=== PATIENT | male | born 1950 | race Caucasian/White ===

== ENCOUNTER 2019-09-20 10:39 | Outpatient (CLI) | payer MEDICAID, MEDICARE, SELFPAY | END 2019-09-20 10:40 | disposition home or self-care (01) | LOC: RAD 10:46 | PROVIDERS: Visit Provider Registered Nurse | DX: M54.41 Lumbago with sciatica, right side (principal); M54.42 Lumbago with sciatica, left side; G89.29 Other chronic pain; M25.562 Pain in left knee; M25.362 Other instability, left knee ==

== ENCOUNTER 2019-10-22 13:10 | Outpatient (CLI) | payer MEDICARE, MEDICAID, SELFPAY ==
--- NOTE | 2019-10-22 13:29 | MR_ITS ---
WS: [id number] MRI LEFT KNEE HISTORY: ARTHRITIS COMPARISON: None available. Anterior cruciate ligament: Intact. Posterior cruciate ligament: There is abnormal signal in orientation of the posterior cruciate ligame nt. Tear in the mid body of the PCL. Medial collateral ligament: Intact. Posterior lateral corner structures: Intact. Medial menisci: Intrasubstance degeneration in the posterior horn. No tear is appreciated. Increased signal extends into the meniscal root. Lateral meniscus: Intact. Normal signal, size and shape. Extensor mechanism: Distal quadriceps tendon and patellar tendons are intact. Fluid and soft tissue: Small suprapatellar joint effusion. Very tiny amount of fluid in the region of Atkins's cyst. Osseous and articular structures: Patellofemoral compartment: Mild narrowing of patellofemoral joint space. Mild thinning of the cartil age but no marrow signal abnormality. Medial compartment: Mild narrowing with preservation of the cartilage. Lateral compartment: Mild narrowing with preservation of the cartilage. MR/MR knee LT wo con* [id number] IMPRESSION: 1. Abnormal PCL. Markedly thickened PCL with increased signal and loss of the normal fibers. Suspect grade versus complete tear in the mid body of the PCL. 2. Mild tricompartment osteoarthritis. 3. Moderate-sized suprapatellar joint effusion.
--- NOTE | 2019-10-22 13:29 | MR_ITS ---
WS: [id number] MRI LUMBAR SPINE NONCONTRAST HISTORY: CHRONIC MIDLINE LOW BACK PAIN WITH BILATERAL SCIATICA COMPARISON: None available. TECHNIQUE: Sagittal and axial multisequence imaging is submitted. Motion artifact in the cervical region. Mild central stenosis as expected at the C4-5 level. Straightening of the normal lumbar lordosis. Degenerative spondylitic changes and disc desiccation th roughout the lumbar spine. There is marrow edema in the L4 and L5 vertebral body which is probably de generative. No fracture. Mild desiccation of the disc. Conus terminates normally at L1-2 disc level. L1-L2: Annular disc bulging and moderate osteophytic ridging. Mild facet arthropathy. Mild contact on the ventral thecal sac. There is mild central and subarticular recess stenosis. Disc osteophyte comp mike centrally encroaches upon the conus. L2-L3: Annular disc bulging and osteophytosis. Mild facet joint arthropathy. Mild central and subarti cular recess stenosis. L3-L4: Diffuse annular disc bulging and facet arthropathy. Mild central and subarticular recess steno sis. Mild encroachment of the foramen. L4-L5: Annular disc bulging and facet arthropathy. Severe ligamentum flavum hypertrophy and facet dennys nt arthropathy encroaching upon the thecal sac. Osteophytes encroach into the subarticular recesses. Moderate central and subarticular recess stenosis. Moderate bilateral foraminal stenosis. L5-S1: Facet joint osteophytes extend into the foramen. Moderate bilateral foraminal stenosis. Predom inantly due to facet arthropathy. Seen only on the localizer image is a mass from the superior pole of the RIGHT kidney measuring 4.1 c m. May be a cyst. Solid mass needs to be excluded. Abdominal aortic aneurysm measuring 4.3 cm is also suspected. MR/MR lumbar spine wo con* [id number] IMPRESSION: 1. Quality of examination is limited by motion. 2. Multilevel significant lumbar spondylosis. 3. Moderate central, subarticular recess and foraminal stenosis at L4-5. 4. Moderate bilateral foraminal stenosis at L5-S1. Osteophytes encroach into t he foramen from the facet joints. 5. Mild central and subarticular recess stenosis at L1-2 and L2-3 and L3-4. Di sc osteophyte encroachment upon the conus at the L1-2 level. 6. Abdominal aortic aneurysm measures 4.3 cm. Recommend follow-up ultrasound e valuation. 7. RIGHT renal mass. 4.1 cm mass in the superior pole RIGHT kidney. Recommend follow-up ultrasound evaluation to characterize mass further.
== END 2019-10-22 13:11 | disposition home or self-care (01) ==
PROVIDERS: Visit Provider Registered Nurse
DX: M47.896 Other spondylosis, lumbar region (principal); M48.061 Spinal stenosis, lumbar region without neurogenic claudication; I71.4 Abdominal aortic aneurysm, without rupture; M17.12 Unilateral primary osteoarthritis, left knee; M25.362 Other instability, left knee; M25.462 Effusion, left knee
CPT/HCPCS: 72148; 73721

== ENCOUNTER 2019-10-31 14:20 | Outpatient (CLI) | payer MEDICARE, MEDICAID, SELFPAY ==
--- NOTE | 2019-10-31 14:25 | US_ITS ---
WS: [id number] Bilateral renal ultrasound, 10/31/2019 Clinical Data: MASS OF RIGHT KIDNEY Comparison: MRI of the lumbar spine, 10/22/2019 Findings: The right kidney measures 11.1 cm x 5.6 cm x 7.0 cm and the left kidney is 11.0 cm x 6.1 cm x 7.1 cm. And is a simple cyst of the right kidney measured 3.67 x 4.06 x 4.16 cm. No right renal mass is note d. The left kidney shows no cysts, masses or hydronephrosis. The abdominal aorta shows an abdominal a ortic aneurysm with the greatest AP diameter of 4.04 cm. No leakage is seen. Inferior cava is unremar kable. The bladder was scanned and was not remarkable. There was an enlarged prostate measuring 4.37 x 4.91 x 5.65 cm. US/US renal BI with bladder Impression: 1. Negative bilateral renal ultrasound. 2. Simple cyst of the right kidney with greatest diameter of 4.06 cm. 3. Abdominal aortic aneurysm measuring 4.04 cm. 4. Prostate enlarged.
--- NOTE | 2019-10-31 14:28 | USCV_ITS ---
José Lu Age: 69 Gender: M : 1950 Exam Date: 10/31/2019 14:51 Ordering Phys: Jael Rajan RADAR REPAIRER RADAR REPAIRER Technologist: Maye Amaro Exam Location: [facility] – [place] Indication: AAA SEEN ON MRI HISTORY: EVAUL OF AAA Diameter (cm) AP x Transverse x Length Velocity (cm/s) Waveform Prox Aorta: 2.29 x 2.29 x 93.80 Mid Aorta: 4.18 x 4.34 x 8.34 121.50 Distal Aorta: 3.30 x 3.48 x 49.40 Right Iliac Prox: 1.68 x 1.58 x 66.10 Left Iliac Prox: 1.51 x 1.57 x 63.50 Stent Prox Landing x x Aneurysmal Sac Max x x Lt Lat Sac Dim Rt Lat Sac Dim Stent Dist Landing x x Right Iliac Stent x x Left Iliac Stent x x Right Renal Art Left Renal Art FINDINGS: CONCLUSIONS AAA mid and distal abdominal aorta measuring 4.1 x 4.3cm AP x Transverse mid aorta and 3.3 x 3.4cm distal aorta. Normal iliac arteries. Moderate arteriovascular disease within the abdominal aorta. Axel Holcomb MD (Electronically Signed) Final Date: 31 October 2019 15:35 S
== END 2019-10-31 14:21 | disposition home or self-care (01) ==
LOC: RAD 14:23 → RAD CLINIC 14:23
PROVIDERS: Referring Provider Registered Nurse; Visit Provider Orthopaedic Surgery
DX: N28.89 Other specified disorders of kidney and ureter (principal); I71.4 Abdominal aortic aneurysm, without rupture; N28.1 Cyst of kidney, acquired; N40.0 Benign prostatic hyperplasia without lower urinary tract symptoms; M25.562 Pain in left knee
CPT/HCPCS: 73560; 73565; 76706; 76770; 76857

== ENCOUNTER 2019-12-15 09:10 | Outpatient (CLI) | payer MEDICARE, MEDICAID, SELFPAY ==
--- NOTE | 2019-12-15 10:00 | CT_ITS ---
WS: [id number] CTA ABDOMEN TECHNIQUE: Noncontrast plus contrast enhanced CTA of the abdominal aorta with coronal and sagittal re formatted images and additional MIP Images. CLINICAL INFORMATION: AAA by ultrasound COMPARISON: Ultrasound October 31, 2019 DLP: 882.[address] scans at [facility] [place] use at least one of these dose optimization techniques: automat ed exposure control; mA and/or kV adjustment per patient size (includes targeted exams where dose is matched to clinical indication); or iterative reconstruction. FINDINGS: Comparison recent ultrasound October 31, 2019. Again seen is the infrarenal abdominal aortic aneurys m measuring 3.6 x 3.6 x 7.6 cm AP by transverse by craniocaudal. Retroaortic left renal vein. Slightl y tortuous and ectatic common iliac arteries right greater than left. Mild aortic atheromatous disease. Celiac and SMA are patent with mild calcification at the origins. P roximal renal arteries are patent. Mild stenosis of the left renal artery origin. Inferior mesenteric artery appears patent. Normal renal parenchyma enhancement. Adrenal glands are normal. No hydronephrosis. Right renal cyst m easuring 4.1 x 4.7 CM. Liver appears normal. Normal gallbladder. Normal spleen. Normal GE junction. L simon bases are well aerated. Calcified granuloma right lower lobe. Normal caliber small and large bowel. Enlarged prostate measuring 4.8 x 7.0 x 6.6 CM. Recommend corre lation PSA.. CT/CT angio abdomen pelvis [id number] IMPRESSION: 1. Infrarenal abdominal aortic aneurysm measuring 3.6 x 3.6 x 7.6 cm AP by tra nsverse by craniocaudal. 2. Celiac, SMA, and YELITZA are patent. 3. Both renal arteries are patent with mild stenosis of the left renal artery origin. 4. Right upper pole renal cyst measuring 4.1 x 4.7 cm. 5. Enlarged prostate measuring 4.8 x 7.0 6.6 cm. Recommend correlation PSA.
[2019-12-15] MEDS: iohexol 350 mg/mL 100 mL Btl IV (11:05)
[2019-12-15 11:51] LABS: Blood Urea Nitrogen 18 mg/dL (8-23); Glomerular Filtration Rate 60.4 mL/min (90-130)
== END 2019-12-15 09:11 | disposition home or self-care (01) ==
LOC: RADWPI 09:14
PROVIDERS: PCP Registered Nurse; Visit Provider Thoracic Surgery (Cardiothoracic Vascular Surgery)
DX: I71.4 Abdominal aortic aneurysm, without rupture (principal); I70.1 Atherosclerosis of renal artery; N28.1 Cyst of kidney, acquired; N40.0 Benign prostatic hyperplasia without lower urinary tract symptoms
CPT/HCPCS: 74174; 82565; 84520; Q9967

== ENCOUNTER 2020-06-15 10:14 | Outpatient (CLI) | payer MEDICARE, MEDICAID, SELFPAY ==
--- NOTE | 2020-06-15 10:15 | USCV_ITS ---
José Lu Age: 70 Gender: M : 1950 Exam Date: 06/15/2020 10:21 Ordering Phys: Jose Valladares MD (Andy) ([email or web address]) Technologist: Addison Narvaez Exam Location: [facility] – [place] Indication: AAA HISTORY: Diameter (cm) AP x Transverse x Length Velocity (cm/s) Waveform Prox Aorta: 2.17 x 2.13 x 78.50 Biphasic Mid Aorta: 4.02 x 4.05 x 74.40 Biphasic Distal Aorta: 3.17 x 3.05 x 70.20 Biphasic Right Iliac Prox: 1.39 x 1.33 x 82.00 Biphasic Left Iliac Prox: 1.27 x 1.43 x 81.00 Biphasic Stent Prox Landing x x Aneurysmal Sac Max x x Lt Lat Sac Dim Rt Lat Sac Dim Stent Dist Landing x x Right Iliac Stent x x Left Iliac Stent x x Right Renal Art Left Renal Art FINDINGS: Mild to moderate diffuse plaques in the abdominal aorta. Fusiform dilatation of the mid and distal abdominal aorta. Normal Doppler flow velocities CONCLUSIONS Aneurysmal dilatation of the mid abdominal aorta measuring 4.02 x 4.05 cm Aneurysmal dilatation of the distal abdominal aorta measuring 3.17 x 3.05 cm Mild to moderate diffuse plaques in the abdominal aorta. Slightly ectatic proximal common iliac arteries bilaterally. Compared to the study from 10/31/2019, there may not be a significant change in the size of the aneurysm Dr Raman Gomez MD [facility] (Electronically Signed) Final Date: 15 June 2020 18:50 S
== END 2020-06-15 10:15 | disposition home or self-care (01) ==
LOC: US 10:17
PROVIDERS: PCP Registered Nurse; Visit Provider Thoracic Surgery (Cardiothoracic Vascular Surgery)
DX: I71.4 Abdominal aortic aneurysm, without rupture (principal)
CPT/HCPCS: 93978

== ENCOUNTER → 2020-07-19 10:34 | Outpatient (BNVA) | payer MEDICAID, SELFPAY | PROVIDERS: PCP Registered Nurse; Visit Provider Urology | DX: R97.20 Elevated prostate specific antigen [PSA] (principal); R79.89 Other specified abnormal findings of blood chemistry; N40.1 Benign prostatic hyperplasia with lower urinary tract symptoms | CPT/HCPCS: 81003; 84153; 84403 ==

== ENCOUNTER 2020-12-23 11:16 | Outpatient (CLI) | payer MEDICARE, MEDICAID, SELFPAY ==
--- NOTE | 2020-12-23 11:30 | XR_ITS ---
WS: [id number] LUMBAR SPINE: 3 VIEWS TECHNIQUE: AP, lateral and L5-S1 spot. HISTORY: LOW BACK PAIN COMPARISON: None available. Retrolisthesis L2 and L3 by 2 mm. Anterior bridging osteophytes throughout the lumbar spine with hype rtrophic endplate changes involving the vertebral bodies. Facet joint arthritis most significant at L 5-S1. No fractures. Mild narrowing of the disc spaces. Mild bilateral SI joint narrowing. Mild atherosclerosis aorta. XR/XR lumbar spine 2-3V* [id number] IMPRESSION: Moderate spondylitic changes in the lumbar spine with no fracture.
== END 2020-12-23 11:17 | disposition home or self-care (01) ==
LOC: RADWPI 11:22
PROVIDERS: PCP Registered Nurse; Visit Provider Registered Nurse
DX: M54.5 Low back pain (principal)
CPT/HCPCS: 72100

== ENCOUNTER 2021-01-24 10:33 | Outpatient (CLI) | payer MEDICARE, MEDICAID, SELFPAY ==
--- NOTE | 2021-01-24 10:42 | USCV_ITS ---
José Lu Age: 70 Gender: M : 1950 Exam Date: 01/24/2021 10:54 Ordering Phys: Dominique Jasso Technologist: Exam Location: [facility] – [place] Indication: AAA HISTORY: Diameter (cm) AP x Transverse x Length Velocity (cm/s) Waveform Prox Aorta: 2.03 x 1.87 x 102.60 Biphasic Mid Aorta: 4.58 x 3.81 x 98.40 Biphasic Distal Aorta: 4.12 x 4.14 x 112.30 Biphasic Right Iliac Prox: 1.61 x 1.81 x 156.60 Biphasic Left Iliac Prox: 1.47 x 1.82 x 146.90 Biphasic Stent Prox Landing x x Aneurysmal Sac Max x x Lt Lat Sac Dim Rt Lat Sac Dim Stent Dist Landing x x Right Iliac Stent x x Left Iliac Stent x x Right Renal Art Left Renal Art FINDINGS: Comparison:. 06/15/20. Mild increase in size of the fusiform AAA since the prior exam. Maximum diameter is now 4.6 cm. Returns to normal diameter at the bifurcation. Mild atherosclerois bilateral common iliac arteries. CONCLUSIONS AAA now measures 4.6 cm. Increased in size since the prior exam. Dr. Yolanda Vazquez DO (Electronically Signed) Final Date: 24 Jan 2021 13:23 S
== END 2021-01-24 10:34 | disposition home or self-care (01) ==
LOC: US 10:35
PROVIDERS: PCP Registered Nurse; Visit Provider Registered Nurse
DX: I71.4 Abdominal aortic aneurysm, without rupture (principal)
CPT/HCPCS: 93978

== ENCOUNTER → 2021-01-27 16:02 | Outpatient (BNVA) | payer MEDICARE, MEDICAID, SELFPAY | PROVIDERS: PCP Registered Nurse; Visit Provider Orthopaedic Surgery | DX: M54.2 Cervicalgia; M48.061 Spinal stenosis, lumbar region without neurogenic claudication | CPT/HCPCS: 72110 ==

== ENCOUNTER 2021-04-14 08:49 | Outpatient (CLI) | payer MEDICARE, MEDICAID, SELFPAY ==
--- NOTE | 2021-04-14 09:09 | CT_ITS ---
WS: [id number] CT ANGIOGRAPHY abdomen and pelvis. HISTORY: I71.4 - Abdominal aortic aneurysm, without rupture TECHNIQUE: CT angiogram is performed during IV injection. Reformation images reviewed. All CT scans a [facility] use at least one of these dose optimization techniques: automated exposure co ntrol; mA and/or kV adjustment per patient size (includes targeted exams where dose is matched to cli nical indication); or iterative reconstruction. CONTRAST: Omnipaque 350; 190 mL IV. DLP: 1980.23 mGycm COMPARISON: 12/15/2019 Mild emphysematous changes at the lung bases. Small pericardial effusion anteriorly. No change in the size of the fusion. Small hiatal hernia. Abdominal aorta: Infrarenal abdominal aortic aneurysm is again identified extending over length of 8. 7 cm in length. Maximum transverse diameter 4.3 cm and AP diameter 4.1 cm. Aneurysm tapers to the bi furcation. Small amount of calcified plaque at the origin SMA. No occlusions. Small amount of noncalc ified plaque at the origin of the LEFT renal artery with mild stenosis. RIGHT renal artery is normal. Only single renal arteries are identified. Retroaortic LEFT renal vein. Calcifications continue into the iliac arteries bilaterally with ectasia. No aneurysms. Mild hepatomegaly and hepatic steatosis. Normal portal vein. Normal spleen and pancreas. Mild hyperpl petrona of the adrenal glands, LEFT greater than RIGHT. No solid renal mass. RIGHT renal cyst measures 3 .8 x 4.2 cm. No ascites or adenopathy. Normal gallbladder. No GI tract obstruction. Appendix is jean l. Prostate gland is enlarged. Prostate measures 7.6 x 5.8 x 7.0 cm encroachment into the base of the urinary bladder. Diffuse bladder wall thickening from outlet obstruction. Mild lumbar spondylitic changes. CT/CT angio abdomen pelvis [id number] IMPRESSION: 1. Mild increase in size of the infrarenal abdominal aortic aneurysm measuring 4.1 x 4.3 x 8.7 (AP x transverse x sagittal) cm as compared to 3.6 x 3.6 x 7.6 cm on 12/15/2019. 2. Marked enlargement of prostate gland with bladder wall hypertrophy.
[2021-04-14 09:48] LABS: Blood Urea Nitrogen 18 mg/dL (8-23); Glomerular Filtration Rate 60.2 mL/min (90-130)
[2021-04-14] MEDS: iohexol 350 mg/mL 100 mL Btl IV (10:08)
== END 2021-04-14 08:50 | disposition home or self-care (01) ==
PROVIDERS: PCP Registered Nurse; Visit Provider Thoracic Surgery (Cardiothoracic Vascular Surgery)
DX: I71.4 Abdominal aortic aneurysm, without rupture (principal); N40.0 Benign prostatic hyperplasia without lower urinary tract symptoms
CPT/HCPCS: 74174; 82565; 84520; Q9967

== ENCOUNTER → 2021-08-23 16:00 | Outpatient (BNVA) | payer MEDICARE, MEDICAID, SELFPAY | PROVIDERS: PCP Registered Nurse; Visit Provider Urology | DX: N40.1 Benign prostatic hyperplasia with lower urinary tract symptoms (principal); N52.9 Male erectile dysfunction, unspecified; R97.20 Elevated prostate specific antigen [PSA] | CPT/HCPCS: 81003; 84153; 84403 ==

== ENCOUNTER 2022-01-02 14:22 | Outpatient (CLI) | payer MEDICARE, MEDICAID, SELFPAY ==
--- NOTE | 2022-01-02 | USCV_ITS ---
José Lu Age: 71 Gender: M : 1950 Exam Date: 01/02/2022 14:57 Ordering Phys: Jose Valladares MD (Andy) ([email or web address]) Technologist: Maye Amaro Exam Location: [facility] – [place], [place] Indication: RECHECK ON AAA HISTORY: Known AAA Diameter (cm) AP x Transverse x Length Velocity (cm/s) Waveform Prox Aorta: 2.08 x 2.45 x 87.80 Mid Aorta: 1.93 x x 86.50 Distal Aorta: 4.29 x 5.12 x 7.59 78.90 Right Iliac Prox: 0.84 x 0.89 x 103.60 Left Iliac Prox: 1.48 x 1.18 x 78.00 Stent Prox Landing x x Aneurysmal Sac Max x x Lt Lat Sac Dim Rt Lat Sac Dim Stent Dist Landing x x Right Iliac Stent x x Left Iliac Stent x x Right Renal Art Left Renal Art FINDINGS: Comparison:. 01/24/21. Enlarging AAA, now measure 5.1 cm at maximum diameter. No significant stenosis noted in the abdominal aorta. There is evidence of atherosclerotic plaque no significan stenosis in the right common iliac artery. There is evidence of atherosclerotic plaque no significan stenosis in the left common iliac artery. CONCLUSIONS AAA , enlarging, now measures 5.1 cm at maximum diameter. Dr. Yolanda Vazquez DO (Electronically Signed) Final Date: 02 Jan 2022 16:18 S
== END 2022-01-02 14:23 | disposition home or self-care (01) ==
LOC: RAD 14:23
PROVIDERS: PCP Registered Nurse; Visit Provider Thoracic Surgery (Cardiothoracic Vascular Surgery)
DX: I71.4 Abdominal aortic aneurysm, without rupture (principal)
CPT/HCPCS: 93978

== ENCOUNTER → 2022-01-05 10:12 | Outpatient (BNVA) | payer MEDICARE, MEDICAID, SELFPAY | PROVIDERS: PCP Registered Nurse; Visit Provider Thoracic Surgery (Cardiothoracic Vascular Surgery) | DX: I71.4 Abdominal aortic aneurysm, without rupture (principal) | CPT/HCPCS: 99213 ==

== ENCOUNTER 2022-01-26 13:02 | Outpatient (CLI) | payer MEDICARE, MEDICAID, SELFPAY ==
--- NOTE | 2022-01-26 13:30 | CT_ITS ---
WS: [id number] CTA ABDOMEN TECHNIQUE: Noncontrast plus contrast enhanced CTA of the abdominal aorta with coronal and sagittal re formatted images and additional MIP Images. CLINICAL INFORMATION: AAA COMPARISON: April 14, 2021 DLP: 1112.[address] scans at [facility] use at least one of these dose optimization techniques: automated e xposure control; mA and/or kV adjustment per patient size (includes targeted exams where dose is matc hed to clinical indication); or iterative reconstruction. FINDINGS: Infrarenal abdominal aortic aneurysm today measures 4.2 x 4.2 x 8.6 cm AP by transverse by juan manuel ortega. Lung bases are well aerated. Bibasilar atelectasis. Mild hepatomegaly. Diffuse fatty infiltration of the liver. Normal GE junction. Normal spleen. Normal pancreatic parenchymal enhancement. Adrenal glands are normal. Normal renal parenchymal enhancement. No hydronephrosis. RIGHT upper pole renal cy st measuring 4.2 CM. No periaortic lymphadenopathy. No pelvic lymphadenopathy. Grade 1 anterolisthesi s L4 on L5. Normal sigmoid colon. No evidence of high-grade small or large bowel obstruction. Normal appendix in the RIGHT lower quadrant. Marked prostate enlargement similar to previous measuring 5.0 x 7.4 CM. Thickening of the seminal ves icles bilaterally. Slight induration in the surrounding periprostatic fat. Findings suspicious for ne oplasia. Recommend correlation with PSA. Associated diffuse bladder wall thickening consistent with b ladder outlet obstruction. CT/CT angio abdomen pelvis [id number] IMPRESSION: 1. Stable infrarenal abdominal aortic aneurysm measuring 4.2 x 4.2 x 8.6 CM. 2. Marked prostate enlargement suspicious for neoplasia measuring 5.0 x 7.4 cm unchanged from previous. Thickening of the seminal vesicles with induration in the periprostatic fat. Recommend correlation PSA and urology consultation. 3. Diffuse bladder wall thickening consistent with bladder outlet obstruction. 4. Celiac is patent. Mild stenosis at the SMA origin which is patent with calc ification. Proximal renal arteries are patent. YELITZA is patent. 5. No other significant changes compared to previous.
[2022-01-26] MEDS: iohexol 300 mg/mL 100 mL Btl IV (14:20)
[2022-01-26 14:21] LABS: Blood Urea Nitrogen 10 mg/dL (8-23); Glomerular Filtration Rate 74.1 mL/min (90-130)
== END 2022-01-26 13:03 | disposition home or self-care (01) ==
LOC: RAD 13:03
PROVIDERS: PCP Registered Nurse; Visit Provider Thoracic Surgery (Cardiothoracic Vascular Surgery)
DX: I71.4 Abdominal aortic aneurysm, without rupture (principal); N40.0 Benign prostatic hyperplasia without lower urinary tract symptoms; K55.1 Chronic vascular disorders of intestine
CPT/HCPCS: 74174; 82565; 84520

== ENCOUNTER → 2022-02-02 13:48 | Outpatient (BNVA) | payer MEDICARE, MEDICAID, SELFPAY | PROVIDERS: PCP Registered Nurse; Visit Provider Thoracic Surgery (Cardiothoracic Vascular Surgery) | DX: I71.4 Abdominal aortic aneurysm, without rupture (principal) | CPT/HCPCS: 99213 ==

== ENCOUNTER → 2022-03-28 10:51 | Outpatient (BNVA) | payer MEDICARE, MEDICAID, SELFPAY | PROVIDERS: PCP Registered Nurse; Visit Provider Physician Assistant | DX: M51.37 Other intervertebral disc degeneration, lumbosacral region (principal) | CPT/HCPCS: 72110; 99204; 99214 ==

== ENCOUNTER → 2022-07-10 09:42 | Outpatient (BNVA) | payer MEDICARE, MEDICAID, SELFPAY | PROVIDERS: PCP Registered Nurse; Visit Provider Anesthesiology Pain Medicine | DX: M51.37 Other intervertebral disc degeneration, lumbosacral region (principal); M47.816 Spondylosis without myelopathy or radiculopathy, lumbar region; M79.604 Pain in right leg; M79.605 Pain in left leg | CPT/HCPCS: 99204 ==

== ENCOUNTER → 2022-08-21 12:49 | Outpatient (BNVA) | payer MEDICARE, MEDICAID, SELFPAY | PROVIDERS: PCP Registered Nurse; Visit Provider Anesthesiology Pain Medicine | DX: M54.16 Radiculopathy, lumbar region (principal); M79.604 Pain in right leg; M79.605 Pain in left leg | CPT/HCPCS: 64483; 64484; J1100; J3490 ==

== ENCOUNTER → 2022-09-11 10:02 | Outpatient (BNVA) | payer MEDICARE, MEDICAID, SELFPAY | PROVIDERS: PCP Registered Nurse; Visit Provider Anesthesiology Pain Medicine | DX: M51.37 Other intervertebral disc degeneration, lumbosacral region (principal); M47.816 Spondylosis without myelopathy or radiculopathy, lumbar region; M79.604 Pain in right leg; M79.605 Pain in left leg | CPT/HCPCS: 99214 ==

== ENCOUNTER → 2022-09-28 13:19 | Outpatient (BNVA) | payer MEDICARE, MEDICAID, SELFPAY | PROVIDERS: PCP Registered Nurse; Visit Provider Anesthesiology Pain Medicine | DX: M47.816 Spondylosis without myelopathy or radiculopathy, lumbar region (principal); M79.604 Pain in right leg; M79.605 Pain in left leg | CPT/HCPCS: 64493; 64494; 64495; J3490 ==

== ENCOUNTER 2022-10-18 10:28 | Outpatient (CLI) | payer MEDICARE, MEDICAID, SELFPAY ==
[2022-10-18 11:53] LABS: Prostate Specific AG Urology 2.86 ng/mL (0-4)
[2022-10-18 11:54] LABS: Testosterone Total 321.7 ng/dL (193-740)
== END 2022-10-18 10:29 | disposition home or self-care (01) ==
PROVIDERS: PCP Registered Nurse; Visit Provider Urology
DX: N40.1 Benign prostatic hyperplasia with lower urinary tract symptoms (principal); R79.89 Other specified abnormal findings of blood chemistry
CPT/HCPCS: 36415; 81003; 84153; 84403; 99213

== ENCOUNTER 2022-11-07 15:10 | Outpatient (CLI) | payer MEDICARE, MEDICAID, SELFPAY ==
--- NOTE | 2022-11-07 15:15 | MR_ITS ---
WS: [id number] MRI LUMBAR SPINE NONCONTRAST HISTORY: Low back pain. Bilateral pain. COMPARISON: 10/22/2019. TECHNIQUE: Sagittal and axial multisequence imaging is submitted. Artifact through the cervical spine. L4 anterolisthesis by 5.3 mm. Slight retrolisthesis of L2 and L3 by 2 mm. There is a small amount of marrow edema along the superior endplate of L3 which has progressed since the prior study. No fractures. Mild disc desiccation throughout the lumbar spine. Conus terminates normally at L1-2 disc level. L1-L2: Moderate annular disc bulging with a small central disc protrusion and osteophytic ridging. Th ere is disc contact on the ventral thecal sac. Moderate central with moderate bilateral subarticular recess and mild foraminal stenosis. Subarticular recess has progressed since the prior study. Most si gnificant contact on the traversing L2 nerve roots. L2-L3: Marked annular disc bulging narrowing the subarticular recesses and the central canal. Progres eder of central and bilateral subarticular recess stenosis since the prior study. Moderate central an d bilateral subarticular recess stenosis with encroachment upon the traversing L3 nerve roots. Mild b ilateral foraminal stenosis. L3-L4: Marked annular disc bulging and ligamentum flavum hypertrophy and facet arthritis. Progression of stenosis since the prior study. Moderate central and bilateral subarticular recess stenosis. Mode rate RIGHT and mild LEFT foraminal stenosis. More significant central canal stenosis below the disc l evel. L4-L5: Diffuse annular disc bulging. Severe ligamentum flavum and facet arthritis. Fluid in the facet joints bilaterally. Severe central, bilateral subarticular recess and moderate foraminal stenosis, R IGHT greater than LEFT. L5-S1: Mild disc bulging and facet arthritis. Mild encroachment into the subarticular recesses with m oderate bilateral foraminal stenosis. RIGHT renal cyst 3.6 cm. Prostate gland is enlarged. Large abdominal aortic aneurysm with a maximum d iameter 5.1 cm. Diameter of the aneurysm has increased since 01/26/2022. Maximum diameter at that time was 4.2 cm. MR/MR lumbar spine wo con* [id number] IMPRESSION: 1. Multilevel progression of degenerative disc disease, progression of central , subarticular recess and foraminal stenosis. 2. Severe central, bilateral subarticular recess and moderate foraminal stenos is at L4-5. 3. Moderate central, bilateral subarticular recess and mild foraminal stenosis at L2-3. 4. Moderate central, bilateral subarticular recess stenosis with moderate RIGH T and mild LEFT foraminal stenosis. More significant central stenosis just belo w the disc level. 5. L4 anterolisthesis by 5.3 mm. 6. Abdominal aortic aneurysm, maximum diameter 5.1 cm. Aneurysm measures large r and has progressed since the prior CT angiogram of 01/26/2022. Consider follow -up CT angiogram aorta.
== END 2022-11-07 15:11 | disposition home or self-care (01) ==
LOC: RAD 15:14
PROVIDERS: PCP Registered Nurse; Visit Provider Anesthesiology Pain Medicine
DX: M51.36 Other intervertebral disc degeneration, lumbar region (principal); M48.061 Spinal stenosis, lumbar region without neurogenic claudication; I71.40 Abdominal aortic aneurysm, without rupture, unspecified
CPT/HCPCS: 72148

== ENCOUNTER → 2023-02-13 10:03 | Outpatient (BNVA) | payer MEDICARE, MEDICAID, SELFPAY | PROVIDERS: PCP Registered Nurse; Visit Provider Anesthesiology Pain Medicine | DX: M51.37 Other intervertebral disc degeneration, lumbosacral region (principal); M47.816 Spondylosis without myelopathy or radiculopathy, lumbar region | CPT/HCPCS: 99215 ==

== ENCOUNTER → 2023-03-01 14:11 | Outpatient (BNVA) | payer MEDICARE, MEDICAID, SELFPAY | PROVIDERS: PCP Registered Nurse; Visit Provider Anesthesiology Pain Medicine | DX: M47.816 Spondylosis without myelopathy or radiculopathy, lumbar region (principal); M51.37 Other intervertebral disc degeneration, lumbosacral region; M79.604 Pain in right leg; M79.605 Pain in left leg | CPT/HCPCS: 64493; 64494; 64495; J3490 ==

== ENCOUNTER → 2023-03-21 09:38 | Outpatient (BNVA) | payer MEDICARE, MEDICAID, SELFPAY | PROVIDERS: PCP Registered Nurse; Visit Provider Anesthesiology Pain Medicine | DX: M51.37 Other intervertebral disc degeneration, lumbosacral region (principal); M47.816 Spondylosis without myelopathy or radiculopathy, lumbar region; M79.604 Pain in right leg; M79.605 Pain in left leg | CPT/HCPCS: 99214 ==

== ENCOUNTER → 2023-04-30 13:42 | Outpatient (BNVA) | payer MEDICARE, MEDICAID, SELFPAY | PROVIDERS: PCP Registered Nurse; Visit Provider Anesthesiology Pain Medicine | DX: M54.16 Radiculopathy, lumbar region (principal); M79.604 Pain in right leg; M79.605 Pain in left leg | CPT/HCPCS: 64483; 64484; J1100; J3490 ==

== ENCOUNTER 2023-05-14 08:42 | Emergency (ER) | payer MEDICARE, MEDICAID, SELFPAY ==
[2023-05-14 08:48] VITALS: BP 155/91; PULSE 87; RESP 16; TEMP 36.8; O2SAT 95; BMI 30.4
--- NOTE | 2023-05-14 08:53 | ED_ITS ---
HPI - Extremity Problem General: Chief complaint: Extremity Injury, Lower Stated complaint: LT knee pain Time Seen by Provider: 05/14/23 08:43 Source: patient Mode of arrival: ambulatory Limitations: no limitations History of Present Illness: Patient is a pleasant 73-year-old male who presents to ED today with a complaint of swelling to the inferior aspect of his left knee that he has noticed over the past few days. 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 He states he had this similar issue several years ago and states area was drained. He has noticed a small scab to the area and has started to notice small amount of redness. He maintains full range of motion of the knee joint. MD Complaint: joint swelling and joint pain Onset (ago): day(s) Pain Consistency: constant Location: left and knee Radiation: none Exacerbating factors: other (kneeling) Associated symptoms: Reports no associated symptoms; Deny fever(s) Review of Systems Const: Denies: fever(s), chills, body aches, fatigue or malaise Musc: Reports: joint pain and joint swelling; Denies: extremity pain, extremity swelling, joint warmth, limited range of motion, muscle cramps or muscle weakness Neuro: Denies: numbness in extremities, weakness in extremities or sensory brit nges PFS ED PFSH: Medical History AAA (abdominal aortic aneurysm) without rupture BPH loc w urin obs/LUTS Elevated PSA Erectile dysfunction HTN (hypertension) Hyperlipemia, mixed Hypogonadism Surgical History Hx of cervical spine surgery Family History Mother , AT AGE 87 Heart attack CAD (coronary artery disease) Social History Smoking and tobacco status: never smoked Alcohol intake: never Substance/Drug Use: never Adopted: No Caregiver/support person: No Lives independently: No Household members: spouse Marital status: Current occupational status: employed Physical Exam Const: COMMON NORMALS: no acute distress, average body habitus, patient oriented x3, no limitations, healthy appearing, alert and well nourished Extremity: COMMON NORMALS: full ROM, capillary refill normal, no clubbing, cyanosis or edema, no calf tenderness and no pedal edema GENERAL: Yes normal exam except as noted LEFT LOWER EXTREMITY: Yes knee joint Left knee: Yes inspection (appears to have an infrapatellar bursitis), Yes ROM (normal) and Yes neurovascular exam (normal) OTHER: small scabs overlying bilateral infrapatellar regions most likely from him often being on his knees for work; golf ball sized infrapatellar bursitis to L knee has a scant amount of erythema starting; no warmth/streaking; full ROM of knee joint; no drainage/discharge noted Neuro: COMMON NORMALS: patient oriented x3, moves all extremities, no focal motor deficits and no sensory deficits noted SENSORIUM/ORIENTATION: Yes alert Course Vital Signs: Vital signs: Vital Signs Temperature 98.2 F 05/14/23 08:48 Pulse Rate 77 05/14/23 09:13 Respiratory Rate 16 05/14/23 08:48 Blood Pressure 155/91 05/14/23 09:13 Pulse Oximetry 95 05/14/23 09:13 Oxygen Delivery Me thod Room Air 05/14/23 08:48 MDM - Extremity (Nontraumatic) Medical Decision Making Patient appears to have a left infrapatellar bursitis most likely from him often being on his knees for work/working on cars. He states he has had this issue previously. There is an overlying scab and a small amount of erythema starting so we will go ahead and cover him with antibiotics. We will place him on anti- inflammatories and steroids. Discussed strict joint protection with padding and compression. Will refer him to orthopedics in case symptoms do not seem to improve conservatively. Discharge Plan Discharge Patient Disposition: Home Clinical Impression: Bursitis of left knee Qualifiers: Knee bursitis location: unspecified Qualified Code(s): M70.52 - Other bursitis of knee, left knee Condition: Stable Prescriptions: New cephalexin 500 mg capsule 500 mg PO Q6H 7 Days Qty: 28 0RF Medrol (Dalton) 4 mg tablets,dose pack See Rx Instructions .ROUTE .COMPLEX Qty: 21 0RF Rx Instructions: orally per package directions Continued diclofenac sodium 75 mg tablet,delayed release (DR/EC) 75 mg PO BID Qty: 20 0RF No Action tamsulosin [Flomax] 0.4 mg capsule 0.8 mg PO DAILY lisinopril 40 mg tablet 40 mg PO DAILY omeprazole 20 mg capsule,delayed release(DR/EC) 20 mg PO DAILY lovastatin 20 mg tablet 20 mg PO DAILY alprazolam [Xanax] 0.25 mg tablet 0.125 mg PO TID PRN aspirin [Aspir-81] 81 mg tablet,delayed release (DR/EC) 81 mg PO .COMPLEX Rx Instructions: 81 mg PO 3 X WEEKLY; sodium chloride 0.9 % Solution 2 ml epidural ONCE Qty: 1 0RF bupivacaine (PF) 0.25 % (2.5 mg/mL) solution 2 ml Infiltration ONCE Qty: 1 0RF bupivacaine (PF) 0.25 % (2.5 mg/mL) solution 3 ml Infiltration ONCE Qty: 1 0RF Discharge Orders: Discharge ED (Routine); Ordered 05/14/23 Ordered By: Miri Nam Referrals: Jael Rajan FNP [Primary Care Provider] - Patient Instructions: Knee Bursitis (ED) Activity Restrictions/Additional Instructions: As we discussed I would like you to start using the TAMMY wrap for compression. You also need to pad the joint or use some type of cushion pad anytime you are going to be working on your knees. Ice the knee for 15-20 minutes every 1-2 hours. I am placing you on steroids and anti-inflammatories to also try to help. We will place you on antibiotics as there was small amount of redness starting. As we discussed I will place a referral to case management to help get you set up with orthopedics. They may be able to inject intrabursal steroids if you fail conservative therapies. Coding Level of Care Code ED Conservation Officer for Ami Shea
[2023-05-14 09:13] VITALS: BP 155/91; PULSE 77; O2SAT 95
--- NOTE | 2023-05-14 10:04 | DCPLANNER ---
Addendum entered by Clarissa Berumen 05/15/23 09:05: Patient had a follow up appointment scheduled with ortho - patient did attend. Original Note: base manager had message to schedule a follow up appointment for patient with ortho. base manager sent patients information to the front office staff at ortho. Patients information will be printed and reviewed. Clinic will call patient with appointment information.
== END 2023-05-14 09:15 | disposition home or self-care (01) ==
PROVIDERS: Emergency Provider Physician Assistant; PCP Registered Nurse
DX: M47.816 Spondylosis without myelopathy or radiculopathy, lumbar region (principal); M54.16 Radiculopathy, lumbar region; M51.37 Other intervertebral disc degeneration, lumbosacral region; M70.52 Other bursitis of knee, left knee; Z79.82 Long term (current) use of aspirin; I10 Essential (primary) hypertension; E78.2 Mixed hyperlipidemia
CPT/HCPCS: 73560; 73565; 99213; 99214; 99283

== ENCOUNTER → 2023-05-24 11:41 | Outpatient (BNVA) | payer MEDICARE, MEDICAID, SELFPAY | PROVIDERS: PCP Registered Nurse; Visit Provider Physician Assistant | DX: M70.52 Other bursitis of knee, left knee (principal); Z79.899 Other long term (current) drug therapy | CPT/HCPCS: 20610; 87070; 87075; 87077; 87186; 87205; 99213 ==

== ENCOUNTER → 2023-06-07 13:42 | Outpatient (BNVA) | payer MEDICARE, MEDICAID, SELFPAY | PROVIDERS: PCP Registered Nurse; Visit Provider Physician Assistant | DX: M70.52 Other bursitis of knee, left knee (principal) | CPT/HCPCS: 99213 ==

== ENCOUNTER → 2023-06-14 10:16 | Outpatient (BNVA) | payer MEDICARE, MEDICAID, SELFPAY | PROVIDERS: PCP Family Medicine; Visit Provider Orthopaedic Surgery | DX: M79.604 Pain in right leg; M79.605 Pain in left leg; M48.061 Spinal stenosis, lumbar region without neurogenic claudication | CPT/HCPCS: 99214 ==

== ENCOUNTER 2023-07-10 15:32 | Outpatient (CLI) | payer MEDICARE, SELFPAY ==
--- NOTE | 2023-07-10 16:00 | CT_ITS ---
WS: [id number] CT ANGIOGRAPHY abdomen and pelvis. HISTORY: AAA TECHNIQUE: CT angiogram is performed during IV injection. Reformation images reviewed. All CT scans a [employer] [employer] use at least one of these dose optimization techniques: automated exposure contro l; mA and/or kV adjustment per patient size (includes targeted exams where dose is matched to clinica l indication); or iterative reconstruction. CONTRAST: Omnipaque 350; 100 mL IV. DLP: 599.28 mGy.cm COMPARISON: 01/26/2022 Lung bases are clear. Normal size heart. Abdominal aorta: Patient has a known abdominal aortic aneurysm. Aneurysm is slightly increasing in si ze. Maximum transverse diameter below the level of the renal arteries is 5.1 cm. Aneurysm measures 5. 1 x 5.1 x 8.8 cm. Increasing asymmetric thrombus within the aneurysm. Aneurysm is patent to the bifur cation. Mild atherosclerotic and ectatic changes noted within the iliac arteries. No occlusions. Mild plaque at the origin of the SMA and celiac axis and also the renal arteries. Kidneys are both being perfused normally. The duodenum is closely draped and being displaced by the aortic aneurysm. Negative liver, spleen and gallbladder. Mild LEFT adrenal hyperplasia. Negative RIGHT adrenal gland. Negative pancreas. No common bile duct dilatation. Again noted is a low-attenuation mass in the super ior pole RIGHT kidney with a maximal diameter 4.5 cm. This is probably a complex cyst. Hounsfield uni ts are slightly elevated. No change since 12/15/2019. No GI tract obstruction. No evidence for colitis. Again noted is prostate gland enlargement encroachi ng into the urinary bladder. Advanced degenerative changes of the lumbar spine. Components of spine stenosis are noted in the lowe r lumbar spine. IMPRESSION: 1. Slight increase in size of the infrarenal abdominal aortic aneurysm since 01/26/2022. Aneurysm jessica ures 5.1 x 5.1 x 8.8 cm. Compares to 4.2 x 4.2 x 8.6 cm on the most recent study. There has also been increase in the amount of intraluminal thrombus. 2. Mild atherosclerosis involving the mesenteric arteries and renal arteries. 3. Marked prostate gland enlargement as seen on the prior study.
[2023-07-10] MEDS: iohexol 350 mg/mL 500 mL Btl (per mL) IV (16:01)
[2023-07-10 16:26] LABS: Blood Urea Nitrogen 22 mg/dL (8-23)
== END 2023-07-10 15:33 | disposition home or self-care (01) ==
LOC: RAD 15:34
PROVIDERS: PCP Family Medicine; Visit Provider Thoracic Surgery (Cardiothoracic Vascular Surgery)
DX: I71.43 Infrarenal abdominal aortic aneurysm, without rupture (principal); I74.09 Other arterial embolism and thrombosis of abdominal aorta; K55.1 Chronic vascular disorders of intestine; I70.1 Atherosclerosis of renal artery
CPT/HCPCS: 74174; 82565; 84520; Q9967

== ENCOUNTER → 2023-07-19 13:13 | Outpatient (BNVA) | payer MEDICARE, MEDICAID, SELFPAY | PROVIDERS: PCP Family Medicine; Visit Provider Thoracic Surgery (Cardiothoracic Vascular Surgery) | DX: I71.40 Abdominal aortic aneurysm, without rupture, unspecified (principal) | CPT/HCPCS: 99213 ==

== ENCOUNTER → 2023-09-25 10:18 | Outpatient (BNVA) | payer MEDICARE, MEDICAID, SELFPAY | PROVIDERS: PCP Family Medicine; Visit Provider Nurse Practitioner Family | DX: R39.9 Unspecified symptoms and signs involving the genitourinary system (principal); R39.15 Urgency of urination | CPT/HCPCS: 81000 ==

== ENCOUNTER 2024-08-28 13:55 | Outpatient (CLI) | payer MEDICARE, MEDICAID, SELFPAY ==
--- NOTE | 2024-08-28 13:58 | USCV_ITS ---
José Lu Age: 74 Gender: M : 1950 Exam Date: 08/28/2024 14:18 Ordering Phys: NOT ON FILE, DOCTOR XX Technologist: BM [place]am [place] [facility] [place]: AAA HISTORY: Diameter (cm) AP x Transverse x Length Velocity (cm/s) Waveform Prox Aorta: 2.20 x 2.00 x 66.90 Biphasic Mid Aorta: 2.20 x 2.10 x 74.00 Biphasic Distal Aorta: 5.20 x 6.20 x 9.30 75.20 Biphasic Right Iliac Prox: 1.63 x 1.37 x 106.10 Biphasic Left Iliac Prox: 1.12 x 1.50 x 115.10 Biphasic Stent Prox Landing x x Aneurysmal Sac Max x x Lt Lat Sac Dim Rt Lat Sac Dim Stent Dist Landing x x Right Iliac Stent x x Left Iliac Stent x x Right Renal Art Left Renal Art FINDINGS: Comparison:. 01/02/22 Enlarging AAA, maximum diameter now 6.2 cm. No evidence of periaortic fluid is detected. There is evidence of atherosclerotic plaque no significan stenosis in the right common iliac artery. There is evidence of atherosclerotic plaque no significan stenosis in the left common iliac artery. CONCLUSIONS Enlarging AAA, maximum diameter now 6.[address] Yolanda Vazquez DO (Electronically Signed) Final Date: 28 August 2024 14:44 S
== END 2024-08-28 13:56 | disposition home or self-care (01) ==
LOC: RAD 13:55
PROVIDERS: PCP Family Medicine
DX: I71.43 Infrarenal abdominal aortic aneurysm, without rupture (principal); I70.8 Atherosclerosis of other arteries
CPT/HCPCS: 93978

== ENCOUNTER → 2025-03-05 09:50 | Outpatient (BNVA) | payer MEDICARE, MEDICAID, SELFPAY | PROVIDERS: PCP Family Medicine; Visit Provider Orthopaedic Surgery | DX: M48.062 Spinal stenosis, lumbar region with neurogenic claudication (principal); Z01.818 Encounter for other preprocedural examination | CPT/HCPCS: 36415; 72110; 80053; 81001; 85025; 99214 ==

== ENCOUNTER → 2025-03-13 10:53 | Outpatient (BNVA) | payer MEDICARE, MEDICAID, SELFPAY | PROVIDERS: PCP Family Medicine; Visit Provider Family Medicine | DX: Z01.818 Encounter for other preprocedural examination (principal); R93.1 Abnormal findings on diagnostic imaging of heart and coronary circulation | CPT/HCPCS: 93005 ==

== ENCOUNTER 2025-05-08 07:04 | Day surgery (SDC) | payer MEDICARE, MEDICAID, SELFPAY ==
[2025-05-08] VITALS (13 sets, daily range): BP systolic 107–147; BP diastolic 53–83; PULSE 66–90; RESP 12–18; TEMP 36.1–36.6; O2SAT 93–99; BMI 31.8
--- NOTE | 2025-05-08 07:40 | ANES.PREANE2 ---
Pre-Anesthetic Assessment Height/Weight: Height 5 ft 11 in Temp Pulse Resp BP Pulse Ox O2 Del Method 97.9 F 90 18 147/80 97 Room Air 05/08/25 07:22 05/08/25 07:22 05/08/25 07:22 05/08/25 07:22 05/08/25 07:22 05/08/25 07:22 Preop Diagnosis: Lumbar stenosis neurogenic claudication Operation Date: 05/08/25 08:30 Proposed Procedures p Lumbar Spine Decompression Lumbar Decompression(Not Applicable) - Kai Araiza, DO Was Beta Nain taken within 24 hours: N/A Was Clonidine taken within 24 hours: N/A Last intake: Intake Last Liquid Date 05/07/25 Last Liquid Time 18:00 Last Solid Date 05/07/25 Last Solid Time 18:00 Social No alcohol and No tobacco Exam alert, oriented x 3, clear to auscultation bilaterally and regular rate & rhythm Airway Submandibular: within normal limits Cervical ROM: within normal limits Mallampati: Class III Dentition: false Anesthetic Plan ASA status: 4 Anesthesia: General Other: No prior issues with anesthesia N.p.o. since yesterday evening History of hypertension on lisinopril GERD, controlled with omeprazole Patient has a known AAA, last measurement was 5.5 cm infrarenal. Patient was seen by vascular and endovascular surgery and [place] on 04/09/2025 Per scanned in chart, vascular surgeon put from my standpoint, there is no reason he cannot proceed with any necessary spine intervention. I told him that undergoing the surgery will not increase the risk of any aneurysm related event. He would like to continue with aneurysm surveillance as he might want the aneurysm fixed if it became larger. Plan to follow-up in 1 year with [facility]. Although I mostly agree with this statement, discussed with patient that if his blood pressure was too become highly elevated due to surgery, this would put him at increased risk. Recent labs reviewed from March and for procedure Type and screen performed Plan for GETA Medications/Allergies Home Medications ?Medication ?Instructions ?Recorded ?Confirmed ?Last Taken ?Type lisinopril 40 mg tablet 40 mg PO DAILY 10/30/19 05/07/25 05/07/25 History lovastatin 20 mg tablet 20 mg PO DAILY 10/30/19 05/07/25 05/07/25 History omeprazole 20 mg capsule,delayed 20 mg PO DAILY 10/30/19 05/07/25 05/07/25 History release aspirin 81 mg tablet,delayed 81 mg PO .COMPLEX 11/21/19 05/07/25 05/06/25 History release (Aspir-) tamsulosin 0.4 mg capsule (Flomax) 0.8 mg PO DAILY 07/19/20 05/07/25 05/07/25 History alprazolam 0.25 mg tablet (Xanax) 0.125 mg PO TID PRN Anxiety 01/05/22 05/07/25 05/04/25 History hydrocodone 5 mg-acetaminophen 325 1 tab PO DAILY 05/07/25 05/07/25 05/07/25 History mg tablet Allergies Allergy/AdvReac Type Severity Reaction Status Date / Time Penicillins Allergy Unknown Verified 05/07/25 12:30 PFS Anesthesia Medical History HTN (hypertension) Hyperlipemia, mixed Erectile dysfunction Elevated PSA Hypogonadism BPH loc w urin obs/LUTS AAA (abdominal aortic aneurysm) without rupture Surgical History Hx of cervical spine surgery Family History Mother , AT AGE 87 Heart attack CAD (coronary artery disease) Social History Smoking and tobacco/nicotine status: never used tobacco/nicotine Alcohol intake: never Substance/Drug Use: never Adopted: No Caregiver/support person: No Lives independently: No Household members: spouse Marital status: Current occupational status: employed
--- NOTE | 2025-05-08 07:51 | W.PM.OPSFHP ---
Same Day Surgery H&P Indication for Procedure/HPI DATE OF PROCEDURE: May 08, 2025 CHIEF COMPLAINT/INDICATIONFOR SURGICAL PROCEDURE: Back and left leg pain PREOP DIAGNOSIS: Lumbar stenosis neurogenic claudication PLANNED PROCEDURE: Operation Date: 05/08/25 08:30 Proposed Procedures p Lumbar Spine Decompression Lumbar Decompression(Not Applicable) - Kai Araiza DO Medications/Allergies* Home Medications ?Medication ?Instructions ?Recorded ?Confirmed ?Type lisinopril 40 mg tablet 40 mg PO DAILY 10/30/19 05/07/25 History lovastatin 20 mg tablet 20 mg PO DAILY 10/30/19 05/07/25 History omeprazole 20 mg capsule,delayed 20 mg PO DAILY 10/30/19 05/07/25 History release aspirin 81 mg tablet,delayed 81 mg PO .COMPLEX 11/21/19 05/07/25 History release (Aspir-) tamsulosin 0.4 mg capsule (Flomax) 0.8 mg PO DAILY 07/19/20 05/07/25 History alprazolam 0.25 mg tablet (Xanax) 0.125 mg PO TID PRN Anxiety 01/05/22 05/07/25 History hydrocodone 5 mg-acetaminophen 325 1 tab PO DAILY 05/07/25 05/07/25 History mg tablet Allergies/Adverse Reactions Allergy/AdvReac Type Severity Reaction Status Date / Time Penicillins Allergy Unknown Verified 05/07/25 12:30 Current Medications: Generic Name Dose Route Start Last Admin Trade Name Freq PRN Reason Stop Dose Admin Sodium Chloride 1,000 mls @ 30 mls/hr 05/08/25 07:15 05/08/25 07:43 Sodium Chloride 0.9% IV 05/09/25 07:14 30 mls/hr .Q24H MONSERRAT Administration Pertinent History/Comorbid Conditions* Medical History (Updated 03/05/25 @ 11:07 by Kai Araiza DO) HTN (hypertension) Hyperlipemia, mixed Erectile dysfunction Elevated PSA Hypogonadism BPH loc w urin obs/LUTS AAA (abdominal aortic aneurysm) without rupture Surgical History (Updated 07/19/20 @ 11:44 by Leigh Ann Azar APRN) Hx of cervical spine surgery Family History (Updated 11/21/19 @ 10:22 by Taniya Gallegos RN) Mother, AT AGE 87 CAD (coronary artery disease) Mother Heart attack Mother Social History Smoking and tobacco/nicotine status: never used tobacco/nicotine Alcohol intake: never Substance/Drug Use: never Adopted: No Caregiver/support person: No Lives independently: No Household members: spouse Marital status: Current occupational status: employed Pertinent Exam Findings alert, oriented x 3 and procedure specific exam findings Recommendations Risks and benefits of procedure reviewed Surgery/Procedure today Coding Level of Care Code Acute Code for [facility]
[2025-05-08] MEDS: lidocaine-epi 1% 20 mL INJ INJECTION (08:47)
--- NOTE | 2025-05-08 09:46 | XR_ITS ---
WS: [id number] Lumbar spine, C-arm fluoroscopy views, 05/08/2025 Clinical Data: OR PICS Comparison: Lumbar spine, 03/05/2025 Findings: Dr. Araiza performed a lumbar decompression. XR/XR lumbar spine 2-3V* [id number] Impression: Lumbar decompression.
--- NOTE | 2025-05-08 09:59 | P.OP_ITS ---
Operative Report Date of procedure: May 08, 2025 Pre-op diagnosis: Lumbar stenosis with neurogenic claudication Post-op diagnosis: same Procedure done: 1. L3/4 laminectomy with partial facetectomy 2. L4/5 laminectomy and partial facetectomy Surgeon: Kai Araiza DO Estimated blood loss (mL): 10 Procedure: 1. L3/4 laminectomy with partial facetectomy 2. L4/5 laminectomy and partial facetectomy Patient is brought to the operative suite. After undergoing anesthesia they are placed in the prone position. All areas of impingement are well padded. Patient is then prepped and draped in the normal sterile fashion. A skin incision is made over the L3/4 level. This is confirmed under c-arm guidance. A series of dilators are passed and the tubular retractor is docked on the L3 lamina. A bovie is used to clear the soft tissue off the lamina and the L 3/4 facet joint. A high speed michelle is then used to perform the laminectomy and take down the medial aspect of the L 3/4 facet joint. A kerrison rongeure was then used to take down the remaining lamina and smooth the edge of the laminectomy up to the point where the ligamentum flavum attaches. Attention was then brought to the medial aspect of the facet joint. The remaining medial aspect of the superior and inferior aspect of the facet joint were taken down with the kerrison from the pedicle of L 3 to L 4. The facet joint had significant hypertrophy. Attention was then brought to the Ligamentum Flavum. The ligament was taken down from the lamina of L3 to L4 and out medially to the remaining facet joint. The ligament was thick. The dura was then exposed. The dura was in good repair. The L3 nerve was then traced with a curette out the L 3/4 foramen and found to be adequately decompressed. The L4 nerve was traced with a curette around the L4 pedicle. The lateral recess was opened with a kerrison helping to further decompress the L4 nerve. Wound is then irrigated copiously with saline and surgiflo is used to stop any bleeding. The tubular retractor is removed A skin incision is made over the L4/5 level. This is confirmed under c-arm guidance. A series of dilators are passed and the tubular retractor is docked on the L4 lamina. A bovie is used to clear the soft tissue off the lamina and t he L/5 facet joint. A high speed michelle is then used to perform the laminectomy and take down the medial aspect of the L4/5 facet joint. A kerrison rongeure was then used to take down the remaining lamina and smooth the edge of the laminectomy up to the point where the ligamentum flavum attaches. Attention was then brought to the medial aspect of the facet joint. The remaining medial aspect of the superior and inferior aspect of the facet joint were taken down with the kerrison from the pedicle of L4 to L 5. The facet joint had significant hypertrophy. Attention was then brought to the Ligamentum Flavum. The ligament was taken down from the lamina of L4 to L5 and out medially to the remaining facet joint. The ligament was thick. The dura was then exposed. The dura was in good repair. The L4 nerve was then traced with a curette out the L4/5 foramen and found to be adequately decompressed. The L5 nerve was traced with a curette around the L5 pedicle. The lateral recess was opened with a kerrison helping to further decompress the L5 nerve. Wound is then irrigated copiously with saline and surgiflo is used to stop any bleeding. The tubular retractor is removed and the wound is closed with vicryl and monocryl suture. Steri strips were applied. A sterile dressing is then placed. Patient was then placed in the supine position and transferred to the PACU in stable condition.
--- NOTE | 2025-05-08 10:17 | SUR.PHASEI ---
09:56 RECEIVED PT FROM OR STAFF. AIRWAY PATENT. VENTILATING WELL WITH GOOD CHEST RISE AND FALL. NSR ON MONITOR. WARM BLANKETS APPLIED. 10:10 AIRWAY REMOVED , AIRWAY CLEAR. PT RESPONDS TO VOICE. IV AT KVO. 10:15 PT DENIES BACK PAIN. ROM AND SENSATION ALL 4 EXTREMITIES. STATES MILD CHEST PAIN. Dr ANDRADE AT BEDSIDE TO EVALUATE PT. NSR ON MONITOR.
--- NOTE | 2025-05-08 10:32 | SUR.PHASEI ---
10:30 PT PLACED ON NASAL CANNULA. DENIES CHEST PAIN AT THIS TIME. ENCOURAGED TO TAKE DEEP BREATHS AND COUGH. A+O X 3.
--- NOTE | 2025-05-08 10:56 | SUR.PHASEI ---
10:40 PT RE-EVALUATED BY Dixie.TRANSFERED TO OPS.
--- NOTE | 2025-05-08 11:19 | ANE.PACU2 ---
Inpatient post-anesthesia follow up: Airway intact: Yes Vital signs: Temperature 96.9 F Pulse Rate 66 Respiratory Rate 18 Blood Pressure 132/82 Pulse Oximetry 94 Oxygen Delivery Me thod Room Air Oxygen Flow Rate 2 Fraction of Inspir ed Oxygen Hydration adequate: Yes Nausea and vomiting: No Pain level: 1 Mental status: Baseline
== END 2025-05-08 11:19 | disposition home or self-care (01) ==
PROVIDERS: PCP Family Medicine; Visit Provider Orthopaedic Surgery
PROC: (CPT 63005; principal; 2025-05-08 08:10)
DX: M48.062 Spinal stenosis, lumbar region with neurogenic claudication (principal); Z79.82 Long term (current) use of aspirin; K21.9 Gastro-esophageal reflux disease without esophagitis; I10 Essential (primary) hypertension; E78.2 Mixed hyperlipidemia; I71.40 Abdominal aortic aneurysm, without rupture, unspecified
CPT/HCPCS: 63047; 63048; 72100; 76000; 86850; 86900; J1100; J2405; J2704; J3010; J3490; J7030; J9999

== ENCOUNTER → 2025-05-14 13:49 | Outpatient (BNVA) | payer OTHER, MEDICAID, SELFPAY | PROVIDERS: PCP Family Medicine; Visit Provider Orthopaedic Surgery | DX: Z98.890 Other specified postprocedural states (principal) | CPT/HCPCS: 99024 ==

== ENCOUNTER 2025-05-18 19:07 | Emergency (ER) | payer OTHER, MEDICAID, SELFPAY ==
--- OUTSIDE RECORDS SUMMARY | 2023-12-24 12:00 | XMS_ITS ---
Author Organization [facility] Address [address] [place] [address] Care Team Providers Care Armhole Sewer Name Role Phone TONI THOMAS Unavailable [phone] REASON FOR VISIT BPH Encounters Encounter Location Date Provider Diagnosis [facility] [address] [facility] [place] [address] 12/24/2023 TONI THOMAS Plan Of Treatment No Information Progress Notes * José LUDOB:[birth year] (75 yo M)Acc No.[id number]:12/24/2023 Progress Notes Patient: José CAMPA Provider: West THOMAS MD :1950 A ge:73 Y S ex:Male Date:12/24/2023 Address: [address] [place], [place] [id number] Subjective: * Chief Complaints: * 1 . BPH. * Medical History: Objective: * Vitals: Assessment: Plan: * Treatment: * Billing Information: * Visit Code: * Procedure Codes: * Electronic signature of AUST IN MD MARTHA on 05/18/2025 at 02:02 PM CDT Sign off status: Pending * Provider: West THOMAS MD Date: 12/24/2023 Generated for Seai ng/Fasheritag/eTransmitting on: 05/18/2025 02:02 PM CDT
--- OUTSIDE RECORDS SUMMARY | 2025-05-13 17:04 | XMS_ITS | Encounter Summary ---
Author Organization [facility] Address [address] [place] [address] Care Team Providers Care Brick Chimney Supervisor Name Role Phone Nathalie Vieira Primary Care Provider Reason for Visit * Reason Comments Urinary Retention Encounter Details Date Type Department Care Team (Late st Contact Info) Description 05/13/2025 5:04 PM CDT - 05/13/2025 5:38 PM CDT Emergency [facility] Emergency Medicine [address] [facility] [address] [place] [address] Atilio Harris DO [address] [facility] [address] [place] [address] Discharge Disposition: Left without being seen Social History Tobacco Use Types Packs/Day Years Used Date Smoking Tobacco: Never Passive Smoke Exposure: Never Smokeless Tobacco: Former Chew Alcohol Use Standard Drinks/Week Comments No 0 (1 standard drink = 0.6 oz pur e alcohol) Financial Resource Strain Answer Date R ecorded How hard is it for you to pa y for the very basics like food, housing, medical care, and heating? Not hard at all 06/14/2022 Food Insecurity Answer Date Recorded In the past 12 months, have you worried that your food would run out before you had money to buy more? Never true 06/14/2022 In the past 12 months, did y ou run out of food and didn't have money to buy more? Never true 06/14/2022 Transportation Needs Answer Date Record ed In the past 12 months, has l ack of transportation kept you from medical appointments or from getting medications? No 06/14/2022 Lack of Transportation (Non-Medical) Not on file 06/14/2022 Feeling Safe Answer Date Recorded Are you in a relationship wi th someone who hurts you emotionally and/or physically? 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 Gender Identity Not on file Sexual Orientation Not on file documented as of this encounter Last Filed Vital Signs Vital Sign Reading Time Taken Comments Blood Pressure 147/95 05/13/2025 5:30 PM CDT Pulse 91 05/13/2025 5:30 PM CDT Temperature 37.2 C (99 F) 05/13/2025 4:25 PM CDT Respiratory Rate 16 05/13/2025 5:08 PM CDT Oxygen Saturation 97% 05/13/2025 5:30 PM CDT Inhaled Oxygen Concentration - - Weight 102.8 kg (226 lb 9.6 oz) 05/13/2025 4:25 PM CDT Height 180.3 cm (5' 11 ) 05/13/2025 4:25 PM CDT Body Mass Index 31.6 05/13/2025 4:25 PM CDT documented in this encounter Medications at Time of Discharge finasteride (PROSCAR) 5 mg tabletIndications:B enign prostatic hyperplasia with nocturia Take 1 Tablet (5 mg) by mouth daily. 30 Tablet 3 04/30/2025 lidocaine (LIDODERM) 5 % Adhesive Patch, MedicatedIndication s:Chronic midline low back pain with bilateral sciatica Apply 1 Patch to affected area every 24 hours. 30 Patch 2 04/30/2025 HYDROcodone-acetami nophen (NORCO) 5-325 mg tabletIndications:C hronic right-sided low back pain without sciatica Take 1 Tablet by mouth every 6 hours as needed for Pain, Moderate. Max Daily Amount: 4 Tablets 30 Tablet 04/20/2025 ALPRAZolam (XANAX) 0.25 mg tabletIndications:G eneralized anxiety disorder TAKE ONE TABLET BY MOUTH one time DAILY NEEDED FOR ANXIETY OR insomnia. 30 Tablet 2 03/04/2025 omeprazole (PriLOSEC) 40 mg Capsule, Delayed Release(E.C.)Indica tions:Gastroesophag eal reflux disease without esophagitis TAKE ONE CAPSULE BY MOUTH DAILY. 100 Capsule 1 02/26/2025 tamsulosin (FLOMAX) 0.4 mg capsuleIndications: Benign prostatic hyperplasia without lower urinary tract symptoms Take 2 Capsules (0.8 mg) by mouth daily. 180 Capsule 3 08/07/2024 lovastatin (MEVACOR) 20 mg tabletIndications:M ixed hyperlipidemia Take 1 Tablet (20 mg) by mouth daily with supper. 90 Tablet 4 08/07/2024 lisinopriL (PRINIVIL) 40 mg tabletIndications:E ssential hypertension Take 1 Tablet (40 mg) by mouth daily. 100 Tablet 3 08/07/2024 ALPRAZolam (XANAX) 0.5 mg tabletIndications:A nxiety,Primary insomnia TAKE 1 TABLET BY MOUTH 1 TIME DAILY NEEDED FOR ANXIETY OR INSOMNIA 30 Tablet 01/03/2024 arginine/B12/folic acid/B6 (L-ARGININE [employer] ORAL) Take 1 Capsule by mouth daily. fluticasone propionate (FLONASE) 50 mcg/spray [place], Suspension nasal inhalerIndications: Fluid collection of middle ear Administer 2 Sprays in each nostril 2 times daily. 16 Gram 3 09/06/2023 nitroglycerin (NITROSTAT) 0.4 mg Tablet, SublingualIndicatio ns:Angina at rest Place 1 Tablet (0.4 mg) under tongue every 5 minutes as needed for Chest Pain. 28 Tablet 1 06/01/2023 ibuprofen (MOTRIN) 600 mg tabletIndications:F ever in other diseases Take 1 Tablet (600 mg) by mouth every 6 hours as needed for Pain, Mild. 90 Tablet 05/23/2023 documented as of this encounter ED Notes * Francoise Liu, CHANA - 05/13/2025 5:40 PM CDT Patient stating he is going to leave and does not want to wait any longer to be seen. Explained to patient that the physician was in a patient room but would be in shortly. Patient declined to wait for himself to be seen. Patient left * Diane Lozano RN - 05/13/2025 4:36 PM CDT Patient presents to the emergency department via private vehicle for urinary retention. Patient states over the last two days, he has had difficulty passing urine. Patient states he does use Flomax, but states it does not seem to be as effective since his procedure. Reports he had a nerve decompression of his L3 and L5 last Sunday. Patient denies pain currently. Patient is able to urinate small amounts at a time, but states he feels like he is unable to empty his bladder. Vital signs as documented. documented in this encounter Plan of Treatment Upcoming Encounters Date Type Department Care Team (Late st Contact Info) Description 06/16/2025 8:30 AM CDT Office Visit [facility] Urology [place] [address] [place] [address] Pamela Skelton NP [address] [place] [address] documented as of this encounter Procedures Procedure Name Priority Date/Time Associated Diagnosis Comments URINALYSIS W/REFLEX MICROSCOPIC Stat 05/13/2025 4:01 PM CDT documented in this encounter Results * (ABNORMAL) URINALYSIS WITH REFLEX MICROSCOPIC (05/13/2025 4:01 PM CDT) COLOR UA Yellow Pale to Dark Yellow 05/13/2025 4:08 PM CDT [facility] CLARITY UA Clear Clear 05/13/2025 4:08 PM CDT [facility] SPECIFIC GRAVITY UA 1.020 1.003 - 1.035 05/13/2025 4:08 PM CDT [facility] PH UA 6.5 5.0 - 8.0 05/13/2025 4:08 PM CDT [facility] LEUKOCYTE ESTERASE UA Trace(A) Negative 05/13/2025 4:08 PM CDT [facility] NITRITE UA Negative Negative 05/13/2025 4:08 PM CDT [facility] PROTEIN UA Negative Negative 05/13/2025 4:08 PM CDT [facility] GLUCOSE UA Negative Negative 05/13/2025 4:08 PM CDT [facility] KETONES UA Negative Negative 05/13/2025 4:08 PM CDT [facility] UROBILINOGEN UA 0.2 <2.0 mg/dL 4:08 PM CDT [facility] BILIRUBIN UA Negative Negative 05/13/2025 4:08 PM CDT [facility] BLOOD UA Negative Negative 05/13/2025 4:08 PM CDT [facility] Urine URINE SPECIMEN OBTAINED BY CLEAN CATCH PROCEDURE / Unknown Collection / Unknown 05/13/2025 4:01 PM CDT 05/13/2025 4:05 PM CDT us Atilio Harris DO URINE ORDERABLES Final Re sult [facility] CLIA # [id number] [address] [place] [id number] documented in this encounter Visit Diagnoses Not on filedocumented in this encounter Care Teams Brick Chimney Supervisor Relationship Specialty Start Date End Date Nathalie Vieira DO [address] [place] [address] PCP - General Family Practice 06/30/19 documented as of this encounter
--- OUTSIDE RECORDS SUMMARY | 2025-05-13 17:20 | XMS_ITS | Encounter Summary ---
Author Organization [facility] Address [address] [place] [address] Care Team Providers Care Aircraft Powerplant Repairer Name Role Phone Nathalie Vieira Primary Care Provider [phone] Reason for Referral * Eval and Treat (5-7 Days) - Closed Specialty Diagnoses / Procedures Referred By Andrea gandhi Referred To Contact Urology Diagnoses Urine retention Benign prostatic hyperplasia with urinary obstruction Urinary catheter in place Procedures NC OFFICE/OUTPATIENT ESTABLISHED MOD MDM 30 MIN NC OFFICE/OUTPATIENT NEW MODERATE MDM 45 MINUTES Dominique Jasso FNP [address] [address] Phone: tel: fax: [facility] Urology [address] [address] Phone: tel: fax: Referral ID Status Reason Start Date Expiration Date Visits Re quested Visits Authorized [id number] Closed 05/13/2025 05/13/2026 1 1 Reason for Visit * Reason Comments Urinary Retention Encounter Details Date Type Department Care Team (Late st Contact Info) Description 05/13/2025 5:20 PM CDT Office Visit [facility] Family Medicine [place] [address] [address] Dominique Jasso FNP [address] [address] Urine retention (Primary Dx); Benign prostatic hyperplasia with urinary obstruction; Urinary catheter in place Social History Tobacco Use Types Packs/Day Years Used Date Smoking Tobacco: Never Passive Smoke Exposure: Never Smokeless Tobacco: Former Chew Tobacco Cessation:Counseling Given: No Alcohol Use Standard Drinks/Week Comments No 0 [...] on file 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 Gender Identity Not on file Sexual Orientation Not on file documented as of this encounter Last Filed Vital Signs Vital Sign Reading Time Taken Comments Blood Pressure 136/83 05/13/2025 5:45 PM CDT Pulse 91 05/13/2025 5:45 PM CDT Temperature 37.3 C (99.1 F) 05/13/2025 5:45 PM CDT Respiratory Rate 20 05/13/2025 5:45 PM CDT Oxygen Saturation 100% 05/13/2025 5:45 PM CDT Inhaled Oxygen Concentration - - Weight 103.9 kg (229 lb) 05/13/2025 5:45 PM CDT Height 180.3 cm (5' 11 ) 05/13/2025 5:45 PM CDT Body Mass Index 31.94 05/13/2025 5:45 PM CDT documented in this encounter Patient Instructions * Attachments The following attachments cannot be sent through Care Everywhere. * Urinary Retention (Kosovan) documented in this encounter Progress Notes * Dominique Jasso, ENAMEL SPRAYER - 05/13/2025 5:59 PM CDT Images from the original note were not included. Chief Complaint Patient presents with Urinary Retention History of Present Illness The patient is a 75-year-old male who presents for a possible bladder infection. He reports an ongoing issue of urinary retention, which was particularly severe last night. He experienced difficulty in urinating, with only a few drops being expelled. He describes a sensation of bladder fullness but does not experience any burning during urination. He has not consulted a urologist for this issue. He has not been on antibiotics for any bladder or kidney infections. He has not undergone any bladder surgery in the past. He has consumed minimal water today. He has an enlarged prostate and is currently on Flomax, with no missed doses. He has not had any urinary tract infections. He also mentions a nerve decompression at the second lumbar level, which he believes is affecting his overall health. He underwent a nerve decompression surgery on his back, which did not help him. He is currently experiencing back pain, which he attributes to a recent incision. PAST SURGICAL HISTORY: Nerve decompression surgery at the second lumbar level. Review of Systems Constitutional: Negative. HENT: Negative. Eyes: Negative. Respiratory: Negative. Cardiovascular: Negative. Gastrointestinal: Negative. Genitourinary: Negative. Urine retention Musculoskeletal: Negative. Skin: Negative. Neurological: Negative. Endo/Heme/Allergies: Negative. Psychiatric/Behavioral: Negative. BP 136/83 (BP Location: Left arm, Patient Position (BP): Sitting, BP Cuff Size: Adult) Pulse 91 Temp 99.1 ??F (37.3 ??C) (Temporal) Resp 20 Ht 5' 11 (1.803 m) Wt 103.9 kg (229 lb) SpO2 100% BMI 31.94 kg/m?? Physical Exam Genitourinary: Catheter inserted into the bladder with immediate drainage of urine. Urine is dark with a little blood. Physical Exam Vitals and nursing note reviewed. Constitutional: General: He is not in acute distress. Appearance: He is well-developed. HENT: Head: Normocephalic and atraumatic. Right Ear: External ear normal. Left Ear: External ear normal. Nose: Nose normal. Eyes: Conjunctiva/sclera: Conjunctivae normal. Cardiovascular: Rate and Rhythm: Normal rate and regular rhythm. Heart sounds: Normal heart sounds. Pulmonary: Effort: Pulmonary effort is normal. Breath sounds: Normal breath sounds. Musculoskeletal: General: Normal range of motion. Cervical back: Normal range of motion. Neurological: Mental Status: He is alert and oriented to person, place, and time. Psychiatric: Behavior: Behavior normal. Thought Content: Thought content normal. Judgment: Judgment normal. Results Labs - Urine test: Trace white blood cells, no nitrites ntains abnormal data URINALYSIS WITH REFLEX MICROSCOPIC Order: [id number] Status: Final result Test Result Released: No (scheduled for 05/13/2025 5:08 PM) 0 Result Notes Component Ref Range & Units (hover) 16:01 (05/13/25) 9 mo ago (08/07/24) 9 mo ago (08/07/24) 1 yr ago (05/24/23) COLOR UA Yellow YELLOW R Yellow Yellow CLARITY UA Clear CLEAR R Clear R Clear SPECIFIC GRAVITY UA 1.020 1.022 R 1.020 R 1.020 R PH UA 6.5 7.5 7.0 5.5 LEUKOCYTE ESTERASE UA Trace Abnormal TRACE Abnormal R 1+ Abnormal Trace Abnormal NITRITE UA Negative NEGATIVE R Negative Negative PROTEIN UA Negative NEGATIVE R Negative 1+ Abnormal GLUCOSE UA Negative NEGATIVE R Negative R Negative R KETONES UA Negative NEGATIVE R Negative Negative UROBILINOGEN UA 0.2 0.2 2.0 Abnormal BILIRUBIN UA Negative NEGATIVE R Negative 1+ Abnormal BLOOD UA Negative NEGATIVE R Negative Negative Resulting Agency [facility] ICD-10-CM ICD-9-CM 1. Urine retention R33.9 788.20 URINE CULTURE URINARY CATHETER INDWELLING AMB REFERRAL TO UROLOGY ciprofloxacin HCl (Cipro) 500 mg tablet URINE CULTURE 2. Benign prostatic hyperplasia with urinary obstruction N40.1 600.01 AMB REFERRAL TO UROLOGY N13.8 599.69 ciprofloxacin HCl (Cipro) 500 mg tablet 3. Urinary catheter in place Z96.0 V45.89 AMB REFERRAL TO UROLOGY Assessment & Plan 1. Bladder infection: - Symptoms include difficulty urinating, frequent urination without feeling empty, and significant urine retention (1 liter). - Physical exam findings include trace white blood cells in the urine and no nitrites. A catheter was inserted to drain the urine, providing immediate relief. - A urine culture was ordered to confirm the presence of an infection. Antibiotics were prescribed prophylactically due to the likelihood of bacterial growth from urine retention. - Antibiotics were sent to the pharmacy to be picked up in the morning and started immediately. Flomax was continued to help relax the ureter and shrink the prostate. A referral to a urologist was made for further evaluation and management. Follow-up: The urology office will call directly to schedule an appointment within 7 days. PROCEDURE Procedure: Bladder catheter insertion - Procedural Discussion: Discussed the need for catheter insertion due to urine retention. Explained the procedure, including insertion through the penis, balloon inflation to keep it in place, and attachment to a leg bag for daytime use and a larger bag for nighttime use. Addressed discomfort associated with the procedure and the necessity of the catheter until the patient sees a urologist. - Site Preparation: Cleaned the skin with iodine. - Technique: Inserted the catheter through the penis, inflated the balloon to keep it in place, andattached the catheter to a leg bag for daytime use and a larger bag for nighttime use. - Post-Procedural Discussion: Explained how to switch between the leg bag and the larger nighttime bag, and how to empty the bags. Advised the patient to continue taking Flomax to help relax the ureter and shrink the prostate. Discussed the potential for urine culture results and the initiation of a ntibiotics. 280 cc drained from bladder Dominique BOWIE This note was automatically generated by a [employer] technology ([employer]), reviewed, edited, and finalized by JOSE Hwang. The author of this note, patient (or authorized equal opportunity representative), and all other persons present consent to the audio recording of this visit for charting documentation purposes. documented in this encounter Plan of Treatment Upcoming Encounters Date Type Department Care Team (Late st Contact Info) Description 06/16/2025 8:30 AM CDT Office Visit [facility] Urology [place] [address] [facility] [address] [place] [address] Pamela Skelton NP [address] [facility] [address] [place] [address] Scheduled Referrals Name Type Priority Associated Diagnoses Orde r Schedule AMB REFERRAL TO UROLOGY Outpatient Referral Routine Urine retention Benign prostatic hyperplasia with urinary obstruction Urinary catheter in place Ordered: 05/13/2025 documented as of this encounter Procedures Procedure Name Priority Date/Time Associated Diagnosis Comments URINE CULTURE Routine 05/13/2025 6:00 PM CDT Urine retention documented in this encounter Results * URINE CULTURE (05/13/2025 6:00 PM CDT) URINE CULTURE SEE NOTE [facility] Comment: CULTURE, URINE, ROUTINE Micro Number: [id number] Test Status: Final Specimen Source: Urine, indwelling (kerr) catheter Specimen Quality: Adequate Result: No Growth Test Performed at: [facility] [address] [place] [address] Sherrie Liz MD Urine (Urine, indwelling (Kerr) catheter) 05/13/2025 6:00 PM CDT 05/15/2025 3:41 AM CDT Dominique Jasso ENAMEL SPRAYER MICROBIOLOGY - GENERAL O RDERABLES Final Result [facility] [phone] [facility] [address] [place] [address] documented in this encounter Visit Diagnoses Diagnosis Urine retention- Primary Retention of urine, unspecified Benign prostatic hyperplasia with urinary obstruction Urinary catheter in place Other postprocedural status documented in this encounter Care Teams Aircraft Powerplant Repairer Relationship Specialty Start Date End Date Nathalie Vieira DO [address] [place] [id number] PCP - General Family Practice 06/30/19 documented as of this encounter
--- OUTSIDE RECORDS SUMMARY | 2025-05-18 10:00 | XMS_ITS | Encounter Summary ---
Author Organization [facility] Address [address] [place] [address] Care Team Providers Care Meat Inspector Name Role Phone Nathalie Vieira Bethany HINSON Primary Care Provider [phone] Reason for Referral * Outpatient Services (Routine) - Closed Specialty Diagnoses / Procedures Referred By Andrea gandhi Referred To Contact Diagnoses Urinary retention Procedures CYSTOSCOPY Pamela Skelton NP [address] [address] Phone: tel: fax: Referral ID Status Reason Start Date Expiration Date Visits Re quested Visits Authorized [id number] Closed 05/15/2025 08/13/2025 1 1 Reason for Visit * Reason Comments ER f/u urine retention, BPH with urinary obstruction, cath * Outpatient Services (Routine) - Closed Specialty Diagnoses / Procedures Referred By Andrea gandhi Referred To Contact Diagnoses Urinary retention Procedures CYSTOSCOPY Pamela Skelton NP [address] [address] Phone: tel: fax: Referral ID Status Reason Start Date Expiration Date Visits Re quested Visits Authorized [id number] Closed 05/15/2025 08/13/2025 1 1 Encounter Details Date Type Department Care Team (Late st Contact Info) Description 05/18/2025 10:00 AM CDT Office Visit [facility] [place] [address] [address] Pamela Skelton NP [address] [facility] [address] [place] [phone] Gross hematuria (Primary Dx); Urinary retention Social History Tobacco Use Types Packs/Day Years [...] on file Legal Sex Male 12:22 PM HUC OB Gender Identity Not on file Sexual Orientation Not on file documented as of this encounter Progress Notes * Pamela Skelton NP - 05/18/2025 10:00 AM CDT CONSULT/HISTORY & PHYSICAL Patient: José Lu / 75 y.o. / male : 1950 History of Present Illness: José Lu is a 75 y.o. year-old male who is referred by Dominique Jasso F* for evaluation and treatment of urinary retention. Urinary Retention: The patient comes today referred from the emergency room with a kerr catheter, which has been in place for a week. Exacerbating factors include recent non- surgery. Pt reports he had a recent nerve decompression at [place], developed urinary retention following surgery. Reports prior to surgery he was getting up 2-4x per night to void. Was having no trouble voiding during the day. He was started on proscar per PCP, but does not recall that medication They do have a history of previous voiding difficulty, and do not have a history of previous retention. These symptoms are moderate in nature and worsening recently. They have been present for several months. There is not a history of hematuria and is not a history of symptoms of urinary tract infection. Heis currently on cipro for possible UTI, most recent urine culture negative The patient is on BPH medications, flomax. There is not a history of previous prostate surgery in the form of N/A. Past Medical History: Diagnosis Date AAA (abdominal aortic aneurysm) without rupture 05/10/2023 Chronic midline low back pain with bilateral sciatica 10/01/2019 Gastroesophageal reflux disease without esophagitis 10/01/2019 GERD (gastroesophageal reflux disease) HTN (hypertension) Unspecified disorder of lipoid metabolism Past Surgical History: Procedure Laterality Date HX SPINAL SURGERY [place] ESOPHAGOGASTRODUODENOSCOPY TRANSORAL DIAGNOSTIC N/A 07/01/2014 ESOPHAGOGASTRODUODENOSCOPY performed by Ankush Romero MD at [facility] [place] Current Outpatient Medications on File Prior to Visit Medication Sig Dispense Refill ciprofloxacin HCl (Cipro) 500 mg tablet Take 1 Tablet (500 mg) by mouth 2 times daily for 10 days. 20 Tablet 0 finasteride (PROSCAR) 5 mg tablet Take 1 Tablet (5 mg) by mouth daily. 30 Tablet 3 lidocaine (LIDODERM) 5 % Adhesive Patch, Medicated Apply 1 Patch to affected area every 24 hours. 30 Patch 2 HYDROcodone-acetaminophen (NORCO) 5-325 mg tablet Take 1 Tablet by mouth every 6 hours as needed for Pain, Moderate. Max Daily Amount: 4 Tablets 30 Tablet 0 ALPRAZolam (XANAX) 0.25 mg tablet TAKE ONE TABLET BY MOUTH one time DAILY NEEDED FOR ANXIETY OR insomnia. 30 Tablet 2 omeprazole (PriLOSEC) 40 mg Capsule, Delayed Release(E.C.) TAKE ONE CAPSULE BY MOUTH DAILY. 100 Capsule 1 tamsulosin (FLOMAX) 0.4 mg capsule Take 2 Capsules (0.8 mg) by mouth daily. 180 Capsule 3 lovastatin (MEVACOR) 20 mg tablet Take 1 Tablet (20 mg) by mouth daily with supper. 90 Tablet 4 lisinopriL (PRINIVIL) 40 mg tablet Take 1 Tablet (40 mg) by mouth daily. 100 Tablet 3 ALPRAZolam (XANAX) 0.5 mg tablet TAKE 1 TABLET BY MOUTH 1 TIME DAILY NEEDED FOR ANXIETY OR INSOMNIA 30 Tablet 0 arginine/B12/folic acid/B6 (L-ARGININE MEN'S HEALTH ORAL) Take 1 Capsule by mouth daily. fluticasone propionate (FLONASE) 50 mcg/spray [place], Suspension nasal inhaler Administer 2 Sprays in each nostril 2 times daily. 16 Gram 3 nitroglycerin (NITROSTAT) 0.4 mg Tablet, Sublingual Place 1 Tablet (0.4 mg) under tongue every 5 minutes as needed for Chest Pain. (Patient not taking: Reported on 04/30/2025) 28 Tablet 1 ibuprofen (MOTRIN) 600 mg tablet Take 1 Tablet (600 mg) by mouth every 6 hours as needed for Pain, Mild. 90 Tablet 0 No current facility-administered medications on file prior to visit. Allergies Allergen Reactions Penicillins Anaphylaxis Family History Problem Relation Name Age of Onset Colon Cancer Neg Hx Social History Socioeconomic History Marital status: Spouse name: Not on file Number of children: Not on file Years of education: Not on file Highest education level: Not on file Occupational History Not on file Tobacco Use Smoking status: Never Passive exposure: Never Smokeless tobacco: Former Types: Chew Vaping Use Vaping status: Never Used Substance and Sexual Activity Alcohol use: No Drug use: No Sexual activity: Not Currently Partners: Female Other Topics Concern Not on file Social History Narrative Not on file Social Drivers of Health Food Insecurity: No Food Insecurity (06/14/2022) Food Insecurity Worried About Running Out of Food in the Last Year: Never true Ran Out of Food in the Last Year: Never true Transportation Needs: Unknown (06/14/2022) Transportation Needs Lack of Transportation (Medical): No Lack of Transportation (Non-Medical): Not on file Feeling Safe: Not At Risk (05/13/2025) Feeling Safe Patient has indicated abuse: : No Housing Stability: Not on file Review of Systems: See nurse's note for complete ROS, which I reviewed. PHYSICAL EXAMINATION: General Appearance: awake, alert, oriented, answers questions appropriately. Cardiovascular: rhythm is normal Respiratory: normal respiratory effort without intercostal retractions LABS: Chemistry: Lab Results Component Value Date NA 140 08/07/2024 K 4.3 08/07/2024 CL 105 08/07/2024 CO2 26 08/07/2024 CA 9.5 08/07/2024 BUN 21 08/07/2024 CREAT 1.12 03/17/2025 GLUCOSE 92 08/07/2024 ANIONGAP 11 06/28/2020 BCRATIO SEE NOTE: 08/07/2024 Hematology Lab Results Component Value Date WBC 5.8 08/07/2024 HGB 14.3 08/07/2024 HGB 13.9 (L) 06/28/2020 HCT 43.1 08/07/2024 HCT 43.0 06/28/2020 PLT 164 08/07/2024 MCV 88.9 08/07/2024 MCV 88.8 06/28/2020 URINALYSIS: Lab Results Component Value Date/Time PHUA 6.5 05/13/2025 04:01 PM SGUR 1.020 05/13/2025 04:01 PM URINELEUKOC Trace (A) 05/13/2025 04:01 PM NITRITEUA Negative 05/13/2025 04:01 PM KETONEURINE Negative 05/13/2025 04:01 PM PROTEINUA Negative 05/13/2025 04:01 PM GLUUA Negative 05/13/2025 04:01 PM BLOODUA Negative 05/13/2025 04:01 PM WBCU 0-5 08/07/2024 12:31 PM RBCUA NONE SEEN 08/07/2024 12:31 PM BACTERIAUA NONE SEEN 08/07/2024 12:31 PM UREPITHELIAL 0-5 08/07/2024 12:31 PM Coags: No results for input(s): PT , INR , APTT in the last 72 hours. PSA: No results found for: PSA , PSADIAG , PSASCRN , PSAFREE TESTOSTERONE: No results found for: TESTOSTTO , FREETESTOSTE , TESTOSTFRE IMAGING: Nothing pertinent recently Assessment: Urinary retention BPH Plan: Pt previously had trouble with weak stream overnight prior to experiencing urinary retention, had back surgery about 2 weeks ago Will attempt FPV today, if able to void, will continue flomax 0.8 mg daily, start proscar previously prescribed per PCP Pt left for a few hours, drank water, returned to office for PVR. He was only able to void a few drops. 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 This provider easily passed 18 fr coude catheter with over 600 ml return of urine small amount of blood then clear urine, pts pain relieved Will plan to continue flomax 0.8 mg daily, start proscar, follow up in 1 month for TOV >45 min spent with pt educating, counseling and placing kerr Signed: Pamela Skelton NP 05/18/2025, 10:00 AM I appreciate the referral from Dominique Jasso F*. * Sandy Lizarraga - 05/18/2025 9:46 AM CDT TOBACCO COUNSELING He is not a tobacco/nicotine user. Pt here for catheter removal. Balloon deflated, cath removed intact without difficulty.Patient tolerated procedure well. Filled bladder 100 ml of sterile water and patient informed he was in discomfort and needed to urinate. Patient tried to use the restroom. Patient could not go. NB stated to havePatient drink water and try to use to restroom within an hour or two. Patient will be back up here.Patient stated around 12:40 To talk to Patients . documented in this encounter Plan of Treatment Upcoming Encounters Date Type Department Care Team (Late st Contact Info) Description 06/16/2025 8:30 AM CDT Office Visit [facility] [place] [address] [address] [facility] [address] [place] [address] Pamela Skelton NP [address] [address] Scheduled Orders Name Type Priority Associated Diagnoses Orde r Schedule CYSTOSCOPY Procedure Routine Urinary retention 1 Occurrences starting 05/15/2025 until 05/15/2026 documented as of this encounter Visit Diagnoses Diagnosis Gross hematuria- Primary Urinary retention Retention of urine, unspecified documented in this encounter Administered Medications Inactive Administered Medications - up to 3 most recent administrations Medication Order MAR Action Action Date Dose Rate Site lidocaine 2% jelly 6 mL 6 mL, Urethral, ONE TIME ONLY, 1 dose, On Sun05/18/25 at 1400, RoutineIndications:Gross hematuria,Urinary retention Given 05/18/2025 1:56 PM CDT 6 mL documented in this encounter Care Teams Meat Inspector Relationship Specialty Start Date End Date Nathalie Vieira DO [address] [place] [address] PCP - General Family Practice 06/30/19 documented as of this encounter
[2025-05-18 19:09] VITALS: BP 138/76; PULSE 92; RESP 15; TEMP 36.8; O2SAT 95; BMI 31.4
--- OUTSIDE RECORDS SUMMARY | 2025-05-18 19:11 | XMS_ITS | Clinical Summary ---
Author Organization [facility] Address [address] [place] [address] Care Team Providers Care Dry Cans Back Tender Name Role Phone Nathalie Vieira Primary Care Provider Allergies Active Allergy Reactions Criticality Noted Date Comments Penicillins Anaphylaxis High 02/10/2014 Medications FLAXSEED OIL (OMEGA 3 ORAL) Take by mouth daily. Active nitroglycerin (NITROSTAT) 0.4 mg Tablet, SublingualIndicati ons:Angina at rest Place 1 Tablet (0.4 mg) under tongue every 5 minutes as needed for Chest Pain. 28 Tablet 1 9 Active lisinopriL (PRINIVIL) 40 mg tabletIndications: Essential hypertension Take 1 Tablet (40 mg) by mouth daily. 90 Tablet 3 0 Active omeprazole (PriLOSEC) 20 mg Capsule, Delayed Release(E.C.)Indic ations:Gastroesoph ageal reflux disease without esophagitis Take 1 Capsule (20 mg) by mouth daily. 90 Capsule 3 0 Active neomycin-polymyxin B-hydrocortisone (CORTISPORIN OTIC) 3.5-10,000-1 mg/mL-unit/mL-% otic suspensionIndicati ons:Other infective acute otitis externa of right ear Administer 3 Drops in left ear 4 times daily. 10 mL 0 Active ALPRAZolam (XANAX) 0.25 mg tabletIndications: Anxiety,Primary insomnia Take 1 Tablet (0.25 mg) by mouth 1 time daily as needed for Anxiety or Insomnia. Mtn Crystal Ibarra 30 Tablet 3 1 Active lovastatin (MEVACOR) 20 mg tabletIndications: Mixed hyperlipidemia Take 1 Tablet (20 mg) by mouth daily with supper. 90 Tablet 3 1 Active tamsulosin (FLOMAX) 0.4 mg capsuleIndications :Benign prostatic hyperplasia without lower urinary tract symptoms Take 2 Capsules (0.8 mg) by mouth daily. 180 Capsule 1 1 Active diclofenac potassium (CATAFLAM) 50 mg TabletIndications: Generalized osteoarthrosis, involving multiple sites Take 1 Tablet (50 mg) by mouth 2 times daily. 60 Tablet 5 1 Active Active Problems Problem Noted Date Diagnosed Date Gastroesophageal reflux disease without esophagi tis 10/01/2019 Chronic midline low back pain with bilateral sci atica 10/01/2019 Instability of left knee joint 10/01/2019 Arthritis of knee 10/01/2019 Knee pain 10/01/2019 Family History Medical History Relation Name Comments Colon Cancer Neg Hx Social History Tobacco Use Types Packs/Day Years Used Date Smoking Tobacco: Never Smokeless Tobacco: Never Alcohol Use Standard Drinks/Week Comments No 0 (1 standard drink = 0.6 oz pur e alcohol) Sex and Gender Information Value Date Recorded Sex Assigned at Not on file 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 Gender Identity Not on file Sexual Orientation Not on file Occupation Industry Job Start Date Job End Date Not on file Not on file Not on file Not on file Last Filed Vital Signs Vital Sign Reading Time Taken Comments Blood Pressure 139/70 12/28/2020 9:50 AM CDT Pulse 75 12/28/2020 9:50 AM CDT Temperature 36.6 C (97.9 F) 12/28/2020 9:50 AM CDT Respiratory Rate 18 04/17/2019 12:05 AM CDT Oxygen Saturation 95% 12/28/2020 9:50 AM CDT Inhaled Oxygen Concentration - - Weight 112.5 kg (248 lb) 12/28/2020 9:50 AM CDT Height 180.3 cm (5' 11 ) 12/28/2020 9:50 AM CDT Body Mass Index 34.59 12/28/2020 9:50 AM CDT Plan of Treatment Health Maintenance Due Date Last Done Comments FIT/FOBT Q 1 YEAR (AUTO ORDER) 1970 FLEX SIG/CT COLONOGRAPHY Q 5 YEARS (AUTO ORDER) 1970 DTAP/TDAP/TD VACCINES (1 - Tdap) 1971 PNEUMOCOCCAL VACCINE 50+ YEA RS (1 of 2 - PCV) 1971 COLORECTAL CANCER SCREENING (AUTO ORDER) 1997 COLORECTAL SCREENING 1997 FIT/FOBT Q 1 year 1997 Flex Sig/CT Colonography Q 5 years 1997 ZOSTER VACCINE (1 of 2) 2002 RSV VACCINE (60+ or ) (1 - Risk 60-74 years 1-dose series) 2012 Colorectal Cancer Screening (AUTO ORDER) 07/08/2022 Colorectal Cancer Screening 07/08/2022 FIT-DNA Q 3 years 07/08/2022 07/08/2019 FIT/ DNA Q 3 YEARS (AUTO ORDER) 07/08/2022 9, 07/08/2019 Medicare Ad[place] ([place]) Prev entative Visit/Annual Wellness Visit 09/03/2024 06/28/2020 INFLUENZA VACCINE (#1) 2025 06/28/2020 Procedures Procedure Name Priority Date/Time Associated Diagnosis Comments COLON CANCER SCREEN, STOOL DNA Routine 07/08/2019 2:45 PM FLAG CAR DRIVER Screening for colon cancer from Last 3 Months or Most Recently Relevant to Health Maintenance Results * COLON CANCER SCREEN, STOOL DNA (07/08/2019 2:45 PM FLAG CAR DRIVER) COLOGUARD RESULT Negative Not Applicable [facility] Comment: A negative result indicates a low likelihood that a colorectal cancer (CRC) or an advanced adenoma (adenomatous polyps with more advanced pre-malignant features) is present. The chance that a person with a negative Cologuard test has a colorectal cancer is less than 1 in 1500 (negative predictive value >99.9%) or has an advanced adenoma is less than 5.3% (negative predictive value 94.7%). These data are based on a prospective cross-sectional screening study of 10,000 individuals at average risk for colorectal cancer who were screened with both Cologuard and colonoscopy. (Rosanna Gordon al, N Engl J Med 2014;370(14):0206-7433) COLOGUARD RE-SCREENING RECOMMENDATION: Periodic routine colorectal cancer screening is an important part of preventive healthcare for asymptomatic persons at average risk for colorectal cancer. Following a negative Cologuard result, the British Cancer Society and U.S. Multi-Society Task Force screening guidelines recommend a Cologuard re-screening interval of 3 years. References: British Cancer Society (ACS). Colorectal cancer prevention and early detection. [place], [place]: British Cancer Society; [updated 2015Dec 25]. https://www.cancer.org/cancer/xbvag-zuvuvz-dwvkrk/moojlahvp-wabfgnohw-mitxrte/ac s-rec ommendations.html. Accessed May 03, 2018; Manuel DK, Diaz CR, Zoë RevelesK, Colorectal Cancer Screening: Recommendations for Physicians and Patients from the U.S. Multi-Society Task Force on Colorectal Cancer Screening, Am J Gastroenterology 2017; 112:2403-2828. Test Type: Composite algorithmic analysis of stool DNA-biomarkers with hemoglobin immunoassay. Quantitative values of individual biomarkers are not reportable and are not associated with individual biomarker result reference ranges. Precautions and Limitations: Cologuard is intended for colorectal cancer screening of adults of either sex, 50 years or older, who are at typical average-risk for colorectal cancer. A negative Cologuard test result does not guarantee the absence of colorectal cancer or advanced adenoma (pre-cancer). Patients with a negative Cologuard test result should be advised to continue participating in a colorectal cancer screening program. Cologuard may produce a positive result, even though a colonoscopy may not find colorectal cancer or precancerous polyps. The performance of Cologuard has been established in a cross sectional study (i.e., single point in time). Performance has not been evaluated in adults who have been previously tested with Cologuard or in patients less than 50 years of age. Cologuard has been approved for use by the U.S. FDA. Cologuard performance data in a 10,000 patient pivotal study using colonoscopy as the reference method can be accessed at the following location: www.[employer]/results. Additional description of the Cologuard test process, warnings and precautions can be found at www.cologuardtest.com. Rx Only. Stool STOOL SPECIMEN / Unknown 07/08/2019 2:45 PM FLAG CAR DRIVER 07/09/2019 6:19 PM FLAG CAR DRIVER us Dominique Jasso BUSINESS CONSULT BODY FLUIDS AND STOOLS F inal Result [facility] CLIA # [id number] [address] , [address] [place] [address] from Last 3 Months or Most Recently Relevant to Health Maintenance Insurance [employer] DUAL COMPLETE MCR PPO D-SNP Care Teams Dry Cans Back Tender Relationship Specialty Start Date End Date Nathalie Vieira DO [address] [facility] [place] [address] PCP - General Family Practice 06/30/19
--- OUTSIDE RECORDS SUMMARY | 2025-05-18 19:11 | XMS_ITS | Encounter Summary ---
Author Organization [facility] Address 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 complains of urinary problem for 7 days. If adult patient does not want to be seen, encourage e-visit, nurse visit or at least UA at lab (antibiotic prescribing without further evaluation not generally recommended due to risks of antibiotics and misdiagnosis). Dysuria: yes. Blood in urine: none. Urinary frequency: yes. Urgency: yes. Flank pain: yes. Fever: no . Chills: no. Abnormal vaginal discharge or bleeding: no. Associated symptoms: Nausea, vomiting, diarrhea, etc. no. Does the patient have a chronic indwelling catheter, suprapubic catheter or perform straight caths:no Does the patient have history of recurrent urinary tract infections? no. If yes when was last UTI and with what were they treated? Additional info: Patient states that he is having trouble urinating. He noticed this after his surgery last week. He states that he is up every hour feeling like he needs to urinate a bunch but only dribbles. He complains of urine frequency and urgency. He says he feels like he is full of urine. Noappointments available at the clinic. Advised patient to go to the ER being as this came on after surgery and he is unable to urinate. General instructions to give to patient while awaiting physician response: Increase fluids, 8-10 glasses water daily. May use OTC Pyridium prn. If can't be seen by provider and provider recommends urgent care: [facility] are preferable when needed to help to coordinate care. Click for list of [facility]: [email or web address] Designed by [place] [employer] committee 2019 * Telephone Encounter - Yulia Bruce - 05/13/2025 2:36 PM CDT Copied from [facility] #[id number]. Topic: Symptomatic Care >> May 13, 2025 2:32 PM Yulia Rivera wrote: Has this patient seen any provider (current or former) at the requested clinic in the past? Yes, Select the appropriate age range and symptom Patient has symptoms and is seeking care. Caller Name: Sagar Callback Number: [phone] Call Notes: not able to urinate Age Range/Symptom: Adult 18+ - Urinary & Bladder Infection - can not urinate Does patient have any of the following other urgent symptoms: No urgent symptoms requiring warm call transfer documented in this encounter Plan of Treatment Upcoming Encounters Date Type Department Care Team (Late st Contact Info) Description 06/16/2025 8:30 AM CDT Office Visit [facility] [address] [place] [phone] Pamela Skelton NP [address] [place] [phone] documented as of this encounter Visit Diagnoses Not on filedocumented in this encounter Care Teams Kineseologist Relationship Specialty Start Date End Date Nathalie Vieira DO [address] [place] [address] PCP - General Family Practice 06/30/19 documented as of this encounter
--- OUTSIDE RECORDS SUMMARY | 2025-05-18 19:11 | XMS_ITS | Encounter Summary ---
Author Organization [facility] Address 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 Voiced understanding. Giselle ZAYAS * Telephone Encounter - Giselle Brush RN - 05/18/2025 9:14 AM CDT ----- Message from Dominique Jasso sent at 05/16/2025 7:14 AM CDT ----- Urine culture shows no bacterial growth ----- Message ----- From: Shaq Smith Incoming [facility] Results Sent: 05/15/2025 11:18 PM CDT To: JOSE Beckman documented in this encounter Plan of Treatment Upcoming Encounters Date Type Department Care Team (Late st Contact Info) Description 06/16/2025 8:30 AM CDT Office Visit [facility] [place] [address] [place] [address] Pamela Skelton NP [address] [place] [address] documented as of this encounter Visit Diagnoses Not on filedocumented in this encounter Care Teams Door Tender Relationship Specialty Start Date End Date Nathalie Vieira DO [address] [place] [phone] PCP - General Family Practice 06/30/19 documented as of this encounter
--- OUTSIDE RECORDS SUMMARY | 2025-05-18 19:11 | XMS_ITS | Encounter Summary ---
Author Organization [facility] Address 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 Topic: Medication Request >> May 13, 2025 2:02 PM Nasir Barba wrote: Caller Name: José Lu Callback Number: Telephone Information: Medication (Ask patient/caregiver to spell if possible): does not know the name. Note: All medication prescriptions can be requested using one [facility] Caller is requesting: Medication Question from Patient (not involving new prescription or refill) Call Notes: Caller has question about his medications. States he was prescribed something the otherday that he thinks is supposed to stop his urine flow, but he also thinks he is taking another medication to increase his urine flow. Does not know if he should take these medications together or not, and had a hard time getting through the night last night. Can someone give him a call and provide some insight on this? Is there an encounter open? No documented in this encounter Plan of Treatment Upcoming Encounters Date Type Department Care Team (Late st Contact Info) Description 06/16/2025 8:30 AM CDT Office Visit [facility] [address] [place] [phone] Pamela Skelton NP [address] [place] [phone] documented as of this encounter Visit Diagnoses Not on filedocumented in this encounter Care Teams Manifest Clerk Relationship Specialty Start Date End Date Nathalie Vieira DO [address] [place] [phone] PCP - General Family Practice 06/30/19 documented as of this encounter
--- OUTSIDE RECORDS SUMMARY | 2025-05-18 19:11 | XMS_ITS | Encounter Summary ---
Author Organization [facility] Address [address] [place] [address] Care Team Providers Care Elementary Vocal Music Teacher Name Role Phone Nathalie Vieira DO Primary Care Provider Encounter Details Date Type Department Care Team (Latest Contact Info) Description 10/16/2005 Outpatient Historical [facility] Imaging Services [address] [place] [phone] Monica Garcia MD NO ADDRESS ON FILE LUMBOSACRAL SPONDYLOSIS (Primary Dx) Social History Tobacco Use Types Packs/Day Years Used Date Smoking Tobacco: Never Assessed Sex and Gender Information Value Date Recorded Sex Assigned at Not on file 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
--- OUTSIDE RECORDS SUMMARY | 2025-05-18 19:11 | XMS_ITS | Encounter Summary ---
Author Organization [facility] Address 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 Gender Identity Not on file Sexual Orientation Not on file documented as of this encounter Plan of Treatment Upcoming Encounters Date Type Department Care Team (Late st Contact Info) Description 06/16/2025 8:30 AM CDT Office Visit [facility] [place] [address] [facility] [address] [place] [phone] Pamela Skelton NP [address] [facility] [address] [place] [phone] documented as of this encounter Visit Diagnoses Not on filedocumented in this encounter Care Teams Logging Superintendent Relationship Specialty Start Date End Date Nathalie Vieira DO [address] [place] [phone] PCP - General Family Practice 06/30/19 documented as of this encounter
--- OUTSIDE RECORDS SUMMARY | 2025-05-18 19:11 | XMS_ITS | Encounter Summary ---
Author Organization [facility] Address [address] [place] [address] Care Team Providers Care Sports Manager Name Role Phone Nathalie Vieira DO Primary Care Provider Encounter Details Date Type Department Care Team (Latest Contact Info) Description 10/23/2006 Outpatient Historical [facility] Family Medicine- [place] [address] [place] [address] Mike Schaefer MD NO ADDRESS ON FILE Esophageal Reflux (Primary Dx); Pure Hypercholesterolem; Unspecified Chronic Ischemic Heart Disease Social History Tobacco Use Types Packs/Day Years Used Date Smoking Tobacco: Never Assessed Sex and Gender Information Value Date Recorded Sex Assigned at Not on file 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
--- OUTSIDE RECORDS SUMMARY | 2025-05-18 19:11 | XMS_ITS | Encounter Summary ---
Author Organization [facility] Address 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 She states that they are at the urologist in [place] and they were told that December already sent something in for BPH. Advised that finasteride was sentin by December on April 30. Voiced understanding. Zohra RN * Telephone Encounter - Eusebio Denney - 05/18/2025 1:32 PM CDT Copied from [facility] #[id number]. Topic: Medication Request >> May 18, 2025 1:31 PM Eusebio Gipson wrote: Caller Name: Karlee Lu () Callback Number: [phone] Medication (Ask patient/caregiver to spell if possible):ciprofloxacin HCl (Cipro) 500 mg tablet Note: All medication prescriptions can be requested using one CRM Caller is requesting: Medication Question from Patient (not involving new prescription or refill) Preferred Pharmacy: [id number] - [address] [place] [phone] Call Notes: Caller has question about medication. Patient's states that the patient is currently with urology in [place], [place]. They have informed the patient that something has already been called in for patient's prostate. As far as patient know this is the only medication that was called in, and it's just an antibiotic. Patient's is requesting call back. Is there an encounter open? No documented in this encounter Plan of Treatment Upcoming Encounters Date Type Department Care Team (Late st Contact Info) Description 06/16/2025 8:30 AM CDT Office Visit [facility] [place] [address] [place] [address] Pamela Skelton NP [address] [place] [address] documented as of this encounter Visit Diagnoses Not on filedocumented in this encounter Care Teams Boat Detailer Relationship Specialty Start Date End Date Nathalie Vieira DO [address] [place] [phone] PCP - General Family Practice 06/30/19 documented as of this encounter
--- OUTSIDE RECORDS SUMMARY | 2025-05-18 19:11 | XMS_ITS | Clinical Summary ---
Author Organization [facility] Address [address] [place] [address] Care Team Providers Care Gymnastics Instructor Name Role Phone Nathalie Vieira Primary Care Provider Allergies Active Allergy Reactions Criticality Noted Date Comments Penicillins Anaphylaxis High 02/10/2014 Medications ibuprofen (MOTRIN) 600 mg tabletIndications :Fever in other diseases Take 1 Tablet (600 mg) by mouth every 6 hours as needed for Pain, Mild. 90 Tablet 023 Active nitroglycerin (NITROSTAT) 0.4 mg Tablet, SublingualIndicat ions:Angina at rest Place 1 Tablet (0.4 mg) under tongue every 5 minutes as needed for Chest Pain. 28 Tablet 1 023 Active Additional Information Patient not taking.Reported on 04/30/2025 fluticasone propionate (FLONASE) 50 mcg/spray Norris, Suspension nasal inhalerIndication s:Fluid collection of middle ear Administer 2 Sprays in each nostril 2 times daily. 16 Gram 3 024 Active arginine/B12/foli c acid/B6 (L-ARGININE MEN'S HEALTH ORAL) Take 1 Capsule by mouth daily. Active ALPRAZolam (XANAX) 0.5 mg tabletIndications :Anxiety,Primary insomnia TAKE 1 TABLET BY MOUTH 1 TIME DAILY NEEDED FOR ANXIETY OR INSOMNIA 30 Tablet 024 Active tamsulosin (FLOMAX) 0.4 mg capsuleIndication s:Benign prostatic hyperplasia without lower urinary tract symptoms Take 2 Capsules (0.8 mg) by mouth daily. 180 Capsule 3 024 Active lovastatin (MEVACOR) 20 mg tabletIndications :Mixed hyperlipidemia Take 1 Tablet (20 mg) by mouth daily with supper. 90 Tablet 4 024 Active lisinopriL (PRINIVIL) 40 mg tabletIndications :Essential hypertension Take 1 Tablet (40 mg) by mouth daily. 100 Tablet 3 024 Active omeprazole (PriLOSEC) 40 mg Capsule, Delayed Release(E.C.)Lizabeth cations:Gastroeso phageal reflux disease without esophagitis TAKE ONE CAPSULE BY MOUTH DAILY. 100 Capsule 1 025 Active ALPRAZolam (XANAX) 0.25 mg tabletIndications :Generalized anxiety disorder TAKE ONE TABLET BY MOUTH one time DAILY NEEDED FOR ANXIETY OR insomnia. 30 Tablet 2 025 Active HYDROcodone-aceta minophen (NORCO) 5-325 mg tabletIndications :Chronic right-sided low back pain without sciatica Take 1 Tablet by mouth every 6 hours as needed for Pain, Moderate. Max Daily Amount: 4 Tablets 30 Tablet 025 Active finasteride (PROSCAR) 5 mg tabletIndications :Benign prostatic hyperplasia with nocturia Take 1 Tablet (5 mg) by mouth daily. 30 Tablet 3 025 Active lidocaine (LIDODERM) 5 % Adhesive Patch, MedicatedIndicati ons:Chronic midline low back pain with bilateral sciatica Apply 1 Patch to affected area every 24 hours. 30 Patch 2 025 Active ciprofloxacin HCl (Cipro) 500 mg tabletIndications :Urine retention,Benign prostatic hyperplasia with urinary obstruction Take 1 Tablet (500 mg) by mouth 2 times daily for 10 days. 20 Tablet 025 2024 Active lidocaine (LIDODERM) 5 % Adhesive Patch, MedicatedIndicati ons:Chronic midline low back pain with bilateral sciatica Apply 1 Patch to affected area every 24 hours. 30 Patch 2 025 2024 Discontinued(R eorder) HYDROcodone-aceta minophen (NORCO) 5-325 mg tabletIndications :Chronic right-sided low back pain without sciatica Take 1 Tablet by mouth every 6 hours as needed for Pain, Moderate. Max Daily Amount: 4 Tablets 40 Tablet 025 2024 Discontinued Hospital, Clinic, or Other Facility Administered Medication Ordered Dose Route Frequency Start Date End Date Status dexAMETHasone (DECADRON) injection 4 mgIndications:Chroni c right-sided low back pain with left-sided sciatica 4 mg IM ONE TIME ONLY 04/22/2025 04/22/2025 En ded triamcinolone acetonide (KENALOG-40) injectable suspension 40 mgIndications:Chroni c right-sided low back pain with left-sided sciatica 40 mg IM ONE TIME ONLY 04/22/2025 04/22/2025 En ded lidocaine PF 1% (XYLOCAINE MPF) injection 3 mLIndications:Chroni c right-sided low back pain with left-sided sciatica 3 mL Ifil ONE TIME ONLY 04/22/2025 04/22/2025 En ded lidocaine 2% jelly 6 mLIndications:Gross hematuria,Urinary retention 6 mL Urethral ONE TIME ONLY 05/18/2025 05/18/2025 Ended Active Problems Problem Noted Date Diagnosed Date Generalized anxiety disorder 12/16/2023 Primary osteoarthritis of both knees 12/16/2023 AAA (abdominal aortic aneurysm) without rupture 05/10/2023 Situational mixed anxiety and depressive disorde r 02/02/2023 Gastroesophageal reflux disease without esophagi tis 10/01/2019 Arthritis of knee 10/01/2019 Knee pain 10/01/2019 Instability of left knee joint 10/01/2019 Chronic right-sided low back pain without sciati ca 10/01/2019 Encounters Date Type Department Care Team Description 05/18/2025 10:00 AM CDT [facility] [address] [phone] Pamela Skelotn NP Gross hematuria (Primary Dx); Urinary retention 05/18/[address] [address] Dominique Jasso FNP Medication Assistance 05/18/2025 Telephone [facility] [address] [place] [address] Nathalie Vieira, Erroneous encounter-disregard 05/16/2025 Results Follow-Up [address] [address] Dominique Jasso, SCUBA DIVING INSTRUCTOR URINE CULTURE 05/13/2025 5:20 PM CDT Office Visit [facility] [address] [place] [address] Dominique Jasso, SCUBA DIVING INSTRUCTOR Urine retention (Primary Dx); Benign prostatic hyperplasia with urinary obstruction; Urinary catheter in place 05/13/2025 5:04 PM CDT - 05/13/2025 5:38 PM CDT Emergency [facility] Emergency Medicine [address] [facility] [address] [place] [address] Atilio Harris, Discharge Disposition: Left without being seen 05/13/2025 Travel 05/13/2025 Nurse Triage [facility] [address] [place] [address] Nathalie Vieira, 05/13/2025 Telephone [facility] [address] [place] [address] Nathalie Vieira, DO Medication Assistance 05/06/2025 Results Follow-Up [facility] [address] [place] [address] Cyndi Rudd, JOSE COLON CANCER SCREEN, STOOL DNA 2025 External Device Data STL ABSTRACTION Provider, Abstract 04/30/2025 9:40 AM CDT Office Visit [facility] [address] [place] [address] Laureano, December, SCUBA DIVING INSTRUCTOR Benign prostatic hyperplasia with nocturia (Primary Dx); Chronic midline low back pain with bilateral sciatica 04/22/2025 8:20 AM CDT Office Visit [facility] [address] [place] [address] Cyndi Rudd, SCUBA DIVING INSTRUCTOR Chronic right-sided low back pain with left-sided sciatica (Primary Dx); Lesion of eyebrow; Screening for colon cancer 04/20/2025 Refill [facility] [address] [place] [address] Nathalie Vieira, Chronic right-sided low back pain without sciatica 03/31/2025 Telephone [facility] Vascular Surgery [address] [place] [address] Anthony Paez MD Follow Up 03/25/2025 10:30 AM CDT Office Visit [facility] Vascular Surgery [address] [place] [address] Anthony Paez MD Infrarenal abdominal aortic aneurysm (AAA) without rupture (Primary Dx) 03/23/2025 Telephone [facility] Vascular Surgery [address] [place] [address] Anthony Paez MD Appointment Verification 03/18/2025 External Device Data STL ABSTRACTION Provider, Abstract 03/18/2025 Telephone [facility] Vascular Surgery [address] [place] [address] Anthony Paez MD Referral; Follow Up 03/18/2025 Telephone [facility] [address] [place] [address] RahZohra anne Referral 03/17/2025 1:24 PM CDT - 03/17/2025 11:59 PM CDT Hospital Encounter [facility] CT Scan [place] [address] [place] [address] Nathalie Vieira, Discharge Disposition: Home or Self Care 03/17/2025 External Device Data STL ABSTRACTION Provider, Abstract 03/17/2025 Results Follow-Up [facility] [address] [place] [address] Nathalie Vieira DO CTA ABD PELVIS W AND/OR WO CONTRAST 03/16/2025 Orders Only [facility] [address] [place] [address] Laureano, December, SCUBA DIVING INSTRUCTOR Abdominal aortic aneurysm (AAA) without rupture, unspecified part (Primary Dx); Enlarging abdominal aortic aneurysm (AAA) 03/16/2025 Telephone [facility] [address] [place] [address] Nathalie Vieira, DO Provider Call 03/04/2025 Refill [facility] [address] [place] [address] Nathalie Vieira, DO Generalized anxiety disorder 02/26/2025 Refill [facility] [address] [place] [address] Laureano, December, SCUBA DIVING INSTRUCTOR Gastroesophageal reflux disease without esophagitis 02/26/2025 Refill [facility] [address] [place] [address] Laureano, December, SCUBA DIVING INSTRUCTOR Gastroesophageal reflux disease without esophagitis 02/18/2025 Orders Only [facility] [address] [place] [address] LaureanoDecember, SCUBA DIVING INSTRUCTOR Chronic midline low back pain with bilateral sciatica (Primary Dx) 02/18/2025 Telephone [facility] [address] [place] [address] Nathalie Vieira, DO Question 02/17/2025 10:20 AM CDT Office Visit [facility] [address] [place] [address] Laureano, December, SCUBA DIVING INSTRUCTOR Chronic midline low back pain with bilateral sciatica (Primary Dx); Infrarenal abdominal aortic aneurysm (AAA) without rupture; Hearing loss due to cerumen impaction, bilateral 02/17/2025 External Device Data STL ABSTRACTION Provider, Abstract 02/17/2025 Refill [facility] [address] [place] [address] Dariel, Nathalie L, DO Chronic right-sided low back pain without sciatica from Last 3 Months Family History Medical History Relation Name Comments [...] on file Legal Sex Male 12:22 PM GUIDE TOUR Gender Identity Not on file Sexual Orientation Not on file Last Filed Vital Signs [...] Mass Index 31.94 05/13/2025 5:45 PM CDT Plan of Treatment Upcoming Encounters Date Type Department Care Team (Late st Contact Info) Description 06/16/2025 8:30 AM CDT Office Visit [facility] [place] [address] [place] [address] Pamela Skelton NP [address] [place] [address] Health Maintenance Due Date Last Done Comments FIT/FOBT Q 1 YEAR (AUTO ORDER) 1970 DTAP/TDAP/TD VACCINES (1 - Tdap) 1971 PNEUMOCOCCAL VACCINE 50+ YEA RS (1 of 2 - PCV) 1971 FIT/FOBT Q 1 year 1997 Flex Sig/CT Colonography Q 5 years 1997 ZOSTER VACCINE (1 of 2) 2002 RSV VACCINE (60+ or ) (1 - Risk 60-74 years 1-dose series) 2012 COLORECTAL CANCER SCREENING (AUTO ORDER) 07/01/2024 07/01/2014 COLORECTAL SCREENING 07/01/2024 07/01/2014 Medicare Advantage ([place]) Preventative Visit/Annual Wellness Visit 09/03/2024 06/14/2022 INFLUENZA VACCINE (#1) 2025 06/14/2022, 2019 Colorectal Cancer Screening 04/30/2028 FIT-DNA Q 3 years 04/30/2028 04/30/2025, 07/08/2019 FIT/ DNA Q 3 YEARS (AUTO ORDER) 04/30/2028 04/30/2025, 04/29/2025, 07/08/2019, Additional history exists Colorectal Cancer Screening (AUTO ORDER) 04/29/2030 FLEX SIG/CT COLONOGRAPHY Q 5 YEARS (AUTO ORDER) 04/29/2030 04/29/2025, 04/29/2025 Procedures Procedure Name Priority Date/Time Associated Diagnosis Comments URINE CULTURE Routine 05/13/2025 6:00 PM CDT Urine retention URINALYSIS W/REFLEX MICROSCOPIC Stat 05/13/2025 4:01 PM CDT COLON CANCER SCREEN, STOOL DNA Routine 04/30/2025 1:28 AM CDT Screening for colon cancer CTA ABD PELVIS W AND/OR WO CONTRAST Stat 03/17/2025 2:24 PM CDT Abdominal aortic aneurysm (AAA) without rupture, unspecified part CREATININE Stat 03/17/2025 1:36 PM CDT NV REMOVAL IMPACTED CERUMEN IRRIGATION/LVG UNILAT Routine 02/17/2025 10:20 AM CDT Hearing loss due to cerumen impaction, bilateral from Last 3 Months Results * URINE CULTURE (05/13/2025 6:00 PM CDT) URINE CULTURE SEE NOTE [email or web address] Comment: CULTURE, URINE, ROUTINE Micro Number: [id number] Test Status: Final Specimen Source: Urine, indwelling (kerr) catheter Specimen Quality: Adequate Result: No Growth Test Performed at: [facility] [address] [place] [address] Sherrie Liz MD Urine (Urine, indwelling (Kerr) catheter) 05/13/2025 6:00 PM CDT 05/15/2025 3:41 AM CDT Dominique aJsso SCUBA DIVING INSTRUCTOR MICROBIOLOGY - GENERAL O RDERABLES Final Result [facility] [phone] [facility] [address] [place] [address] * (ABNORMAL) URINALYSIS WITH REFLEX MICROSCOPIC (05/13/2025 4:01 PM CDT) COLOR UA Yellow Pale to Dark Yellow 05/13/2025 4:08 PM CDT [facility] CLARITY UA Clear Clear 05/13/2025 4:08 PM CDT [facility] SPECIFIC GRAVITY UA 1.020 1.003 - 1.035 05/13/2025 4:08 PM CDT [facility] PH UA 6.5 5.0 - 8.0 05/13/2025 4:08 PM CDT [facility] LEUKOCYTE ESTERASE UA Trace(A) Negative 05/13/2025 4:08 PM CDT [facility] NITRITE UA Negative Negative 05/13/2025 4:08 PM CDT [facility] PROTEIN UA Negative Negative 05/13/2025 4:08 PM CDT [facility] GLUCOSE UA Negative Negative 05/13/2025 4:08 PM CDT [facility] KETONES UA Negative Negative 05/13/2025 4:08 PM CDT [facility] UROBILINOGEN UA 0.2 <2.0 mg/dL 4:08 PM CDT [facility] BILIRUBIN UA Negative Negative 05/13/2025 4:08 PM CDT [facility] BLOOD UA Negative Negative 05/13/2025 4:08 PM T [facility] Urine URINE SPECIMEN OBTAINED BY CLEAN CATCH PROCEDURE / Unknown Collection / Unknown 05/13/2025 4:01 PM CDT 05/13/2025 4:05 PM CDT us Atilio Harris DO URINE ORDERABLES [facility] Re [id number] [address] [place] [address] * COLON CANCER SCREEN, STOOL DNA (04/30/2025 1:28 AM CDT) COLOGUARD RESULT Negative Negative [facility] Comment: The Cologuard (TM) test was performed on this specimen. NEGATIVE TEST RESULT. A negative Cologuard result indicates a low likelihood that a colorectal cancer (CRC) or advanced adenoma (adenomatous polyps with more advanced pre-malignant features) is present. The chance that a person with a negative Cologuard test has a colorectal cancer is less than 1 in 1500 (negative predictive value >99.9%) or has an advanced adenoma is less than 5.3% (negative predictive value 94.7%). These data are based on a prospective cross-sectional study of 10,000 individuals at average risk for colorectal cancer who were screened with both Cologuard and colonoscopy. (Rosanna Easton, N Engl J Med 2014;370(14):9895-0818) The normal value (reference range) for this assay is negative. COLOGUARD RE-SCREENING RECOMMENDATION: Periodic colorectal cancer screening is an important part of preventive healthcare for asymptomatic individuals at average risk for colorectal cancer. Following a negative Cologuard result, the [place] [employer] Society and U.S. Multi-Society Task Force screening guidelines recommend a Cologuard re-screening interval of 3 years. References: [place] [employer] Guideline for Colorectal Cancer Screening: https://www.cancer.org/cancer/pioig-okfvzm-cfdasc/zqvsblcet-tnaodzemh-agfjrmm/ac s-rec ommendations.html.; Manuel DK, Diaz VIGIL, Zoë RevelesK, Colorectal Cancer Screening: Recommendations for Physicians and Patients from the U.S. Multi-Society Task Force on Colorectal Cancer Screening , Am J Gastroenterology 2017; 112:8617-9310. TEST DESCRIPTION: Composite algorithmic analysis of stool DNA-biomarkers with hemoglobin immunoassay. Quantitative values of individual biomarkers are not reportable and are not associated with individual biomarker result reference ranges. Cologuard is intended for colorectal cancer screening of adults of either sex, 45 years or older, who are at average-risk for colorectal cancer (CRC). Cologuard has been approved for use by the U.S. FDA. The performance of Cologuard was established in a cross sectional study of average-risk adults aged 50-84. Cologuard performance in patients ages 45 to 49 years was estimated by sub-group analysis of near-age groups. Colonoscopies performed for a positive result may find as the most clinically significant lesion: colorectal cancer [4.0%], advanced adenoma (including sessile serrated polyps greater than or equal to 1cm diameter) [20%] or non- advanced adenoma [31%]; or no colorectal neoplasia [45%]. These estimates are derived from a prospective cross-sectional screening study of 10,000 individuals at average risk for colorectal cancer who were screened with both Cologuard and colonoscopy. (Imperiale T. et al, N Engl J Med 2014;370(14):0718-0533.) Cologuard may produce a false negative or false positive result (no colorectal cancer or precancerous polyp present at colonoscopy follow up). A negative Cologuard test result does not guarantee the absence of CRC or advanced adenoma (pre-cancer). The current Cologuard screening interval is every 3 years. ([place] [employer] and U.S. Multi-Society Task Force). Cologuard performance data in a 10,000 patient pivotal study using colonoscopy as the reference method can be accessed at the following location: www.[employer].Stamped/results. Additional description of the Cologuard test process, warnings and precautions can be found at www.[email or web address]rd.com. Stool STOOL SPECIMEN / Unknown 04/30/2025 1:28 AM CDT 05/01/2025 6:45 PM CDT Cyndi Rudd SCUBA DIVING INSTRUCTOR BODY FLUIDS AND STOOLS Fin al Result [employer] CLIA # [id number] [address] [place] [address] * CTA ABD PELVIS W AND/OR WO CONTRAST (03/17/2025 2:24 PM CDT) Anatomical Region Laterality Modality Abdomen Computed Tomogra phy 03/17/2025 1:57 PM CDT Impressions 03/17/2025 2:57 PM CDT IMPRESSION: Please see below. Exam: CTA ABD PELVIS W AND/OR WO CONTRAST Date/Time of Exam: 03/17/2025 2:24 PM Reason For Exam: Aortic aneurysm (AAA), surveillance. Diagnosis: Abdominal aortic aneurysm (AAA) without rupture, unspecified part. Technique: 5 mm volumetric acquisition with oral and intravenous contrast. Contrast: IOPAMIDOL 61 % INTRAVENOUS SOLUTION (SINGLE USE VIAL) Given:100 mL Comparison: Complete abdominal ultrasound 05/30/2023. Findings: Partially visualized chest: No acute abnormality. Old granulomatous residuals. Liver: Normal. Gallbladder: Normal. Pancreas: Normal. Spleen: Normal. Adrenal glands: Normal. Kidneys and ureters: 4.1 cm exophytic cortical cyst lateral upper pole right kidney. Urinary bladder: Mild fusiform bladder wall thickening. Reproductive organs: The prostate is enlarged measuring up to 8.0 cm in diameter with median lobe hypertrophy extending into the base of the unopacified urinary bladder. GI tract: Diverticular change of the unopacified, tortuous large bowel is present. The remaining unopacified bowel is unremarkable. Appendix: The appendix specifically is within normal limits. Free fluid: No ascites. No pneumoperitoneum. Lymph nodes: No lymphadenopathy. Vasculature: No flow significant stenosis of the celiac artery is identified. Mild short segment ostial stenosis of the SMA is present. No flow significant stenosis of either renal artery is present. Aneurysmal dilatation with maximum anterior posterior diameter of the abdominal aorta of 5.6 cm is present. Body wall: Unremarkable. Osseous structures: No acute osseous abnormality. No suspicious lesions. IMPRESSION 1. Aneurysmal dilatation of the infrarenal abdominal aorta as described. 2. 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 3. Fusiform bladder wall thickening likely related to component of underlying chronic bladder outlet obstruction with prostatomegaly as described. 4. Right renal cortical cyst. Narrative Procedure Note Leonela Duran MD - 03/17/2025 IMPRESSION: Please see below. Exam: CTA ABD PELVIS W AND/OR WO CONTRAST Date/Time of Exam: 03/17/2025 2:24 PM Reason For Exam: Aortic aneurysm (AAA), surveillance. Diagnosis: Abdominal aortic aneurysm (AAA) without rupture, unspecified part. Technique: 5 mm volumetric acquisition with oral and intravenous contrast. Contrast: IOPAMIDOL 61 % INTRAVENOUS SOLUTION (SINGLE USE VIAL) Given:100 mL Comparison: Complete abdominal ultrasound 05/30/2023. Findings: Partially visualized chest: No acute abnormality. Old granulomatous residuals. Liver: Normal. Gallbladder: Normal. Pancreas: Normal. Spleen: Normal. Adrenal glands: Normal. Kidneys and ureters: 4.1 cm exophytic cortical cyst lateral upper pole right kidney. Urinary bladder: Mild fusiform bladder wall thickening. Reproductive organs: The prostate is enlarged measuring up to 8.0 cm in diameter with median lobe hypertrophy extending into the base of the unopacified urinary bladder. GI tract: Diverticular change of the unopacified, tortuous large bowel is present. The remaining unopacified bowel is unremarkable. Appendix: The appendix specifically is within normal limits. Free fluid: No ascites. No pneumoperitoneum. Lymph nodes: No lymphadenopathy. Vasculature: No flow significant stenosis of the celiac artery is identified. Mild short segment ostial stenosis of the SMA is present. No flow significant stenosis of either renal artery is present. Aneurysmal dilatation with maximum anterior posterior diameter of the abdominal aorta of 5.6 cm is present. Body wall: Unremarkable. Osseous structures: No acute osseous abnormality. No suspicious lesions. IMPRESSION 1. Aneurysmal dilatation of the infrarenal abdominal aorta as described. 2. 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 3. Fusiform bladder wall thickening likely related to component of underlying chronic bladder outlet obstruction with prostatomegaly as described. 4. Right renal cortical cyst. us Nathalie Vieira DO CT ORDERABLES Final Resul t * CREATININE (03/17/2025 1:36 PM CDT) CREATININE 1.12 0.67 - 1.17 mg/dL 03/17/2025 1:54 PM CDT [facility] Comment:The GFR result is no t clinically significant on patients <18 or >70 years of age. GFR >60 mL/min/1.7 3 sq meter 03/17/2025 1:54 PM CDT [facility] Comment:eGFR calculated with 2020 CKD-EPI equation. Vegetarian diet, extremely high or low muscle mass, and may affect results. Cystatin C with Glomerular Filtration Rate is a suitable alternative for these patients. Blood Collection / Unknown 03/17/2025 1:36 PM CDT 03/17/2025 1:36 PM CDT us Nathalie Vieira DO CHEMISTRY ORDERABLES Final Result [id number] [address] [place] [id number] * Ear Wax Removal (02/17/2025 10:20 AM CDT) Narrative [facility] - 02/17/2025 10:20 AM CDT Betty Laureano FNP 02/17/2025 12:37 PM Ear Wax Removal Date/Time: 02/17/2025 10:20 AM Performed by: Betty Laureano FNP Authorized by: Betty Laureano FNP Comments: Verbal consent obtained. Indication(s) for procedure: Impairs visualization of EAC, TM or middle ear and Sx such as itching, pain, hearing loss, etc. due to irritative cerumen Cerumen was gently removed from the bilateral canal(s) using gentle irrigation. Time spent: 5 minutes. Degree of effort required: low Tympanic membranes are intact following the procedure. Auditory canals appear normal. Betty GARCIA PROCEDURE/MINOR SURGICAL ORDERAB LES Final Result Performing Organization Address City/State/[facility] Co de Phone Number [facility] CLIA# [id number] [address] [place] [address] from Last 3 Months Insurance [place] [place] [address] DUAL COMPLETE PPO [facility] [id number] Care Teams Gymnastics Instructor Relationship Specialty Start Date End Date Nathalie Vieira DO [address] [phone] PCP - General Family Practice 06/30/19
--- OUTSIDE RECORDS SUMMARY | 2025-05-18 19:11 | XMS_ITS | Encounter Summary ---
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 Gender Identity Not on file Sexual Orientation Not on file documented as of this encounter Plan of Treatment Upcoming Encounters Date Type Department Care Team ( Contact Info) Description 06/16/2025 8:30 AM CDT Office Visit [facility] [place] [address] [place] [address] Pamela Skelton NP [address] [place] [phone] documented as of this encounter Visit Diagnoses Not on filedocumented in this encounter Care Teams Transfer And Pumphouse Operator Relationship Specialty Start Date End Date Nathalie Vieira DO [address] [place] [phone] PCP - General Family Practice 06/30/19 documented as of this encounter
--- OUTSIDE RECORDS SUMMARY | 2025-05-18 19:11 | XMS_ITS | Encounter Summary ---
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
--- OUTSIDE RECORDS SUMMARY | 2025-05-18 19:11 | XMS_ITS | Patient Health Record ---
Author Organization [employer] Address [address] [place] [address] Care Team Providers Care Carton Making Machinist Name Role Phone TONI THOMAS Unavailable [phone] Reason For Referral No Information Plan Of Treatment No Information Insurance Providers Payer Name Payer Address Payer Phone Subscriber Number Group Number Insured Name Patient Relationship to Insured Coverage Start Date Coverage End Date [facility] [address] [address] [place], [place] [id number] [phone] [id number] José Lu Self - patient is the insured
--- OUTSIDE RECORDS SUMMARY | 2025-05-18 19:11 | XMS_ITS | Encounter Summary ---
Author Organization [facility] Address [address] [place] [address] Care Team Providers Care Owner [employer] Name Role Phone Nathalie Vieira Primary Care Provider Encounter Details Date Type Department Care Team (Late st Contact Info) Description 05/06/2025 Results Follow-Up [facility] [place] [address] [place] [address] [facility] [address] [place] [address] COLON CANCER SCREEN, STOOL DNA Social History Tobacco Use Types Packs/Day Years [...] of Transportation (Non-Medical) Not on file 06/14/2022 Sex and Gender Information Value Date Recorded Sex Assigned at Not on file 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 Gender Identity Not on file Sexual Orientation Not on file documented as of this encounter Plan of Treatment Upcoming Encounters Date Type Department Care Team (Late st Contact Info) Description 06/16/2025 8:30 AM CDT Office Visit [facility] [place] [address] [facility] [address] [place] [phone] Pamela Skelton NP [address] [facility] [address] [place] [address] documented as of this encounter Visit Diagnoses Not on filedocumented in this encounter Care Teams Owner [employer] Relationship Specialty Start Date End Date Nathalie Vieira DO [address] [place] [address] PCP - General Family Practice 06/30/19 documented as of this encounter
[2025-05-18 19:28] VITALS: BP 134/78; PULSE 95; O2SAT 94
[2025-05-18 20:35] LABS: Hematocrit 35.9 % (37-53); Hemoglobin 12.00 g/dL (11.27-16.99); Mean Corpuscular HGB Conc 33.4 g/dL (30-55); Mean Corpuscular Hemoglobin 28.9 pg (27-33); Mean Corpuscular Volume 86.5 fl (82-101); Nucleated Red Blood Cells % 0 %; Platelet Count 245 10^3/cmm (157-399); Red Blood Count 4.15 10^6/uL (3.85-5.65); White Blood Count 6.50 10^3/uL (3.29-11.43)
--- NOTE | 2025-05-18 20:36 | W.ED.MALEGU ---
Documented by User: Chris Henson MD 05/18/25 21:41 HPI - Male Genitourinary General: Chief complaint: Urogenital-Male Stated complaint: Cath possibly clogged Time Seen by Provider: 05/18/25 19:19 History of Present Illness: 75-year-old male past medical history significant for lumbar stenosis, AAA without rupture, status post lumbar [facility] [address] [facility] subsequently developed urinary retention postoperatively and required placement of a urinary catheter, no urology here so was sent to [facility] to follow-up with urology for further care which he saw today in clinic, they did a trial of void and remove the catheter but he failed requiring replacement of the catheter, it reportedly took 3 nurses to replace the catheter due to suspected bladder outlet obstruction/BPH there was a significant amount of bleeding but they did get a catheter in place, while driving back the patient started noticing that there was no output into his Abreu catheter he was developing increasing need to urinate and started having intermittent spasms in his bladder causing urine to be expelled from the tip of his penis. Denies fever, no numbness or weakness to the legs or difficulty with ambulation Related Data Home Medications ?Medication ?Instructions ?Recorded ?Confirmed lisinopril 40 mg tablet 40 mg PO DAILY 10/30/19 05/14/25 lovastatin 20 mg tablet 20 mg PO DAILY 10/30/19 05/14/25 omeprazole 20 mg capsule,delayed 20 mg PO DAILY 10/30/19 05/14/25 release aspirin 81 mg tablet,delayed 81 mg PO .COMPLEX 11/21/19 05/14/25 release (Aspir-) Held on 05/08/25. Instructions: Resume on 05/10/25. tamsulosin 0.4 mg capsule (Flomax) 0.8 mg PO DAILY 07/19/20 05/14/25 alprazolam 0.25 mg tablet (Xanax) 0.125 mg PO TID PRN Anxiety 01/05/22 05/14/25 Previous Rx's ?Medication ?Instructions ?Recorded cefdinir 300 mg capsule 300 mg PO BID 7 days #14 caps 05/18/25 Allergies Allergy/AdvReac Type Severity Reaction Status Date / Time Penicillins Allergy Unknown Verified 05/18/25 19:21 PFSH ED PFSH: Medical History HTN (hypertension) Hyperlipemia, mixed Erectile dysfunction Elevated PSA Hypogonadism BPH loc w urin obs/LUTS AAA (abdominal aortic aneurysm) without rupture Surgical History Hx of cervical spine surgery Family History Mother , AT AGE 87 Heart attack CAD (coronary artery disease) Social History Smoking and tobacco/nicotine status: never used tobacco/nicotine Alcohol intake: never Substance/Drug Use: never Adopted: No Caregiver/support person: No Lives independently: No Household members: spouse Marital status: Current occupational status: employed Physical Exam Const: COMMON NORMALS: no acute distress, patient oriented x3 and healthy appearing HENMT: COMMON NORMALS: normocephalic and atraumatic HEAD & SCALP: normocephalic and atraumatic Eye: COMMON NORMALS: Equal, round and reactive pupils present and EOMs intact bilaterally PUPIL: Yes Equal, round and reactive pupils present Neck/C-Spine: COMMON NORMALS: full ROM and supple Chest: COMMONS NORMALS: normal inspection of the chest and normal palpation of entire chest wall Resp: COMMON NORMALS: normal respiratory effort, No retractions, No use of accessory muscles and clear to auscultation bilaterally AUSCULTATION: clear to auscultation bilaterally Cardio: COMMON NORMALS: regular rate, regular rhythm and No murmurs present (Cardio) RATE: regular rate RHYTHM: regular rhythm GI: COMMON NORMALS: Normal to inspection, nondistended, normoactive bowel sounds present, Soft to palpation and no masses PALPATION: Yes Soft to palpation and Yes Bladder palpation abnormal : BLADDER/KIDNEY EXAM: Yes catheter in place and Yes Bladder palpation abnormal Bladder abnormal details: tender and distended midway to the umbilicus PENIS: normal penis MEATUS: Erythema at meatus Extremity: COMMON NORMALS: normal to inspection and full ROM Neuro: COMMON NORMALS: patient oriented x3, moves all extremities and no focal motor deficits Psych: COMMON NORMALS: mental status grossly normal, Normal thought process present and cooperative THOUGHT PROCESS: Normal thought process present Skin: COMMON NORMALS: no rashes or lesions noted and no wounds GENERAL SKIN EXAM: no rashes or lesions noted Course Vital Signs: Vital signs: Vital Signs Temperature 98.2 F 05/18/25 19:09 Pulse Rate 73 05/18/25 21:35 Respiratory Rate 18 05/18/25 20:42 Blood Pressure 110/66 05/18/25 21:35 Pulse Oximetry 94 05/18/25 21:35 Oxygen Delivery Me thod Room Air 05/18/25 21:35 MDM - Male Medical Decision Making 75-year-old male presenting with acute urinary retention post lumbar laminectomy, Abreu placed, followed with urology today who attempted trial of void which failed, had difficulty replacing catheter there was noted bleeding, now with acute urinary retention likely secondary to clot formation clinically, plan for labs, pain control, attempt at manual irrigation and evacuation of clot, if not successful will require replacement of the Abreu catheter and repeat manual irrigation, if both not successful would require transfer to [facility] for urologic evaluation and CBI. Differential Diagnosis Likely urinary tract infection and acute retention of urine; Unlikely priapism, urethritis, epididymitis, genital herpes simplex, prostatitis or inguinal hernia Lab Data 05/18/25 20:21 05/18/25 20:21 Laboratory Results WBC 6.50 10^3/uL (3.29-11.43) 05/18/25 20:21 RBC 4.15 10^6/uL (3.85-5.65) 05/18/25 20:21 Hgb 12.00 g/dL (11.27-16.99) 05/18/25 20:21 Hct 35.9 % (37-53) L 05/18/25 20:21 MCV 86.5 fl (82-101) 05/18/25 20:21 MCH 28.9 pg (27-33) 05/18/25 20:21 MCHC 33.4 g/dL (30-55) 05/18/25 20:21 RDW 12.6 % (12.1-15.1) 05/18/25 20:21 Plt Count 245 10^3/cmm (157-399) 05/18/25 20:21 MPV 9.9 fL (7.4-10.4) 05/18/25 20:21 Neut % (Auto) 70.4 % 05/18/25 20:21 Lymph % (Auto) 14.5 % 05/18/25 20:21 [place] % (Auto) 12.2 % 05/18/25 20:21 Eos % (Auto) 1.8 % 05/18/25 20:21 Baso % (Auto) 0.3 % 05/18/25 20:21 Neut # (Auto) 4.58 10^3/uL (1.8-7.7) 05/18/25 20:21 Lymph # (Auto) 0.9 10^3/uL (0.8-4.8) 05/18/25 20:21 [place] # (Auto) 0.8 10^3/uL (0.2-0.9) 05/18/25 20:21 Eos # (Auto) 0.1 10^3/uL (0.0-0.8) 05/18/25 20:21 Baso # (Auto) 0.0 10^3/uL (0.0-0.1) 05/18/25 20: Nucleated RBC % (auto) 0 % 05/18/25 20: Nucleated RBCs # 0.0 /100WBC 05/18/25 20:21 Sodium 136 mmol/L (136-145) 05/18/25 20:21 Potassium 4.6 mmol/L (3.5-5.1) 05/18/25 20:21 Chloride 100 mmol/L (98-107) 05/18/25 20:21 Carbon Dioxide 24 mmol/L (22-29) 05/18/25 20:21 Anion Gap 16.6 (5-19) 05/18/25 20:21 BUN 16 mg/dL (8-23) 05/18/25 20:21 Creatinine 1.0 mg/dL (0.7-1.2) 05/18/25 20:21 GFR Calculation Not Reportable 05/18/25 20:21 Glucose 131 mg/dL (65-115) H 05/18/25 20:21 Calculated Osmolality 285 mOsm/kg (285-295) 05/18/25 20:21 Calcium 8.8 mg/dL (8.5-10.5) 05/18/25 20:21 Amorphous Sediment Not Reportable 05/18/25 21:26 Discharge Plan Discharge Patient Disposition: Home Clinical Impression: Complication of Abreu catheter, Urinary retention, Hematuria Condition: Stable Prescriptions: New cefdinir 300 mg capsule 300 mg PO BID 7 Days Qty: 14 0RF No Action tamsulosin [Flomax] 0.4 mg capsule 0.8 mg PO DAILY lisinopril 40 mg tablet 40 mg PO DAILY omeprazole 20 mg capsule,delayed release(DR/EC) 20 mg PO DAILY lovastatin 20 mg tablet 20 mg PO DAILY alprazolam [Xanax] 0.25 mg tablet 0.125 mg PO TID PRN (Reason: Anxiety) aspirin [Aspir-81] 81 mg tablet,delayed release (DR/EC) 81 mg PO .COMPLEX Rx Instructions: 81 mg PO 3 X WEEKLY; Discharge Orders: Discharge ED (Routine); Ordered 05/18/25 Ordered By: Lena Pelayo Referrals: Nathalie Vieira DO [Primary Care Provider, [facility]] Discharge Diet: Usual diet Discharge Activity: Increase activity as tolerated Patient Instructions: Abreu Catheter Placement and Care (ED), Opioid Safety, Pain Management, Patient Portal & Kg Instructions Activity Restrictions/Additional Instructions: Thank you for choosing [facility] for your healthcare needs today. You have been screened and evaluated and felt safe for discharge. Health conditions do change or evolve sometimes and as such it is important that you follow up with your Primary Doctor to be re checked, 3-5 days is a general good time frame for follow up. You are always welcome to return to the ED for re assessment if your symptoms are worsening or you have new concerns Print Language: Micronesian Coding Level of Care Code ED Chainstitch Hemmer for Chg Fwd Documented by User: Lena Pelayo MD 05/18/25 21:54 HPI - Male Genitourinary General: Chief complaint: Urogenital-Male Stated complaint: Cath possibly clogged Time Seen by Provider: 05/18/25 19:19 Related Data Home Medications ?Medication ?Instructions ?Recorded ?Confirmed lisinopril 40 mg tablet 40 mg PO DAILY 10/30/19 05/14/25 lovastatin 20 mg tablet 20 mg PO DAILY 10/30/19 05/14/25 omeprazole 20 mg capsule,delayed 20 mg PO DAILY 10/30/19 05/14/25 release aspirin 81 mg tablet,delayed 81 mg PO .COMPLEX 11/21/19 05/14/25 release (Aspir-) Held on 05/08/25. Instructions: Resume on 05/10/25. tamsulosin 0.4 mg capsule (Flomax) 0.8 mg PO DAILY 07/19/20 05/14/25 alprazolam 0.25 mg tablet (Xanax) 0.125 mg PO TID PRN Anxiety 01/05/22 05/14/25 Previous Rx's ?Medication ?Instructions ?Recorded cefdinir 300 mg capsule 300 mg PO BID 7 days #14 caps 05/18/25 Allergies Allergy/AdvReac Type Severity Reaction Status Date / Time Penicillins Allergy Unknown Verified 05/18/25 19:21 PFSH ED PFSH: Medical History HTN (hypertension) Hyperlipemia, mixed Erectile dysfunction Elevated PSA Hypogonadism BPH loc w urin obs/LUTS AAA (abdominal aortic aneurysm) without rupture Surgical History Hx of cervical spine surgery Family History Mother , AT AGE 87 Heart attack CAD (coronary artery disease) Social History Smoking and tobacco/nicotine status: never used tobacco/nicotine Alcohol intake: never Substance/Drug Use: never Adopted: No Caregiver/support person: No Lives independently: No Household members: spouse Marital status: Current occupational status: employed Course Vital Signs: Vital signs: Vital Signs Temperature 98.2 F 05/18/25 19:09 Pulse Rate 73 05/18/25 21:35 Respiratory Rate 18 05/18/25 20:42 Blood Pressure 110/66 05/18/25 21:35 Pulse Oximetry 94 05/18/25 21:35 Oxygen Delivery Me thod Room Air 05/18/25 21:35 MDM - Male Medical Decision Making 75-year-old male presenting with acute urinary retention post lumbar laminectomy, Abreu placed, followed with urology today who attempted trial of void which failed, had difficulty replacing catheter there was noted bleeding, now with acute urinary retention likely secondary to clot formation clinically, plan for labs, pain control, attempt at manual irrigation and evacuation of clot, if not successful will require replacement of the Abreu catheter and repeat manual irrigation, if both not successful would require transfer to [facility] for urologic evaluation and CBI. Patient care transitioned to mt at shift change. Awaiting voiding trial with fluids placed into the bladder. 500 cc were placed and came back out without difficulty. There appeared to be more of a blockage distally and so the leg bag is being replaced as well. Lab Data 05/18/25 20:21 05/18/25 20: Laboratory Results WBC 6.50 10^3/uL (3.29-11.43) 05/18/25 20: RBC 4.15 10^6/uL (3.85-5.65) 05/18/25 20: Hgb 12.00 g/dL (11.27-16.99) 05/18/25 20: Hct 35.9 % (37-53) L 05/18/25 20: MCV 86.5 fl (82-101) 05/18/25 20: MCH 28.9 pg (27-33) 05/18/25 20: MCHC 33.4 g/dL (30-55) 05/18/25 20: RDW 12.6 % (12.1-15.1) 05/18/25 20: Plt Count 245 10^3/cmm (157-399) 05/18/25 20: MPV 9.9 fL (7.4-10.4) 05/18/25 20: Neut % (Auto) 70.4 % 05/18/25 20: Lymph % (Auto) 14.5 % 05/18/25 20: [place] % (Auto) 12.2 % 05/18/25 20: Eos % (Auto) 1.8 % 05/18/25 20: Baso % (Auto) 0.3 % 05/18/25 20: Neut # (Auto) 4.58 10^3/uL (1.8-7.7) 05/18/25: Lymph # (Auto) 0.9 10^3/uL (0.8-4.8) 05/18/25 20:21 [place] # (Auto) 0.8 10^3/uL (0.2-0.9) 05/18/25 20:21 Eos # (Auto) 0.1 10^3/uL (0.0-0.8) 05/18/25 20:21 Baso # (Auto) 0.0 10^3/uL (0.0-0.1) 05/18/25 20:21 Nucleated RBC % (auto) 0 % 05/18/25 20:21 Nucleated RBCs # 0.0 /100WBC 05/18/25 20:21 Sodium 136 mmol/L (136-145) 05/18/25 20:21 Potassium 4.6 mmol/L (3.5-5.1) 05/18/25 20:21 Chloride 100 mmol/L (98-107) 05/18/25 20:21 Carbon Dioxide 24 mmol/L (22-29) 05/18/25 20:21 Anion Gap 16.6 (5-19) 05/18/25 20:21 BUN 16 mg/dL (8-23) 05/18/25 20:21 Creatinine 1.0 mg/dL (0.7-1.2) 05/18/25 20:21 GFR Calculation Not Reportable 05/18/25 20:21 Glucose 131 mg/dL (65-115) H 05/18/25 20:21 Calculated Osmolality 285 mOsm/kg (285-295) 05/18/25 20:21 Calcium 8.8 mg/dL (8.5-10.5) 05/18/25 20:21 Amorphous Sediment Not Reportable 05/18/25 21:26 No radiology studies performed this visit Discharge Plan Discharge Patient Disposition: Home Clinical Impression: Complication of Abreu catheter, Urinary retention, Hematuria Condition: Stable Prescriptions: New cefdinir 300 mg capsule 300 mg PO BID 7 Days Qty: 14 0RF No Action tamsulosin [Flomax] 0.4 mg capsule 0.8 mg PO DAILY lisinopril 40 mg tablet 40 mg PO DAILY omeprazole 20 mg capsule,delayed release(DR/EC) 20 mg PO DAILY lovastatin 20 mg tablet 20 mg PO DAILY alprazolam [Xanax] 0.25 mg tablet 0.125 mg PO TID PRN (Reason: Anxiety) aspirin [Aspir-81] 81 mg tablet,delayed release (DR/EC) 81 mg PO .COMPLEX Rx Instructions: 81 mg PO 3 X WEEKLY; Discharge Orders: Discharge ED (Routine); Ordered 05/18/25 Ordered By: Lena Pelayo Referrals: Nathalie Vieira DO [Primary Care Provider, [facility]] Discharge Diet: Usual diet Discharge Activity: Increase activity as tolerated Patient Instructions: Abreu Catheter Placement and Care (ED), Opioid Safety, Pain Management, Patient Portal & Kg Instructions Activity Restrictions/Additional Instructions: Thank you for choosing [facility] for your healthcare needs today. You have been screened and evaluated and felt safe for discharge. Health conditions do change or evolve sometimes and as such it is important that you follow up with your Primary Doctor to be re checked, 3-5 days is a general good time frame for follow up. You are always welcome to return to the ED for re assessment if your symptoms are worsening or you have new concerns Print Language: Micronesian Coding Level of Care Code ED Chainstitch Hemmer for Ami Shea
[2025-05-18 20:42] VITALS: RESP 18; O2SAT 94
[2025-05-18] MEDS: morphine 4 mg/mL SDV 1 mL IVP (20:42)
[2025-05-18 20:54] LABS: Anion Gap 16.6 (5-19); Blood Urea Nitrogen 16 mg/dL (8-23); Calcium 8.8 mg/dL (8.5-10.5); Carbon Dioxide 24 mmol/L (22-29); Chloride 100 mmol/L (98-107); Creatinine Clr Calc Pharmacy 80.0308; Glucose 131 mg/dL (65-115); Osmolality Calculated 285 mOsm/kg (285-295); Potassium 4.6 mmol/L (3.5-5.1); Sodium 136 mmol/L (136-145)
[2025-05-18 21:35] VITALS: BP 110/66; PULSE 73; O2SAT 94
[2025-05-18 21:40] LABS: Glucose Urine UA Negative (Normal); Nitrate Urine Negative (Negative); Specific Gravity, Urine 1.006 (1.005-1.030)
== END 2025-05-18 22:19 | disposition home or self-care (01) ==
PROVIDERS: Student in an Organized Health Care Education/Training Program; Emergency Provider Emergency Medicine; PCP Family Medicine
DX: T83.091A Other mechanical complication of indwelling urethral catheter, initial encounter (principal); R33.9 Retention of urine, unspecified; R31.9 Hematuria, unspecified; Z79.82 Long term (current) use of aspirin; E78.2 Mixed hyperlipidemia; I10 Essential (primary) hypertension; X58.XXXA Exposure to other specified factors, initial encounter
CPT/HCPCS: 36415; 80048; 81001; 85025; 96374; 99284; J2270

== ENCOUNTER 2025-05-19 11:44 | Emergency (ER) | payer OTHER, MEDICAID, SELFPAY ==
--- OUTSIDE RECORDS SUMMARY | 2023-12-24 12:00 | XMS_ITS ---
Author Organization [facility] Address [address] [facility] [place] [address] Care Team Providers Care Employee Relations Consultant Name Role Phone TONI THOMAS Unavailable [phone] REASON FOR VISIT BPH Encounters Encounter Location Date Provider Diagnosis [facility] [address] [place] [facility] [place] [address] 12/24/2023 TONI THOMAS Plan Of Treatment No Information Progress Notes * José LUDOB:[birth year] (75 yo M)Acc No.[id number]:12/24/2023 Progress Notes Patient: José CAMPA Provider: West THOMAS MD :1950 A ge:73 Y S ex:Male Date:12/24/2023 Address: [address] [place], [place] [id number] Subjective: * Chief Complaints: * 1 . BPH. * Medical History: Objective: * Vitals: Assessment: Plan: * Treatment: * Billing Information: * Visit Code: * Procedure Codes: * Electronic signature of AUST IN MD MARTHA on 05/19/2025 at 12:46 PM CDT Sign off status: Pending * Provider: West THOMAS MD Date: 12/24/2023 Generated for Seai ng/Fasheritag/eTransmitting on: 0 05/19/2025 12:46 PM CDT
[2025-05-19 11:49] VITALS: BP 113/68; PULSE 85; RESP 20; TEMP 36.8; O2SAT 95
--- OUTSIDE RECORDS SUMMARY | 2025-05-19 12:46 | XMS_ITS | Encounter Summary ---
Author Organization [facility] Address [address] [place] [address] Care Team Providers Care Platform Material Handling Supervisor Name Role Phone Nathalie Vieira DO Primary Care Provider [phone] Encounter Details Date Type Department Care Team (Late st Contact Info) Description 10/16/2005 [facility] [address] [place] [phone] Social History Tobacco Use Types Packs/Day Years Used Date Smoking Tobacco: Never Assessed Sex and Gender Information Value Date Recorded Sex Assigned at Not on file 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
--- OUTSIDE RECORDS SUMMARY | 2025-05-19 12:46 | XMS_ITS | Encounter Summary ---
Author Organization [facility] Address [address] [place] [address] Care Team Providers Care Cyber Incident Analyst Name Role Phone Nathalie Vieira DO Primary Care Provider [phone] Encounter Details Date Type Department Care Team (Latest Contact Info) Description 10/16/2005 Outpatient Historical [facility] [address] [place] [phone] Monica Garcia MD NO ADDRESS ON FILE LUMBOSACRAL SPONDYLOSIS (Primary Dx) Social History Tobacco Use Types Packs/Day Years Used Date Smoking Tobacco: Never Assessed Sex and Gender Information Value Date Recorded Sex Assigned at Not on file 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
--- OUTSIDE RECORDS SUMMARY | 2025-05-19 12:46 | XMS_ITS | Clinical Summary ---
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 Gender Identity Not on file Sexual Orientation [...] (AUTO ORDER) 07/08/2022 9, 07/08/2019 Medicare Advantage (ID) Prev entative Visit/Annual Wellness Visit 09/03/2024 06/28/2020 INFLUENZA VACCINE (#1) 2025 06/28/2020 Procedures Procedure Name Priority Date/Time Associated Diagnosis Comments COLON CANCER SCREEN, STOOL DNA Routine 07/08/2019 2:45 PM BASIC COMBATANT SWIMMER Screening for colon cancer from Last 3 Months or Most Recently Relevant to Health Maintenance Results * COLON CANCER SCREEN, STOOL DNA (07/08/2019 2:45 PM BASIC COMBATANT SWIMMER) COLOGUARD RESULT Negative Not Applicable [facility] Comment: A negative result indicates [...] (Rosanna Gordon al, N Engl J Med 2014;370(14):1258-1613) COLOGUARD RE-SCREENING RECOMMENDATION: Periodic routine colorectal cancer screening is an important part of preventive healthcare for asymptomatic persons at average risk for colorectal cancer. Following a negative Cologuard result, the [place] Cancer Society and U.S. Multi-Society Task Force screening guidelines recommend a Cologuard re-screening interval of 3 years. References: [place] Cancer Society (ACS). Colorectal cancer prevention and early detection. [place], [place]: [employer] Cancer Society; [updated 2015Dec 25]. https://www.cancer.org/cancer/vnjhi-xsfeac-uauedc/mrpaqhpxe-vtjfukhjv-kjfkzxr/ac s-rec ommendations.html. Accessed May 03, 2018; Manuel DK, Diaz CR, Zoë RevelesK, Colorectal Cancer Screening: Recommendations for Physicians and Patients from the U.S. Multi-Society Task Force on Colorectal Cancer Screening, Am J Gastroenterology 2017; 112:5112-2406. Test Type: Composite algorithmic analysis of stool [...] can be accessed at the following location: www.[employer]/results. Additional description of the Cologuard test process, warnings and precautions can be found at www.cologuardtest.com. Rx Only. Stool STOOL SPECIMEN / Unknown 07/08/2019 2:45 PM BASIC COMBATANT SWIMMER 07/09/2019 6:19 PM BASIC COMBATANT SWIMMER us Dominique Jasso HARNESSMAKER BODY FLUIDS AND STOOLS F inal Result [employer] CLIA # [id number] [address] , [address] [place] [address] from Last 3 Months or Most Recently Relevant to Health Maintenance Insurance [facility] DUAL COMPLETE MCR PPO D-SNP Care Teams Supervisor Of Guidance And Testing Relationship Specialty Start Date End Date Nathalie Vieira DO [address] [place] [facility] [place] [place] [phone] PCP - General Family Practice 06/30/19
--- OUTSIDE RECORDS SUMMARY | 2025-05-19 12:46 | XMS_ITS | Patient Health Record ---
Author Organization [facility] Address [address] [place] [address] Care Team Providers Care Yardage Control Operator Name Role Phone TONI THOMAS Unavailable [phone] Reason For Referral No Information Plan Of Treatment No Information Insurance Providers Payer Name Payer Address Payer Phone Subscriber Number Group Number Insured Name Patient Relationship to Insured Coverage Start Date Coverage End Date [facility] [address] [address] [place], [place] [id number] [phone] [id number] José Lu Self - patient is the insured
--- OUTSIDE RECORDS SUMMARY | 2025-05-19 12:46 | XMS_ITS | Encounter Summary ---
Author Organization [facility] Address [address] [place] [address] Care Team Providers Care Army Manager Name Role Phone Nathalie Vieira DO Primary Care Provider Encounter Details Date Type Department Care Team (Latest Contact Info) Description 10/23/2006 Outpatient Historical [facility] [place] [address] [place] [address] Mike Schaefer MD NO ADDRESS ON FILE Esophageal Reflux (Primary Dx); Pure Hypercholesterolem; Unspecified Chronic Ischemic Heart Disease Social History Tobacco Use Types Packs/Day Years Used Date Smoking Tobacco: Never Assessed Sex and Gender Information Value Date Recorded Sex Assigned at Not on file 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
--- NOTE | 2025-05-19 13:50 | W.ED.GENADLT ---
Documented by User: ALLA Rosa 05/19/25 14:15 HPI - General Adult General: Chief complaint: General Medical Stated complaint: Needs Cath checked out Time Seen by Provider: 05/19/25 13:39 Source: patient Mode of arrival: ambulatory Limitations: no limitations History of Present Illness: Patient is a 75-year-old male who presents to the emergency department complaining of decreased Abreu catheter output. He was seen here in the emergency department yesterday, states that he had some clots that were flushed out and this improved his symptoms greatly. He states he is starting to have the sensation of pain in his penis again, and is questioning if these are bladder spasms. States that he is still having drainage but it is only a small amount, and he would like it irrigated out. States he cannot have the catheter changed to due to the difficulty with advancement with initial placement. Urology is in [facility]. Labs obtained yesterday unremarkable. Urinalysis did not show any obvious signs of infection. Catheter was placed status post lumbar laminectomy. MD complaint: Decreased drainage from Abreu catheter Onset (ago): hour(s) Severity: similar to prior episodes Associated symptoms: Deny chest pain, diaphoresis, dyspnea, headache(s), nausea, rash, palpitations or vomiting Related Data Home Medications ?Medication ?Instructions ?Recorded ?Confirmed lisinopril 40 mg tablet 40 mg PO DAILY 10/30/19 05/14/25 lovastatin 20 mg tablet 20 mg PO DAILY 10/30/19 05/14/25 omeprazole 20 mg capsule,delayed 20 mg PO DAILY 10/30/19 05/14/25 release aspirin 81 mg tablet,delayed 81 mg PO .COMPLEX 11/21/19 05/14/25 release (Aspir-) Held on 05/08/25. Instructions: Resume on 05/10/25. tamsulosin 0.4 mg capsule (Flomax) 0.8 mg PO DAILY 07/19/20 05/14/25 alprazolam 0.25 mg tablet (Xanax) 0.125 mg PO TID PRN Anxiety 01/05/22 05/14/25 Previous Rx's ?Medication ?Instructions ?Recorded cefdinir 300 mg capsule 300 mg PO BID 7 days #14 caps 05/18/25 Allergies Allergy/AdvReac Type Severity Reaction Status Date / Time Penicillins Allergy Unknown Verified 05/18/25 19:21 Review of Systems General: Reports: 10 or more systems reviewed and unremarkable except in HPI and below Const: Denies: fever(s), chills, change in appetite, change in weight or diaphoresis ENMT: Denies: throat pain or hoarseness Card: Denies: chest pain, palpitations or lightheadedness Resp: Denies: dyspnea, productive cough or wheezing GI: Denies: abdominal pain, nausea, vomiting, diarrhea, constipation, bloating, change in stool character or hematochezia : Reports: other (Decreased Abreu catheter output, penile pain); Denies: flank pain, difficulty urinating, dysuria, urinary frequency or urinary urgency Musc: Denies: neck pain or back pain Skin/Breast: Denies: rash or new lesions Neuro: Denies: headache(s) or dizziness PFSH ED PFSH: Medical History HTN (hypertension) Hyperlipemia, mixed Erectile dysfunction Elevated PSA Hypogonadism BPH loc w urin obs/LUTS AAA (abdominal aortic aneurysm) without rupture Surgical History Hx of cervical spine surgery Family History Mother , AT AGE 87 Heart attack CAD (coronary artery disease) Social History Smoking and tobacco/nicotine status: never used tobacco/nicotine Alcohol intake: never Substance/Drug Use: never Adopted: No Caregiver/support person: No Lives independently: No Household members: spouse Marital status: Current occupational status: employed Physical Exam Const: COMMON NORMALS: no acute distress, average body habitus, patient oriented x3, no limitations, healthy appearing, alert and well nourished GENERAL APPEARANCE: cooperative and comfortable ORIENTATION/CONSCIOUSNESS: Yes awake Resp: COMMON NORMALS: normal respiratory effort, No retractions, No use of accessory muscles and clear to auscultation bilaterally AUSCULTATION: clear to auscultation bilaterally, no crackles, no rales, no rhonchi and no wheezes Cardio: COMMON NORMALS: regular rate, regular rhythm, No gallops present (Cardio), No clicks present (Cardio), No murmurs present (Cardio), No rub (Cardio) and Peripheral pulses 2+ throughout RATE: regular rate RHYTHM: regular rhythm PERIPHERAL PULSES: Peripheral pulses 2+ throughout GI: COMMON NORMALS: Normal to inspection, nondistended, normoactive bowel sounds present, Soft to palpation, non-tender, No hepatosplenomegaly present and no masses AUSCULTATION: Yes normoactive bowel sounds PALPATION: Yes Soft to palpation, No Guarding due to palpation present (GI), No Rigid due to palpation and Yes No hepatosplenomegaly present RECTAL EXAM: Yes deferred : COMMON NORMALS: Yes no CVA tenderness BLADDER/KIDNEY EXAM: Yes no CVA tenderness OTHER: Abreu catheter in place draining straw-colored urine. Examination of the penis shows mild balanitis, uncircumcised with no clinical signs of phimosis or paraphimosis. Back/Pelvis: COMMON NORMALS: no CVA tenderness Extremity: COMMON NORMALS: normal to inspection and full ROM Neuro: COMMON NORMALS: patient oriented x3, moves all extremities, no focal motor deficits and no sensory deficits noted SENSORIUM/ORIENTATION: Yes alert Psych: COMMON NORMALS: mental status grossly normal, cooperative and speech normal SPEECH: Yes normal speech Skin: COMMON NORMALS: no rashes or lesions noted GENERAL SKIN EXAM: no rashes or lesions noted Course Vital Signs: Vital signs: Vital Signs Temperature 98.3 F 05/19/25 11:49 Pulse Rate 86 05/19/25 14:16 Respiratory Rate 20 H 05/19/25 11:49 Blood Pressure 119/83 05/19/25 14:16 Pulse Oximetry 96 05/19/25 14:16 Oxygen Delivery Me thod Room Air 05/19/25 11:49 [facility] - General Adult Medical Decision Making This patient presented for the second time within 24 hours for concerns of his Abreu catheter. He had full workup last night, including labs and urinalysis all of which were unremarkable. Deemed that he had some clots that were cleared out with flushing yesterday and this greatly improved the symptoms, he had stated he was here for the same today as he started to notice continued sensation. Nontoxic on exam, noted that the Abreu catheter was draining straw-colored urine without apparent complication. Examination of the penis does not show any signs of phimosis or paraphimosis at would explain any consistency of pain, there was mild balanitis but patient tells me that he has had this appearance for years. And that this was not cause of his pain. Flushed here again in the emergency department, he notes significant resolution of his symptoms and is requesting to leave. I told him with continued monitoring and any further complications to schedule appointment with urology, he had stated we could not replace his Abreu catheter here due to the amount of significant bladder outlet obstruction, so I again told him to follow-up with urology for further issues. Overall he is stable for discharge home, will not repeat labs. No radiology studies performed this visit Discharge Plan Discharge Patient Disposition: Home Clinical Impression: Status post lumbar laminectomy Complication of Abreu catheter Qualifiers: Encounter type: initial encounter Qualified Code(s): T83.9XXA - Unspecified complication of genitourinary prosthetic device, implant and graft, initial encounter Condition: Stable Prescriptions: No Action tamsulosin [Flomax] 0.4 mg capsule 0.8 mg PO DAILY lisinopril 40 mg tablet 40 mg PO DAILY omeprazole 20 mg capsule,delayed release(DR/EC) 20 mg PO DAILY lovastatin 20 mg tablet 20 mg PO DAILY alprazolam [Xanax] 0.25 mg tablet 0.125 mg PO TID PRN (Reason: Anxiety) aspirin [Aspir-81] 81 mg tablet,delayed release (DR/EC) 81 mg PO .COMPLEX Rx Instructions: 81 mg PO 3 X WEEKLY; cefdinir 300 mg capsule 300 mg PO BID 7 Days Qty: 14 0RF Discharge Orders: Discharge ED (Routine); Ordered 05/19/25 Ordered By: Adarsh Giordano Referrals: Nathalie Vieira DO [Primary Care Provider, Family Practice] Patient Instructions: Patient Portal & Kg Instructions Activity Restrictions/Additional Instructions: Please follow-up with urology at [facility]. Return with any cessation of drainage of urine from Abreu catheter, any fevers, significant abdominal pain, bright red blood, or any other concerns. Continue routine cath care. Print Language: Turkish Coding Level of Care Code ED Cap Maker for Chg Fwd Documented by User: Jorje Rea DO 05/19/25 14:39 HPI - General Adult General: Chief complaint: General Medical Stated complaint: Needs Cath checked out Time Seen by Provider: 05/19/25 13:39 Related Data Home Medications ?Medication ?Instructions ?Recorded ?Confirmed lisinopril 40 mg tablet 40 mg PO DAILY 10/30/19 05/14/25 lovastatin 20 mg tablet 20 mg PO DAILY 10/30/19 05/14/25 omeprazole 20 mg capsule,delayed 20 mg PO DAILY 10/30/19 05/14/25 release aspirin 81 mg tablet,delayed 81 mg PO .COMPLEX 11/21/19 05/14/25 release (Aspir-) Held on 05/08/25. Instructions: Resume on 05/10/25. tamsulosin 0.4 mg capsule (Flomax) 0.8 mg PO DAILY 07/19/20 05/14/25 alprazolam 0.25 mg tablet (Xanax) 0.125 mg PO TID PRN Anxiety 01/05/22 05/14/25 Previous Rx's ?Medication ?Instructions ?Recorded cefdinir 300 mg capsule 300 mg PO BID 7 days #14 caps 05/18/25 Allergies Allergy/AdvReac Type Severity Reaction Status Date / Time Penicillins Allergy Unknown Verified 05/18/25 19:21 PFSH ED PFSH: Medical History HTN (hypertension) Hyperlipemia, mixed Erectile dysfunction Elevated PSA Hypogonadism BPH loc w urin obs/LUTS AAA (abdominal aortic aneurysm) without rupture Surgical History Hx of cervical spine surgery Family History Mother , AT AGE 87 Heart attack CAD (coronary artery disease) Social History Smoking and tobacco/nicotine status: never used tobacco/nicotine Alcohol intake: never Substance/Drug Use: never Adopted: No Caregiver/support person: No Lives independently: No Household members: spouse Marital status: Current occupational status: employed Course Vital Signs: Vital signs: Vital Signs Temperature 98.3 F 05/19/25 11:49 Pulse Rate 86 05/19/25 14:16 Respiratory Rate 20 H 05/19/25 11:49 Blood Pressure 119/83 05/19/25 14:16 Pulse Oximetry 96 05/19/25 14:16 Oxygen Delivery Me thod Room Air 05/19/25 11:49 MDM - General Adult Medical Decision Making This patient presented for the second time within 24 hours for concerns of his Abreu catheter. He had full workup last night, including labs and urinalysis all of which were unremarkable. Deemed that he had some clots that were cleared out with flushing yesterday and this greatly improved the symptoms, he had stated he was here for the same today as he started to notice continued sensation. Nontoxic on exam, noted that the Abreu catheter was draining straw-colored urine without apparent complication. Examination of the penis does not show any signs of phimosis or paraphimosis at would explain any consistency of pain, there was mild balanitis but patient tells me that he has had this appearance for years. And that this was not cause of his pain. Flushed here again in the emergency department, he notes significant resolution of his symptoms and is requesting to leave. I told him with continued monitoring and any further complications to schedule appointment with urology, he had stated we could not replace his Abreu catheter here due to the amount of significant bladder outlet obstruction, so I again told him to follow-up with urology for further issues. Overall he is stable for discharge home, will not repeat labs. Chart reviewed and patient discussed with midlevel. Agree with assessment and plan. Discharge Plan Discharge Patient Disposition: Home Clinical Impression: Status post lumbar laminectomy Complication of Abreu catheter Qualifiers: Encounter type: initial encounter Qualified Code(s): T83.9XXA - Unspecified complication of genitourinary prosthetic device, implant and graft, initial encounter Condition: Stable Prescriptions: No Action tamsulosin [Flomax] 0.4 mg capsule 0.8 mg PO DAILY lisinopril 40 mg tablet 40 mg PO DAILY omeprazole 20 mg capsule,delayed release(DR/EC) 20 mg PO DAILY lovastatin 20 mg tablet 20 mg PO DAILY alprazolam [Xanax] 0.25 mg tablet 0.125 mg PO TID PRN (Reason: Anxiety) aspirin [Aspir-81] 81 mg tablet,delayed release (DR/EC) 81 mg PO .COMPLEX Rx Instructions: 81 mg PO 3 X WEEKLY; cefdinir 300 mg capsule 300 mg PO BID 7 Days Qty: 14 0RF Discharge Orders: Discharge ED (Routine); Ordered 05/19/25 Ordered By: Adarsh Giordano Referrals: Nathalie Vieira DO [Primary Care Provider, [facility]] Patient Instructions: Patient Portal & Kg Instructions Activity Restrictions/Additional Instructions: Please follow-up with urology at [facility]. Return with any cessation of drainage of urine from Abreu catheter, any fevers, significant abdominal pain, bright red blood, or any other concerns. Continue routine cath care. Print Language: Turkish Coding Level of Care Code ED Cap Maker for Ami Shea
--- NOTE | 2025-05-19 14:13 | PC.NURSE ---
PT cath irragated and drains fine
[2025-05-19 14:16] VITALS: BP 119/83; PULSE 86; O2SAT 96
== END 2025-05-19 14:18 | disposition home or self-care (01) ==
PROVIDERS: Emergency Provider Physician Assistant; PCP Family Medicine
DX: T83.091A Other mechanical complication of indwelling urethral catheter, initial encounter (principal); Z79.82 Long term (current) use of aspirin; I10 Essential (primary) hypertension; E78.2 Mixed hyperlipidemia; X58.XXXA Exposure to other specified factors, initial encounter
CPT/HCPCS: 99281

== ENCOUNTER → 2025-05-28 10:19 | Outpatient (BNVA) | payer OTHER, MEDICAID, SELFPAY | PROVIDERS: PCP Family Medicine; Visit Provider Orthopaedic Surgery | DX: Z98.890 Other specified postprocedural states (principal) | CPT/HCPCS: 99024 ==

== ENCOUNTER → 2025-06-11 13:06 | Outpatient (BNVA) | payer OTHER, MEDICAID, SELFPAY | PROVIDERS: PCP Family Medicine; Visit Provider Orthopaedic Surgery | DX: Z98.890 Other specified postprocedural states (principal) | CPT/HCPCS: 72110; 99024 ==

== ENCOUNTER 2025-07-07 09:06 | Emergency (ER) | payer OTHER, MEDICAID, SELFPAY ==
--- OUTSIDE RECORDS SUMMARY | 2025-06-30 10:00 | XMS_ITS | Encounter Summary ---
Author Organization [facility] Address [address] [place] [address] Care Team Providers Care Electrical Accessories Assembler Name Role Phone Nathalie Vieira Primary Care Provider [phone] Reason for Visit * Reason Comments Follow Up Urinary f/u Chronic Conditions Coordination Encounter Details Date Type Department Care Team (Late st Contact Info) Description 06/30/2025 11:00 AM CDT Office Visit [facility] [address] [place] [address] [facility] [address] [place] [phone] Recurrent UTI (urinary tract infection) (Primary Dx); Benign prostatic hyperplasia with urinary retention; Chronic right-sided low back pain without sciatica Social History Tobacco Use Types Packs/Day Years [...] of Transportation (Non-Medical) Not on file 06/14/2022 Food Insecurity Answer Date Recorded Do you find you are eating l ess than you should because you can t pay for food? No 06/18/2025 Transportation Needs Answer Date Record ed Have you gone without health care because you didn t have a way to get there? Or worry about transportation for future doctor visits, picker feeder medication, etc.? No 2024 Housing Stability Answer Date Recorded Do you worry you won t have a steady place to sleep or struggle to pay rent or mortgage? No 06/18/2025 Utility Needs Answer Date Recorded Do you have difficulty payin g for utility costs (electric, water or gas bills)? No 06/18/2025 Medication Needs Answer Date Recorded Have you skipped taking medi cation due to cost or worry you can t afford new medications? No 06/18/2025 Feeling Safe Answer Date Recorded Are you in a relationship wi th someone who hurts you emotionally and/or physically? 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[employer] Gender Identity Not on file Sexual Orientation Not on file documented as of this encounter Last Filed Vital Signs Vital Sign Reading Time Taken Comments Blood Pressure 140/70 06/30/2025 11:11 AM CDT Pulse 94 06/30/2025 11:10 AM CDT Temperature 36.9 C (98.4 F) 06/30/2025 11:10 AM CDT Respiratory Rate 17 06/30/2025 11:10 AM CDT Oxygen Saturation 97% 06/30/2025 11:10 AM CDT Inhaled Oxygen Concentration - - Weight 102.3 kg (225 lb 8 oz) 06/30/2025 11:10 A M CDT Height 180.3 cm (5' 11 ) 06/30/2025 11:10 AM CDT Body Mass Index 31.45 06/30/2025 11:10 AM CDT documented in this encounter Progress Notes * Cyndi Rudd FNP - 06/30/2025 11:12 AM CDT Chief Complaint Patient presents with Follow Up Urinary f/u Chronic Conditions Coordination Patient Active Problem List Diagnosis Code Gastroesophageal reflux disease without esophagitis K21.9 Arthritis of knee M17.10 Knee pain M25.569 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 He has been under the care of urology and primary care, with two ER visits for urinary retention and UTI symptoms this past couple of months. His health has declined since nerve decompression surgery on May 08, 2025, but recovery is gradual. Mild back pain persists upon walking, which is expected to last weeks tomonths. Currently, he has a temporary catheter inserted at [facility] on June 25, 2025. He is scheduled to see a urologist in 2-3 weeks. He maintains hygiene with soap, water, and staff therapist. He reports no fevers or hematuria. His last antibiotic dose was on . 10 point review of systems is otherwise negative except as mentioned above. Past Medical History: Diagnosis Date AAA (abdominal aortic aneurysm) without rupture 05/10/2023 Chronic midline low back pain with bilateral sciatica 10/01/2019 Gastroesophageal reflux disease without esophagitis 10/01/2019 GERD (gastroesophageal reflux disease) HTN (hypertension) Unspecified disorder of lipoid metabolism Current Outpatient Medications Medication Instructions ALPRAZolam (XANAX) 0.25 mg tablet TAKE ONE TABLET BY MOUTH one time DAILY NEEDED FOR ANXIETY OR insomnia. arginine/B12/folic acid/B6 (L-ARGININE [employer]S Eligible ORAL) 1 Capsule, DAILY finasteride (PROSCAR) 5 mg, Oral, DAILY fluticasone propionate (FLONASE) 50 mcg/spray [place], Suspension nasal inhaler 2 Sprays, Both Nostrils, TWO TIMES DAILY HYDROcodone-acetaminophen (NORCO) 5-325 mg tablet 1 Tablet, Oral, EVERY 6 HOURS PRN ibuprofen (MOTRIN) 600 mg, Oral, EVERY 6 HOURS PRN lidocaine (LIDODERM) 5 % Adhesive Patch, Medicated 1 Patch, Topical, EVERY 24 HOURS (DAILY) lisinopriL (PRINIVIL) 40 mg, Oral, DAILY lovastatin (MEVACOR) 20 mg, Oral, DAILY WITH SUPPER nitroglycerin (NITROSTAT) 0.4 mg, Sublingual, EVERY 5 MINUTES PRN omeprazole (PRILOSEC) 40 mg, Oral, DAILY oxyBUTYnin (DITROPAN) 5 mg tablet TAKE ONE TABLET BY MOUTH THREE TIMES DAILY NEEDED FOR spasm. tamsulosin (FLOMAX) 0.8 mg, Oral, DAILY Past Surgical History: Procedure Laterality Date HX SPINAL SURGERY [place] ESOPHAGOGASTRODUODENOSCOPY TRANSORAL DIAGNOSTIC N/A 07/01/2014 ESOPHAGOGASTRODUODENOSCOPY performed by Ankush Romero MD at [facility] [place] Past social, family, and medical history reviewed. BP (!) 140/70 Pulse 94 Temp 98.4 ??F (36.9 ??C) Resp 17 Ht 5' 11 (1.803 m) Wt 102.3 kg (225 lb 8 oz) SpO2 97% BMI 31.45 kg/m?? Physical Exam Constitutional: General: He is not in acute distress. Appearance: Normal appearance. He is not ill-appearing. HENT: Head: Normocephalic. Right Ear: External ear normal. Left Ear: External ear normal. Nose: Nose normal. Eyes: Conjunctiva/sclera: Conjunctivae normal. Cardiovascular: Rate and Rhythm: Normal rate and regular rhythm. Pulses: Normal pulses. Heart sounds: Normal heart sounds. No murmur heard. Pulmonary: Effort: Pulmonary effort is normal. No respiratory distress. Breath sounds: Normal breath sounds. Musculoskeletal: Right lower leg: No edema. Left lower leg: No edema. Skin: General: Skin is warm and dry. Neurological: Mental Status: He is alert and oriented to person, place, and time. Psychiatric: Mood and Affect: Mood normal. Behavior: Behavior normal. Lab Results Component Value Date/Time PHUA 7.0 06/30/2025 11:15 AM SGUR 1.020 06/18/2025 09:17 PM URINELEUKOC 1+ (A) 06/30/2025 11:15 AM NITRITEUA Positive (A) 06/30/2025 11:15 AM KETONEURINE Negative 06/30/2025 11:15 AM PROTEINUA Trace (A) 06/30/2025 11:15 AM GLUUA Negative 06/30/2025 11:15 AM BLOODUA Negative 06/30/2025 11:15 AM ICD-10-CM ICD-9-CM 1. Recurrent UTI (urinary tract infection) N39.0 599.0 POC URINALYSIS DIPSTICK AUTOMATED URINE CULTURE URINE CULTURE 2. Benign prostatic hyperplasia with urinary retention N40.1 600.01 POC URINALYSIS DIPSTICK AUTOMATED R33.8 788.20 URINE CULTURE URINE CULTURE PSA 3. Chronic right-sided low back pain without sciatica M54.50 724.2 G89.29 338.29 Assessment & Plan Recurrent UTIs: - Three antibiotic courses in the past month, including Macrobid completed last . He currently has a Abreu catheter in place. Today patient report no urinary pain. No flank or kidney pain. Noblood in urine. - Quick urine test showed leukocytes and nitrates, possibly affected by catheter. - Urine culture send off to confirm infection. - Advised to maintain genital hygiene and monitor symptoms. - Antibiotics if culture confirms infection. BPH with urinary retention: - Temporary catheter inserted at [facility] on 06/18/2025. - Scheduled urologist visit next month for evaluation and potential catheter removal. - PSA level to be drawn today. I do not see previous PSA level drawn in recent years - Continue with finasteride 5 mg and Flomax 0.8 mg daily JAMIR Middleton The author of this note, patient (or authorized front office representative), and all other persons present consent to the audio recording of this visit for charting documentation purposes. This note was automatically generated, edited by a Quality Grades 9 12 Tutor, and finalized by JOSE Carl. 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 [place] [address] [phone] Pamela Skelton NP [facility] [address] [facility] [address] [place] [address] documented as of this encounter Procedures Procedure Name Priority Date/Time Associated Diagnosis Comments PSA Routine 06/30/2025 11:35 AM CDT Benign prostatic hyperplasia with urinary retention URINE CULTURE Routine 06/30/2025 11:16 AM CDT Recurrent UTI (urinary tract infection) Benign prostatic hyperplasia with urinary retention POC URINALYSIS DIPSTICK AUTOMATED Routine 06/30/2025 11:15 AM CDT Recurrent UTI (urinary tract infection) Benign prostatic hyperplasia with urinary retention documented in this encounter Results * PSA (06/30/2025 11:35 AM CDT) PSA 3.07 < OR = 4.00 ng/mL [facility] Comment: The total PSA value from this assay system is standardized against the WHO standard. The test result will be approximately 20% lower when compared to the equimolar-standardized total PSA (Martínez Chris). Comparison of serial PSA results should be interpreted with this fact in mind. This test was performed using the Siemens chemiluminescent method. Values obtained from different assay methods cannot be used interchangeably. PSA levels, regardless of value, should not be interpreted as absolute evidence of the presence or absence of disease. Test Performed at: [facility] [address] [place] [address] Sherrie Liz MD Blood 06/30/2025 11:3 5 AM CDT 07/01/2025 5:28 AM CDT Cyndi Rudd ENVIRONMENTAL HEALTH OFFICER CHEMISTRY ORDERABLES Final Result [facility] [phone] [facility] [address] [place] [address] * (ABNORMAL) URINE CULTURE (06/30/2025 11:16 AM CDT) URINE CULTURE SEE NOTE(A) [facility] Comment: CULTURE, URINE, ROUTINE Micro Number: [id number] Test Status: Final Specimen Source: Urine, clean catch Specimen Quality: Adequate Result: Greater than 100,000 CFU/mL of Enterobacter cloacae complex E. cloacae INT ROS AMOX/CLAVULANATE R >=32 CEFAZOLIN R >=32 1 CEFEPIME S <=0.12 CEFTAZIDIME S <=0.5 CIPROFLOXACIN I 0.5 GENTAMICIN S <=1 IMIPENEM S 0.5 LEVOFLOXACIN S 0.5 MEROPENEM S <=0.25 NITROFURANTOIN R 256 PIP/TAZOBACTAM S <=4 TRIMETHOPRIM/SULFA S <=20 S = Susceptible I = Intermediate R = Resistant NS = Not susceptible SDD = Susceptible Dose Dependent * = Not Tested NR = Not Reported NN = See Therapy Comments THERAPY COMMENTS Note 1: For uncomplicated UTI caused by E. coli, K. pneumoniae or P. mirabilis: Cefazolin is susceptible if ROS <32 mcg/mL and predicts susceptible to the oral agents cefaclor, cefdinir, cefpodoxime, cefprozil, cefuroxime, cephalexin and loracarbef. Test Performed at: [facility] [address] [place] [address] Sherrie Liz MD Urine URINE SPECIMEN OBTAINED BY CLEAN CATCH PROCEDURE / Unknown 06/30/2025 11:16 AM CDT 07/01/2025 4:57 AM CDT Cyndi Rudd [facility] MICROBIOLOGY - GENERAL ORD ERABLES Final Result [facility] [phone] [facility] [address] [place] [phone] * (ABNORMAL) POC URINALYSIS DIPSTICK AUTOMATED (06/30/2025 11:15 AM CDT) COLOR UA POC Yellow Pale to Dark Yellow [facility] CLARITY UA POC Clear Clear, Other [facility] GLUCOSE UA POC Negative Negative, Normal [facility] BILIRUBIN UA POC Negative Negative [facility] KETONES UA POC Negative Negative [facility] SPECIFIC GRAVITY UA POC 1.020 1.000 - 1.030 [facility] BLOOD UA POC Negative Negative [facility]IC [facility] PH UA POC 7.0 5.0 - 8.0 [facility] CLIN IC [facility] PROTEIN UA POC Trace(A) Negative [facility] UROBILINOGEN UA POC 0.2 <2.0 mg/dL [facility] NITRITE UA POC Positive(A) Negative [facility] LEUKOCYTE ESTERASE UA POC 1+(A) Negative [facility] KIT LOT NUMBER POC [phone],040 [facility] KIT EXP DATE POC 03/02/2026 [facility] Urine 06/30/2025 11:1 5 AM CDT Cyndi Rudd ENVIRONMENTAL HEALTH OFFICER POINT OF CARE TESTING Asya kerr Result [facility] CLIA# [id number] [address] [place] [address] documented in this encounter Visit Diagnoses Diagnosis Recurrent UTI (urinary tract infection)- Primary Urinary tract infection, site not specified Benign prostatic hyperplasia with urinary retention Chronic right-sided low back pain without sciatica documented in this encounter Care Teams Electrical Accessories Assembler Relationship Specialty Start Date End Date Nathalie Vieira DO [address] [place] [address] PCP - General Family Practice 06/30/19 documented as of this encounter
--- NOTE | 2025-07-07 09:07 | XR_ITS ---
WS: [id number] Portable AP upright chest, 07/07/2025 Clinical Data: cp Comparison: None. Findings: No nodules, masses or effusions are seen. The heart is normal. The pulmonary vascularity is not increased. No pneumonia or pneumothorax is seen. The aortic arch and descending thoracic aorta show minimal calcification and tortuosity. Monitor leads are on the chest wall. XR/XR chest 1V portable [id number] Impression: Atherosclerosis.
[2025-07-07 09:09] VITALS: BP 153/86; PULSE 91; RESP 18; TEMP 36.8; O2SAT 98; BMI 30.7
--- NOTE | 2025-07-07 09:10 | W.ED.CHESTPA ---
HPI - Chest Pain General: Chief Complaint: Chest Pain Stated Complaint: cp Time Seen by Provider: 07/07/25 09:07 Source: patient Mode of arrival: ambulatory Limitations: no limitations History of Present Illness: 75-year-old male states has been having chest pain has been going on for he states 6 to 7 years. He states its been intermittent pains that seem to come and go. He states that he recently had back surgery 2 months ago and it seems to have been worsening. States he has pain currently that is just a sharp pain in the center of his chest he rates a 2 out of 10 states it is like his pain has been for years he denies any shortness of breath denies any nausea. Related Data Home Medications ?Medication ?Instructions ?Recorded ?Confirmed lisinopril 40 mg tablet 40 mg PO DAILY 10/30/19 06/11/25 lovastatin 20 mg tablet 20 mg PO DAILY 10/30/19 06/11/25 omeprazole 20 mg capsule,delayed 20 mg PO DAILY 10/30/19 06/11/25 release aspirin 81 mg tablet,delayed 81 mg PO .COMPLEX 11/21/19 06/11/25 release (Aspir-) Held on 05/08/25. Instructions: Resume on 05/10/25. tamsulosin 0.4 mg capsule (Flomax) 0.8 mg PO DAILY 07/19/20 06/11/25 alprazolam 0.25 mg tablet (Xanax) 0.125 mg PO TID PRN Anxiety 01/05/22 06/11/25 Previous Rx's ?Medication ?Instructions ?Recorded prednisone 20 mg tablet 20 mg PO DAILY 7 days #15 tabs 06/04/25 gabapentin 300 mg capsule 300 mg PO TID 1 month #90 caps 06/11/25 Allergies Allergy/AdvReac Type Severity Reaction Status Date / Time Penicillins Allergy Unknown Verified 06/11/25 13:15 Review of Systems Card: Reports: chest pain PFSH ED PFSH: Medical History HTN (hypertension) Hyperlipemia, mixed Erectile dysfunction Elevated PSA Hypogonadism BPH loc w urin obs/LUTS AAA (abdominal aortic aneurysm) without rupture Surgical History Hx of cervical spine surgery Family History Mother , AT AGE 87 Heart attack CAD (coronary artery disease) Social History Smoking and tobacco/nicotine status: never used tobacco/nicotine Alcohol intake: never Substance/Drug Use: never Adopted: No Caregiver/support person: No Lives independently: No Household members: spouse Marital status: Current occupational status: employed Physical Exam Const: COMMON NORMALS: no acute distress, patient oriented x3 and healthy appearing HENMT: COMMON NORMALS: normocephalic and atraumatic HEAD & SCALP: normocephalic and atraumatic Eye: COMMON NORMALS: conjunctivae normal CONJUNCTIVA: Yes conjunctivae normal Neck/C-Spine: COMMON NORMALS: full ROM and supple Chest: COMMONS NORMALS: normal inspection of the chest Resp: COMMON NORMALS: normal respiratory effort, No retractions, No use of accessory muscles and clear to auscultation bilaterally AUSCULTATION: clear to auscultation bilaterally Cardio: COMMON NORMALS: regular rate, regular rhythm and No murmurs present (Cardio) RATE: regular rate RHYTHM: regular rhythm GI: COMMON NORMALS: Normal to inspection, nondistended, normoactive bowel sounds present, Soft to palpation, non-tender and no masses PALPATION: Yes Soft to palpation Extremity: COMMON NORMALS: normal to inspection and full ROM Neuro: COMMON NORMALS: patient oriented x3, moves all extremities and no focal motor deficits Psych: COMMON NORMALS: mental status grossly normal, Normal thought process present and cooperative THOUGHT PROCESS: Normal thought process present Skin: COMMON NORMALS: no rashes or lesions noted and no wounds GENERAL SKIN EXAM: no rashes or lesions noted Course Vital Signs: Vital signs: Vital Signs Temperature 98.2 F 07/07/25 09:09 Pulse Rate 82 07/07/25 10:00 Respiratory Rate 18 07/07/25 09:09 Blood Pressure 119/68 07/07/25 10:00 Pulse Oximetry 96 07/07/25 10:00 Oxygen Delivery Me thod Room Air 07/07/25 09:09 MDM - Chest Pain Medical Decision Making Patient presents for chest pain is atypical in nature has been going on for 6 to 7 years. He has been pain-free here. Differential includes ACS, pulm emboli, pneumonia, aortic dissection. Patient here has no signs of pulmonary embolism chest x-ray here was normal with no mediastinal widening or signs of pneumonia I did interpret myself. EKG here shows normal sinus rhythm heart rate [address] elevation QRS 90 QTc 395. His initial troponin here is normal do not believe he needs to have a 2-hour troponin as his heart score is 3 and he has had pain for years. I did go over his lab findings along with EKG and x-ray informed him he needs to follow-up his PCP in 1 to 3 days return if worsening he understands agrees to plan. Medical Records I reviewed the patient's medical records. Lab Data I reviewed the patient's lab results. 07/07/25 09:16 07/07/25 09:16 Radiology Impressions Chest X-Ray 07/07/25 09:07 Impression: Atherosclerosis. Laboratory Results WBC 5.81 10^3/uL (3.29-11.43) 07/07/25 09:16 RBC 4.49 10^6/uL (3.85-5.65) 07/07/25 09:16 Hgb 12.50 g/dL (11.27-16.99) 07/07/25 09:16 Hct 37.8 % (37-53) 07/07/25 09:16 MCV 84.2 fl (82-101) 07/07/25 09:16 MCH 27.8 pg (27-33) 07/07/25 09:16 MCHC 33.1 g/dL (30-55) 07/07/25 09:16 RDW 14.0 % (12.1-15.1) 07/07/25 09:16 Plt Count 187 10^3/cmm (157-399) 07/07/25 09:16 MPV 10.5 fL (7.4-10.4) H 07/07/25 09:16 Neut % (Auto) 72.5 % 07/07/25 09:16 Lymph % (Auto) 10.8 % 07/07/25 09:16 [place] % (Auto) 11.7 % 07/07/25 09:16 Eos % (Auto) 4.3 % 07/07/25 09:16 Baso % (Auto) 0.2 % 07/07/25 09:16 Neut # (Auto) 4.21 10^3/uL (1.8-7.7) 07/07/25 09:16 Lymph # (Auto) 0.6 10^3/uL (0.8-4.8) L 07/07/25 09:16 [place] # (Auto) 0.7 10^3/uL (0.2-0.9) 07/07/25 09:16 Eos # (Auto) 0.3 10^3/uL (0.0-0.8) 07/07/25 09:16 Baso # (Auto) 0.0 10^3/uL (0.0-0.1) 07/07/25 09:16 Nucleated RBC % (auto) 0 % 07/07/25 09:16 Nucleated RBCs # 0.0 /100WBC 07/07/25 09:16 PT 12.30 SECONDS (12.1-14.9) 07/07/25 09:16 INR 0.86 (0.8-1.2) 07/07/25 09:16 Sodium 136 mmol/L (136-145) 07/07/25 09:16 Potassium 4.1 mmol/L (3.5-5.1) 07/07/25 09:16 Chloride 104 mmol/L (98-107) 07/07/25 09:16 Carbon Dioxide 22 mmol/L (22-29) 07/07/25 09:16 Anion Gap 14.1 (5-19) 07/07/25 09:16 BUN 12 mg/dL (8-23) 07/07/25 09:16 Creatinine 1.0 mg/dL (0.7-1.2) 07/07/25 09:16 GFR Calculation Not Reportable 07/07/25 09:16 Glucose 105 mg/dL (65-115) 07/07/25 09:16 Calculated Osmolality 282 mOsm/kg (285-295) L 07/07/25 09:16 Calcium 9.2 mg/dL (8.5-10.5) 07/07/25 09:16 Total Bilirubin 1.0 mg/dL (0.15-1.2) 07/07/25 09:16 AST 76 U/L (0-40) H 07/07/25 09:16 ALT 123 U/L (0-41) H 07/07/25 09:16 Alkaline Phosphatase 241 U/L (40-130) H 07/07/25 09:16 Troponin T Baseline 12 ng/L (0-15) 07/07/25 09:16 Total Protein 7.1 g/dL (6.6-8.7) 07/07/25 09:16 Albumin 3.8 g/dL (3.5-5.2) 07/07/25 09:16 Globulin 3.3 g/dL (1.3-4.6) 07/07/25 09:16 Lipase 56 U/L (13-60) 07/07/25 09:16 All radiology interpretation(s) finalized by discharge EKG Data EKG 1: I personally reviewed and interpreted this EKG as follows: EKG interpretation date: 07/07/25 EKG interpretation time: 09:11 Interpretation: nsr hr [address] elevation qrs 90 qtc 395 Discharge Plan Discharge Patient Disposition: Home Clinical Impression: Atypical chest pain Condition: Stable Prescriptions: No Action tamsulosin [Flomax] 0.4 mg capsule 0.8 mg PO DAILY lisinopril 40 mg tablet 40 mg PO DAILY omeprazole 20 mg capsule,delayed release(DR/EC) 20 mg PO DAILY lovastatin 20 mg tablet 20 mg PO DAILY alprazolam [Xanax] 0.25 mg tablet 0.125 mg PO TID PRN (Reason: Anxiety) aspirin [Aspir-81] 81 mg tablet,delayed release (DR/EC) 81 mg PO .COMPLEX Rx Instructions: 81 mg PO 3 X WEEKLY; gabapentin 300 mg capsule 300 mg PO TID 30 Days Qty: 90 0RF prednisone 20 mg tablet 20 mg PO DAILY 7 Days Qty: 15 0RF Rx Instructions: 60mg daily for 3 days 40mg daily for 2 days 20mg daily for 2 days Discharge Orders: Discharge ED (Routine); Ordered 07/07/25 Ordered By: Cyndi Black Referrals: Nathalie Vieira DO [Primary Care Provider, Family Practice] - 1-3 days Discharge Diet: Advance as tolerated Discharge Activity: Resume usual activity Patient Instructions: Chest Pain (ED) Print Language: Tristanian Coding Level of Care Code ED Maintenance Team Leader for Chg Fwd Heart Score HEART Score Components History: Slightly Suspicous EKG: Normal Age: 65 or more yrs Risk Factors: 1 or 2 Risk Factors Troponin: Baseline Trop <16 ng/L HEART Score RESULT HEART Score: 3
--- NOTE | 2025-07-07 09:11 | ECG_ITS ---
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 Measurements Intervals [place] Rate: 90 P: -2 SD: 140 QRS: 23 QRSD: 90 T: 62 QT: 347 QTc: 426 Interpretive Statements SINUS RHYTHM Compared to ECG 03/13/2025 10:55:50 T-wave abnormality no longer present Electronically Signed On 07-07-2025 21:54:24 BAG TURNER by Raman Gomez M.D. [email or web address]
[2025-07-07 09:24] LABS: Hematocrit 37.8 % (37-53); Hemoglobin 12.50 g/dL (11.27-16.99); Mean Corpuscular HGB Conc 33.1 g/dL (30-55); Mean Corpuscular Hemoglobin 27.8 pg (27-33); Mean Corpuscular Volume 84.2 fl (82-101); Nucleated Red Blood Cells % 0 %; Platelet Count 187 10^3/cmm (157-399); Red Blood Count 4.49 10^6/uL (3.85-5.65); White Blood Count 5.81 10^3/uL (3.29-11.43)
--- OUTSIDE RECORDS SUMMARY | 2025-07-07 09:25 | XMS_ITS | Encounter Summary ---
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
--- OUTSIDE RECORDS SUMMARY | 2025-07-07 09:25 | XMS_ITS | Encounter Summary ---
Author Organization [facility] Address [address] [place] [address] Care Team Providers Care Rounding Machine Operator Name Role Phone Nathalie Vieira DO Primary Care Provider [phone] Reason for Visit * Reason Comments Clinical Consult Before Scheduling Encounter Details Date Type Department Care Team (Late st Contact Info) Description 05/13/[address] 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 Topic: Symptomatic Care >> May 13, 2025 2:32 PM Yulia Rivera wrote: Has this patient seen any provider (current or former) at the requested clinic in the past? Yes, Select the appropriate age range and symptom Patient has symptoms and is seeking care. Caller Name: Sagar Callback Number: [phone] Call Notes: not able to urinate Age Range/Symptom: Adult 18+ - Urinary & Bladder Infection - can not urinate Does patient have any of the following other urgent symptoms: No urgent symptoms requiring warm call transfer documented in this encounter Plan of Treatment Upcoming Encounters Date Type Department Care Team (Late st Contact Info) Description 07/20/2025 1:30 PM INTERPRETATIVE DANCER Office Visit [facility] Urology [address] [place] [address] Pamela Skelton NP [address] [place] [phone] documented as of this encounter Visit Diagnoses Not on filedocumented in this encounter Care Teams Rounding Machine Operator Relationship Specialty Start Date End Date Nathalie Vieira DO [address] [place] [address] PCP - General Family Practice 06/30/19 documented as of this encounter
--- OUTSIDE RECORDS SUMMARY | 2025-07-07 09:25 | XMS_ITS | Clinical Summary ---
Author Organization [facility] Address [address] [place] [address] Care Team Providers Care Issuer Name Role Phone Nathalie Vieira Primary Care [...] on file Legal Sex Male 3:31 AM FLOOR TECH Gender Identity Not on file Sexual Orientation [...] Flex Sig/CT Colonography Q 5 years 1997 RSV VACCINE (60+ or ) (1 - Risk 50-74 years 1-dose series) 2002 ZOSTER VACCINE (1 of 2) 2002 Colorectal Cancer Screening (AUTO ORDER) 07/08/2022 Colorectal Cancer Screening 07/08/2022 FIT-DNA Q 3 years 07/08/2022 07/08/2019 FIT/ DNA Q 3 YEARS (AUTO ORDER) 07/08/2022 9, 07/08/2019 [place]) Prev entative Visit/Annual Wellness Visit 09/03/2024 06/28/2020 INFLUENZA VACCINE (#1) 2025 06/28/2020 Procedures Procedure Name Priority Date/Time Associated Diagnosis Comments COLON CANCER SCREEN, STOOL DNA Routine 07/08/2019 2:45 PM FLOOR TECH Screening for colon cancer from Last 3 Months or Most Recently Relevant to Health Maintenance Results * COLON CANCER SCREEN, STOOL DNA (07/08/2019 2:45 PM FLOOR TECH) COLOGUARD RESULT Negative Not Applicable Home Inventory S[[facility] Comment: A negative result indicates [...] (Rosanna Gordon al, N Engl J Med 2014;370(14):7039-9425) COLOGUARD RE-SCREENING RECOMMENDATION: Periodic routine colorectal cancer screening is an important part of preventive healthcare for asymptomatic persons at average risk for colorectal cancer. Following a negative Cologuard result, the [place] Cancer Society and U.S. Multi-Society Task Force screening guidelines recommend a Cologuard re-screening interval of 3 years. References: [employer] Cancer Society (ACS). Colorectal cancer prevention and early detection. [place], [place]: [place] Cancer Society; [updated 2015Dec 25]. https://www.cancer.org/cancer/boqan-hojtab-xpfrps/nzkmmrmrm-pcjkjftpc-zoenqhz/ac s-rec ommendations.html. Accessed May 03, 2018; Manuel DK, Diaz CR, Zoë RevelesK, Colorectal Cancer Screening: Recommendations for Physicians and Patients from the U.S. Multi-Society Task Force on Colorectal Cancer Screening, Am J Gastroenterology 2017; 112:9112-6641. Test Type: Composite algorithmic analysis of stool [...] can be accessed at the following location: www.damntheradio/results. Additional description of the Cologuard test process, warnings and precautions can be found at www.cologuardtest.com. Rx Only. Stool STOOL SPECIMEN / Unknown 07/08/2019 2:45 PM FLOOR TECH 07/09/2019 6:19 PM FLOOR TECH us Dominique Jasso [employer] BODY FLUIDS [employer] STOOLS F inal Result [employer] CLIA # [id number] [address] , [address] [place] [address] from Last 3 Months or Most Recently Relevant to Health Maintenance Insurance [facility] DUAL [employer]PLETE MCR PPO D-SNP Care Teams Issuer Relationship Specialty Start Date End Date Nathalie Vieira DO [address] [facility] [place] [address] PCP - General Family Practice 06/30/19
--- OUTSIDE RECORDS SUMMARY | 2025-07-07 09:25 | XMS_ITS | Encounter Summary ---
Author Organization [facility] Address [address] [place] [address] Care Team Providers Care Experimental Rocketsled Mechanic Name Role Phone Nathalie Vieira DO Primary Care Provider [phone]- [phone] Reason for Visit * Reason Comments Clinical Consult Before Scheduling Encounter Details Date Type Department Care Team (Late st Contact Info) Description 07/07/2025 Nurse Triage [facility] Medicine [place] [address] [place] [address] Nathalie Vieira, [address] [place] [address] Social History Tobacco Use Types [...] worry about transportation for future doctor visits, medicinal plant picker medication, etc.? No 2024 Housing Stability Answer [...] on file Legal Sex Male 12:22 PM [employer] Gender Identity Not on file Sexual Orientation Not on file documented as of this encounter Miscellaneous Notes * Telephone Encounter - Stephanie Hernandez LPN - 07/07/2025 8:26 AM CST Pt complains of Chest Pain that he took a nitro for last night. States that his heart is flutteringtoo. Pt instructed to call 911 or go to local ER. Pt verb understanding Stephanie Hernandez LPN, 07/07/2025 8:27 AM [facility] [employer] * Telephone Encounter - Geno Issa - 07/07/2025 8:21 AM CST Copied from [facility] #[id number]. Topic: Symptomatic Care >> Jul 07, 2025 8:16 AM Geno Guerrero wrote: Has this patient seen any provider (current or former) at the requested clinic in the past? Yes, Select the appropriate age range and symptom Patient has symptoms and is seeking care. Caller Name: Pt Callback Number: Telephone Information: Call Notes: chest pain has been going on for awhile and getting worse. Pt states he took a nitro and it got better / Age Range/Symptom: Adult: 18+ & not High Risk Chest pain, heaviness or discomfort - active (having it now) Is there an encounter open? No Transferred to [facility] nathalie and Patircia answered call. [facility] documented in this encounter Plan of Treatment Upcoming Encounters Date Type Department Care Team (Late st Contact Info) Description 07/20/2025 1:30 PM [employer] Office Visit [facility] Urology [place] [address] [facility] [address] [place] [phone] Pamela Skelton NP [address] [place] [address] documented as of this encounter Visit Diagnoses Not on filedocumented in this encounter Care Teams Experimental Rocketsled Mechanic Relationship Specialty Start Date End Date Nathalie Vieira DO [address] [place] [id number] PCP - General Family Practice 06/30/19 documented as of this encounter
--- OUTSIDE RECORDS SUMMARY | 2025-07-07 09:25 | XMS_ITS | Clinical Summary ---
Author Organization [facility] Address [address] [place] [address] Care Team Providers Care Public Health Technician Name Role Phone Nathalie Vieira Primary Care Provider Allergies Active Allergy Reactions Criticality Noted Date Comments Penicillins Anaphylaxis High 02/10/2014 Medications ibuprofen (MOTRIN) 600 mg tabletIndications: Fever in other diseases Take 1 Tablet (600 mg) by mouth every 6 hours as needed for Pain, Mild. 90 Tablet 05/23/20 23 Active nitroglycerin (NITROSTAT) 0.4 mg Tablet, SublingualIndicati ons:Angina at rest Place 1 Tablet (0.4 mg) under tongue every 5 minutes as needed for Chest Pain. 28 Tablet 1 06/01/20 23 Active fluticasone propionate (FLONASE) 50 mcg/spray [place], Suspension nasal inhalerIndications :Fluid collection of middle ear Administer 2 Sprays in each nostril 2 times daily. 16 Gram 3 09/06/19 24 Active arginine/B12/folic acid/B6 (L-ARGININE MEN'S HEALTH ORAL) Take 1 Capsule by mouth daily. Active lovastatin (MEVACOR) 20 mg tabletIndications: Mixed hyperlipidemia Take 1 Tablet (20 mg) by mouth daily with supper. 90 Tablet 4 08/07/20 24 Active lisinopriL (PRINIVIL) 40 mg tabletIndications: Essential hypertension Take 1 Tablet (40 mg) by mouth daily. 100 Tablet 3 08/07/20 24 Active omeprazole (PriLOSEC) 40 mg Capsule, Delayed Release(E.C.)Indic ations:Gastroesoph ageal reflux disease without esophagitis TAKE ONE CAPSULE BY MOUTH DAILY. 100 Capsule 1 02/27/20 25 Active ALPRAZolam (XANAX) 0.25 mg tabletIndications: Generalized anxiety disorder TAKE ONE TABLET BY MOUTH one time DAILY NEEDED FOR ANXIETY OR insomnia. 30 Tablet 2 03/04/20 25 Active HYDROcodone-acetam inophen (NORCO) 5-325 mg tabletIndications: Chronic right-sided low back pain without sciatica Take 1 Tablet by mouth every 6 hours as needed for Pain, Moderate. Max Daily Amount: 4 Tablets 30 Tablet 04/20/20 25 Active finasteride (PROSCAR) 5 mg tabletIndications: Benign prostatic hyperplasia with nocturia Take 1 Tablet (5 mg) by mouth daily. 30 Tablet 3 04/30/20 25 Active lidocaine (LIDODERM) 5 % Adhesive Patch, MedicatedIndicatio ns:Chronic midline low back pain with bilateral sciatica Apply 1 Patch to affected area every 24 hours. 30 Patch 2 04/30/20 25 Active tamsulosin (FLOMAX) 0.4 mg capsuleIndications :Benign prostatic hyperplasia without lower urinary tract symptoms TAKE TWO capsules BY MOUTH daily 180 Capsule 3 06/03/20 25 Active oxyBUTYnin (DITROPAN) 5 mg tablet TAKE ONE TABLET BY MOUTH THREE TIMES DAILY NEEDED FOR spasm. 30 Tablet 06/05/20 25 Active sulfamethoxazole-t rimethoprim (BACTRIM DS) 800-160 mg tabletIndications: Recurrent UTI (urinary tract infection) Take 1 Tablet by mouth 2 times daily for 10 days. 20 Tablet 07/03/20 25 025 Active ALPRAZolam (XANAX) 0.5 mg tabletIndications: Anxiety,Primary insomnia TAKE 1 TABLET BY MOUTH 1 TIME DAILY NEEDED FOR ANXIETY OR INSOMNIA 30 Tablet 01/03/20 24 025 Discontinu ed(Duplica te Therapy) nitrofurantoin (MACROBID) 100 mg capsuleIndications :Acute cystitis without hematuria Take 1 Capsule (100 mg) by mouth 2 times daily for 7 days. 14 Capsule 06/04/20 25 025 cephALEXin (KEFLEX) 500 mg capsule Take 1 Capsule (500 mg) by mouth 2 times daily for 7 days. 14 Capsule 06/17/20 25 025 Discontinu ed(Alterna te therapy prescribed ) nitrofurantoin (MACROBID) 100 mg capsule Take 1 Capsule (100 mg) by mouth 2 times daily for 7 days. 14 Capsule 06/18/20 25 025 Active Problems Problem Noted Date Diagnosed Date Urinary retention 06/28/2025 Benign prostatic hyperplasia with urinary retent ion 06/28/2025 Essential hypertension 06/28/2025 Recurrent UTI (urinary tract infection) 06/28/20 25 Mixed hyperlipidemia 06/28/2025 Generalized anxiety disorder 12/16/2023 Primary osteoarthritis of both knees 12/16/2023 AAA (abdominal aortic aneurysm) without rupture 05/10/2023 Situational mixed anxiety and depressive disorde r 02/02/2023 Gastroesophageal reflux disease without esophagi tis 10/01/2019 Arthritis of knee 10/01/2019 Knee pain 10/01/2019 Instability of left knee joint 10/01/2019 Chronic right-sided low back pain without sciati ca 10/01/2019 Encounters Date Type Department Care Team Description 07/07/2025 Nurse Triage [facility] [address] [place] [address] Nathalie Vieira DO 07/03/2025 Results Follow-Up [facility] [address] [place] [address] Cyndi Rudd, TUBE KNITTER POC URINALYSIS DIPSTICK AUTOMATED, URINE CULTURE, PSA 06/30/2025 11:00 AM CDT Office Visit [facility] [address] [place] [address] Cyndi Rudd, TUBE KNITTER Recurrent UTI (urinary tract infection) (Primary Dx); Benign prostatic hyperplasia with urinary retention; Chronic right-sided low back pain without sciatica 06/24/2025 External Device Data ST[facility] ABSTRACTION Provider, Abstract 06/23/2025 External Device Data [facility] ABSTRACTION Provider, Abstract 06/20/2025 Results Follow-Up [facility] Emergency Department [address] [place] [address] Cris Hair, RN URINE CULTURE 06/18/2025 9:54 PM CDT - 06/18/2025 10:49 PM CDT Emergency [facility] Emergency Department [address] [place] [address] Zainab Dunbar MD Urinary retention (Primary Dx); Acute cystitis with hematuria Discharge Disposition: Home or Self Care 06/18/2025 4:46 PM CDT - 06/18/2025 7:00 PM CDT Emergency [facility] Emergency Medicine [address] [place] [address] Freddy Moreno MD Bone, Jose Shelley MD Acute on chronic retention of urine (Primary Dx) [facility] 06/18/2025 Travel 06/18/2025 Telephone [facility] [address] [place] [address] Nathalie Vieira DO Patient Communication 06/17/2025 4:00 PM CDT Office Visit [facility] [address] [place] [address] Nathalie Vieira DO Recurrent UTI (urinary tract infection) (Primary Dx); Urinary retention; Gastroesophageal reflux disease without esophagitis; Generalized anxiety disorder; Benign prostatic hyperplasia with urinary retention; Essential hypertension; Mixed hyperlipidemia; Infrarenal abdominal aortic aneurysm (AAA) without rupture 06/16/2025 8:30 AM CDT Office Visit [address] [place] [address] Pamela Skelton NP Benign prostatic hyperplasia with urinary retention (Primary Dx) 06/09/2025 External Device Data STL ABSTRACTION Provider, Abstract 06/09/2025 External Device Data [facility] ABSTRACTION Provider, Abstract 06/05/[address] [place] [address] Pamela Skelton NP 06/04/2025 Results Follow-Up [facility] [address] [place] [address] Laureano, Betty, TUBE KNITTER URINE CULTURE 06/04/2025 Orders Only [facility] [address] [place] [address] Laureanodecember, TUBE KNITTER Acute cystitis without hematuria (Primary Dx) 06/03/2025 Refill [facility] [address] [place] [address] Laureanodecember, TUBE KNITTER Benign prostatic hyperplasia without lower urinary tract symptoms 06/02/[address] [place] [address] Pamela Skelton NP 06/01/2025 Orders Only [facility] [address] [place] [address] Laureanodecember, TUBE KNITTER Benign prostatic hyperplasia with urinary obstruction (Primary Dx) 05/28/2025 Refill [facility] [address] [place] [address] Laureanodecember, TUBE KNITTER Benign prostatic hyperplasia without lower urinary tract symptoms 05/26/2025 Orders Only [facility] Information Management [place] [address] [place] [facility] [place] [address] Provider, Abstract 05/25/[address] [facility] [place] [address] Pamela Skelton NP 05/25/[address] [place] [address] Monique Orellana, CHANA Catheter 05/22/2025 11:20 AM CDT Office Visit [facility] [address] [place] [address] Laureanodecember, TUBE KNITTER Urinary catheter in place (Primary Dx) 05/21/[address] [place] [address] Pamela Skelton NP Documentation Only 05/20/2025 External Device Data STL ABSTRACTION Provider, Abstract 05/19/2025 External Device Data ST[facility] ABSTRACTION Provider, Abstract 05/19/2025 External Device Data [facility] ABSTRACTION Provider, Abstract 05/18/2025 10:00 AM CDT Office Visit [address] [place] [address] Pamela Skelton NP Gross hematuria (Primary Dx); Urinary retention 05/18/2025 Telephone [facility] [address] [place] [address] Dominique Jasso, JOSE Medication Assistance 05/18/2025 Telephone [facility] [address] [place] [address] Nathalie Vieira DO Erroneous encounter-disregard 05/16/2025 Results Follow-Up [address] [place] [address] Dominique Jasso, TUBE KNITTER URINE CULTURE 05/13/2025 5:20 PM CDT Office Visit [address] [place] [address] Dominique Jasso, TUBE KNITTER Urine retention (Primary Dx); Benign prostatic hyperplasia with urinary obstruction; Urinary catheter in place 05/13/2025 5:04 PM CDT - 05/13/2025 5:38 PM CDT Emergency [facility] Emergency Medicine [address] [phone] Atilio Harris, Discharge Disposition: Left without being seen 05/13/2025 Travel 05/13/2025 Nurse Triage [facility] [address] [place] [address] Nathalie Vieira DO 05/13/2025 Telephone [facility] [address] [place] [address] Nathalie Vieira, Medication Assistance 05/06/2025 Results Follow-Up [facility] [address] [place] [address] Cyndi Rudd, TUBE KNITTER COLON CANCER SCREEN, STOOL DNA 2025 External Device Data STL ABSTRACTION Provider, Abstract 04/30/2025 9:40 AM CDT Office Visit [facility] [address] [place] [address] Laureano, December, TUBE KNITTER Benign prostatic hyperplasia with nocturia (Primary Dx); Chronic midline low back pain with bilateral sciatica 04/22/2025 8:20 AM CDT Office Visit [facility] [address] [place] [address] Cyndi Rudd, TUBE KNITTER Chronic right-sided low back pain with left-sided sciatica (Primary Dx); Lesion of eyebrow; Screening for colon cancer 04/20/2025 Refill [facility] [address] [place] [address] Nathalie Vieira, Chronic right-sided low back pain [...] worry about transportation for future doctor visits, cotton picker medication, etc.? 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 Gender Identity Not on file Sexual Orientation [...] Mass Index 31.45 06/30/2025 11:10 AM CDT Plan of Treatment Upcoming Encounters Date Type Department Care Team (Late st Contact Info) Description 07/20/2025 1:30 PM LABOR ARBITRATOR Office Visit [facility] [place] [address] [place] [address] Pamela Skelton NP [address] [place] [address] Health Maintenance Due Date Last Done Comments FIT/FOBT Q 1 YEAR (AUTO ORDER) 1970 DTAP/TDAP/TD VACCINES (1 - Tdap) 1971 PNEUMOCOCCAL VACCINE 50+ YEA RS (1 of 2 - PCV) 1971 FIT/FOBT Q 1 year 1997 Flex Sig/CT Colonography Q 5 years 1997 RSV VACCINE (60+ or ) (1 - Risk 50-74 years 1-dose series) 2002 ZOSTER VACCINE (1 of 2) 2002 COLORECTAL CANCER SCREENING (AUTO ORDER) 07/01/2024 07/01/2014 COLORECTAL SCREENING 07/01/2024 07/01/2014 [place]) Preventative Visit/Annual Wellness Visit 09/03/2024 06/14/2022 INFLUENZA [...] infection) Benign prostatic hyperplasia with urinary retention URINE CULTURE Stat 06/18/2025 10:32 PM CDT URINALYSIS W/REFLEX MICROSCOPIC Stat 06/18/2025 9:17 PM CDT URINE CULTURE Routine 06/17/2025 5:23 PM CDT POC URINALYSIS DIPSTICK AUTOMATED Routine 06/17/2025 4:00 PM CDT Recurrent UTI (urinary tract infection) URINE CULTURE Routine 06/01/2025 12:56 PM CDT Urinary frequency POC URINALYSIS DIPSTICK AUTOMATED Routine 06/01/2025 12:54 PM CDT Benign prostatic hyperplasia with urinary obstruction BASIC METABOLIC PANEL Routine 05/18/2025 9:32 AM CDT URINE CULTURE Routine 05/13/2025 6:00 PM CDT Urine retention URINALYSIS W/REFLEX MICROSCOPIC Stat 05/13/2025 4:01 PM CDT COLON CANCER SCREEN, STOOL DNA Routine 04/30/2025 1:28 AM CDT Screening for colon cancer from Last 3 Months Results * PSA (06/30/2025 11:35 AM CDT) Pathologist [facility] PSA 3.07 < OR = 4.00 ng/mL [facility] Comment: The total PSA value from [...] or absence of disease. Test Performed at: [facility] [id number] [place] [address] Sherrie Liz MD Blood 06/30/2025 11:3 5 AM CDT 07/01/2025 5:28 AM CDT Cyndi Rudd TUBE KNITTER CHEMISTRY ORDERABLES Final Result [facility] [phone] [facility] [address] [place] [address] * (ABNORMAL) URINE CULTURE (06/30/2025 11:16 AM CDT) Only the most recent of5 resultswithin the time period is included. URINE CULTURE SEE NOTE(A) [facility] Comment: CULTURE, URINE, ROUTINE Micro Number: [id number] Test Status: Final Specimen Source: Urine, clean [...] cefuroxime, cephalexin and loracarbef. Test Performed at: [facility] [id number] [facility] [place] [address] Sherrie Liz MD Urine URINE SPECIMEN OBTAINED BY CLEAN CATCH PROCEDURE / Unknown 06/30/2025 11:16 AM CDT 07/01/2025 4:57 AM CDT Cyndi MORINP MICROBIOLOGY - GENERAL ORD ERABLES Final Result [facility] [phone] [facility] [address] [place] [address] * (ABNORMAL) POC URINALYSIS DIPSTICK AUTOMATED (06/30/2025 11:15 AM CDT) Only the most recent of3 resultswithin the time period is included. COLOR UA POC Yellow Pale to Dark Yellow [facility] CLARITY UA POC Clear Clear, Other [facility] GLUCOSE UA POC Negative Negative, Normal [facility] BILIRUBIN UA POC Negative Negative [facility] KETONES UA POC Negative Negative [facility] SPECIFIC GRAVITY UA POC 1.020 1.000 - 1.030 [facility] BLOOD UA POC Negative Negative [facility] PH UA POC 7.0 5.0 - 8.0 [facility] PROTEIN UA POC Trace(A) Negative [facility] UROBILINOGEN UA POC 0.2 <2.0 mg/dL [facility] NITRITE UA POC Positive(A) Negative [facility] LEUKOCYTE ESTERASE UA POC 1+(A) Negative [facility] KIT LOT NUMBER POC [phone] [facility] KIT EXP DATE POC 03/02/2026 [facility] Urine 06/30/2025 11:1 5 AM CDT Cyndi MORINP POINT OF CARE TESTING Asya l Result [facility] CLIA# [id number] [address] [place] [address] * (ABNORMAL) URINALYSIS WITH REFLEX MICROSCOPIC (06/18/2025 9:17 PM CDT) Only the most recent of2 resultswithin the time period is included. COLOR UA Yellow Pale to Dark Yellow 06/18/2025 9:59 PM CDT [facility] CLARITY UA Cloudy(A) Clear 06/18/2025 9:59 PM CDT [facility] SPECIFIC GRAVITY UA 1.020 1.003 - 1.035 06/18/2025 9:59 PM CDT [facility] PH UA 6.0 5.0 - 8.0 06/18/2025 9:59 PM CDT [facility] LEUKOCYTE ESTERASE UA 1+(A) Negative 06/18/2025 9:59 PM CDT [facility] NITRITE UA Positive(A) Negative 06/18/2025 9:59 PM CDT [facility] PROTEIN UA 2+(A) Negative 06/18/2025 9:59 PM CDT [facility] GLUCOSE UA Negative Negative 06/18/2025 9:59 PM CDT [facility] KETONES UA Negative Negative 06/18/2025 9:59 PM CDT [facility] UROBILINOGEN UA 0.2 <2.0 mg/dL 9:59 PM CDT [facility] BILIRUBIN UA Negative Negative 06/18/2025 9:59 PM CDT [facility] BLOOD UA 3+(A) Negative 06/18/2025 9:59 PM CDT [facility] WBC UA >100(A) 0 - 2 /hpf 06/18/2025 9:59 PM CDT [facility] RBC UA >100(A) 0 - 2 /hpf 06/18/2025 9:59 PM CDT [facility] BACTERIA UA 2+(A) Negative /hpf 06/18/2025 9:59 PM CDT [facility] Urine URINE SPECIMEN OBTAINED BY CLEAN CATCH PROCEDURE / Unknown Collection / Unknown 06/18/2025 9:17 PM CDT 06/18/2025 9:25 PM CDT Reginaldo GOLD URINE ORDERABLES Final Result [facility] CLIA # [id number] [address] [address] [place] [address] * BASIC METABOLIC PANEL (05/18/2025 9:32 AM CDT) Blood us Abstract Provider CHEMISTRY ORDERABLES Final Res ult * COLON CANCER SCREEN, STOOL DNA (04/30/2025 1:28 AM CDT) COLOGUARD RESULT Negative Negative [facility] Comment: The Cologuard (TM) test was performed [...] (Rosanna Gordon al, N Engl J Med 2014;370(14):1609-8956) The normal value (reference range) for this assay is negative. COLOGUARD RE-SCREENING RECOMMENDATION: Periodic colorectal cancer screening is an important part of preventive healthcare for asymptomatic individuals at average risk for colorectal cancer. Following a negative Cologuard result, the [place] Cancer Society and U.S. Multi-Society Task Force screening guidelines recommend a Cologuard re-screening interval of 3 years. References: [place] Cancer Society Guideline for Colorectal Cancer Screening: https://www.cancer.org/cancer/snnyq-ivovwb-sqshzu/szgwarmqt-gwbshcmqw-ovtzppb/ac s-rec ommendations.html.; Manuel SPEARS, Diaz VIGIL, Zoë MCCAIN, Colorectal Cancer Screening: Recommendations for Physicians and Patients from the U.S. Multi-Society Task Force on Colorectal Cancer Screening , Am J Gastroenterology 2017; 112:2077-7036. TEST DESCRIPTION: Composite algorithmic analysis of stool [...] screened with both Cologuard and colonoscopy. (Rosanna Christianson et al, N Engl J Med 2014;370(14):5607-4948.) Cologuard may produce a false negative or false positive result (no colorectal cancer or precancerous polyp present at colonoscopy follow up). A negative Cologuard test result does not guarantee the absence of CRC or advanced adenoma (pre-cancer). The current Cologuard screening interval is every 3 years. ([place] Cancer Society and U.S. Multi-Society Task Force). Cologuard performance data in a 10,000 patient pivotal study using colonoscopy as the reference method can be accessed at the following location: www.[employer]/results. Additional description of the Cologuard test process, warnings and precautions can be found at www.cologuard.com. Stool STOOL SPECIMEN / Unknown 04/30/2025 1:28 AM CDT 05/01/2025 6:45 PM CDT us Cyndi Suazo Rudd TUBE KNITTER BODY FLUIDS AND STOOLS Fin al Result [employer] CLIA # [id number] [address] , [address] [place] [address] from Last 3 Months Insurance [place] [facility] [employer] [id number] Care Teams Public Health Technician Relationship Specialty Start Date End Date Nathalie Vieira DO [address] [place] [address] PCP - General Family Practice 06/30/19
--- OUTSIDE RECORDS SUMMARY | 2025-07-07 09:25 | XMS_ITS | Encounter Summary ---
Author Organization [facility] Address [address] [place] [address] Care Team Providers Care Proof Sorter Name Role Phone Nathalie Vieira Primary Care Provider [phone] Encounter Details Date Type Department Care Team (Late st Contact Info) Description 07/03/2025 Results Follow-Up [facility] Medicine [place] [address] [place] [address] [facility] [address] [place] [address] POC URINALYSIS DIPSTICK AUTOMATED, URINE CULTURE, PSA Social History Tobacco Use Types Packs/Day Years [...] worry about transportation for future doctor visits, warehouse order picker medication, etc.? 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 Gender Identity Not on file Sexual Orientation Not on file documented as of this encounter Plan of Treatment Upcoming Encounters Date Type Department Care Team (Late st Contact Info) Description 07/20/2025 1:30 PM PHILOSOPHY INSTRUCTOR Office Visit [facility] Urology [address] [place] [address] Pamela Skelton NP [address] [facility] [address] [place] [address] Scheduled Orders Name Type Priority Associated Diagnoses Orde r Schedule URINE CULTURE Microbiology Routine Recurrent UTI (urinary tract infection) Expected: 07/17/2025, Expires: 07/03/2026 documented as of this encounter Visit Diagnoses Diagnosis Recurrent UTI (urinary tract infection)- Primary Urinary tract infection, site not specified documented in this encounter Care Teams Proof Sorter Relationship Specialty Start Date End Date Nathalie Vieira DO [address] [place] [address] PCP - General Family Practice 06/30/19 documented as of this encounter
--- OUTSIDE RECORDS SUMMARY | 2025-07-07 09:25 | XMS_ITS | Encounter Summary ---
Author Organization [facility] Address [address] [place] [address] Care Team Providers Care Napper Grinder Name Role Phone Nathalie Vieira DO Primary Care Provider Encounter Details Date Type Department Care Team (Latest Contact Info) Description 10/16/2005 Outpatient Historical [facility] Imaging Services [address] [place] [address] Monica Garcia MD NO ADDRESS ON FILE LUMBOSACRAL SPONDYLOSIS (Primary Dx) Social History Tobacco Use Types Packs/Day Years Used Date Smoking Tobacco: Never Assessed Sex and Gender Information Value Date Recorded Sex Assigned at Not on file Legal Sex Male 3:31 AM APPLIED 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
--- OUTSIDE RECORDS SUMMARY | 2025-07-07 09:25 | XMS_ITS | Encounter Summary ---
Author Organization [facility] Address 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 Topic: Medication Request >> May 13, 2025 2:02 PM Nasir Barba wrote: Caller Name: José Lu Callback Number: Telephone Information: Medication (Ask patient/caregiver to spell if possible): does not know the name. Note: All medication prescriptions can be requested using one [facility] Caller is requesting: Medication Question from Patient [...] st Contact Info) Description 07/20/2025 1:30 PM YARD MANAGER Office Visit [facility] Urology [place] [address] [facility] [address] [place] [address] Pamela Skelton NP [address] [place] [address] [place] [address] documented as of this encounter Visit Diagnoses Not on filedocumented in this encounter Care Teams Mortgage Collector Relationship Specialty Start Date End Date Nathalie Vieira DO [address] [place] [address] PCP - General Family Practice 06/30/19 documented as of this encounter
--- OUTSIDE RECORDS SUMMARY | 2025-07-07 09:25 | XMS_ITS | Encounter Summary ---
Author Organization [facility] Address 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 Gender Identity Not on file Sexual Orientation Not on file documented as of this encounter Plan of Treatment Upcoming Encounters Date Type Department Care Team (Late st Contact Info) Description 07/20/2025 1:30 PM REGIONAL TELECOMMUNICATIONS SPECIALIST Office Visit [facility] Urology [place] [address] [facility] [address] [place] [address] Pamela Skelton NP [address] [place] [phone] documented as of this encounter Visit Diagnoses Not on filedocumented in this encounter Care Teams Traffic Director Relationship Specialty Start Date End Date Nathalie Vieira DO [address] [place] [phone] PCP - General Family Practice 06/30/19 documented as of this encounter
--- OUTSIDE RECORDS SUMMARY | 2025-07-07 09:25 | XMS_ITS | Encounter Summary ---
Author Organization [facility] Address 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 Gender Identity Not on file Sexual Orientation Not on file documented as of this encounter Plan of Treatment Upcoming Encounters Date Type Department Care Team (Late st Contact Info) Description 07/20/2025 1:30 PM STEM SHAPER Office Visit [facility] Urology [place] [address] [facility] [address] [place] [address] Pamela Skelton, MOUNIKA [address] [place] [phone] documented as of this encounter Visit Diagnoses Not on filedocumented in this encounter Care Teams Criminal Investigative Agent Relationship Specialty Start Date End Date Nathalie Vieira DO [address] [place] [phone] PCP - General Family Practice 06/30/19 documented as of this encounter
--- OUTSIDE RECORDS SUMMARY | 2025-07-07 09:25 | XMS_ITS | Encounter Summary ---
Author Organization [facility] Address [address] [place] [address] Care Team Providers Care Screw Machine Hand Name Role Phone Nathalie Vieira DO Primary Care Provider Encounter Details Date Type Department Care Team (Latest Contact Info) Description 10/23/2006 Outpatient Historical [facility] Family Medicine- [place] [address] [place] [address] Mike Schaefer MD NO ADDRESS ON FILE Esophageal Reflux (Primary Dx); Pure Hypercholesterolem; Unspecified Chronic Ischemic Heart Disease Social History Tobacco Use Types Packs/Day Years Used Date Smoking Tobacco: Never Assessed Sex and Gender Information Value Date Recorded Sex Assigned at Not on file 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
--- OUTSIDE RECORDS SUMMARY | 2025-07-07 09:25 | XMS_ITS | Encounter Summary ---
Author Organization [facility] Address 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 Gender Identity Not on file Sexual Orientation Not on file documented as of this encounter Plan of Treatment Upcoming Encounters Date Type Department Care Team (Late st Contact Info) Description 07/20/2025 1:30 PM FLIGHT CONTROL SPECIALIST Office Visit [facility] Urology [address] [place] [phone] Pamela Skelton NP [address] [facility] [address] [place] [address] documented as of this encounter Visit Diagnoses Not on filedocumented in this encounter Care Teams General Medical Practitioner Relationship Specialty Start Date End Date Nathalie Vieira DO [address] [place] [phone] PCP - General Family Practice 06/30/19 documented as of this encounter
[2025-07-07 09:36] LABS: INR 0.86 (0.8-1.2); Prothrombin Time 12.30 SECONDS (12.1-14.9)
[2025-07-07 09:43] LABS: Alanine Aminotransferase 123 U/L (0-41); Albumin Level 3.8 g/dL (3.5-5.2); Alkaline Phosphatase 241 U/L (40-130); Anion Gap 14.1 (5-19); Aspartate Amino Transferase 76 U/L (0-40); Blood Urea Nitrogen 12 mg/dL (8-23); Calcium 9.2 mg/dL (8.5-10.5); Carbon Dioxide 22 mmol/L (22-29); Chloride 104 mmol/L (98-107); Creatinine Clr Calc Pharmacy 79.1866; Globulin 3.3 g/dL (1.3-4.6); Glucose 105 mg/dL (65-115); Lipase 56 U/L (13-60); Osmolality Calculated 282 mOsm/kg (285-295); Potassium 4.1 mmol/L (3.5-5.1); Sodium 136 mmol/L (136-145); Total Protein 7.1 g/dL (6.6-8.7)
[2025-07-07 09:46] LABS: Troponin(5th) Baseline 12 ng/L (0-15)
[2025-07-07 10:00] VITALS: BP 119/68; PULSE 82; O2SAT 96
== END 2025-07-07 10:01 | disposition home or self-care (01) ==
PROVIDERS: Emergency Provider Emergency Medicine; PCP Family Medicine
DX: R07.89 Other chest pain (principal); Z79.82 Long term (current) use of aspirin; I10 Essential (primary) hypertension; E78.2 Mixed hyperlipidemia
CPT/HCPCS: 36415; 71045; 80053; 83690; 84484; 85025; 85610; 93005; 99285; J9999

== ENCOUNTER → 2025-07-23 13:17 | Outpatient (BNVA) | payer OTHER, MEDICAID, SELFPAY | PROVIDERS: PCP Family Medicine; Visit Provider Orthopaedic Surgery | DX: Z98.890 Other specified postprocedural states (principal) | CPT/HCPCS: 99024 ==